=== PATIENT | female | born 1935 | race Caucasian/White ===

== ENCOUNTER 2016-10-09 02:19 | Emergency (ER) | payer MEDICARE, BC ==
[2016-10-09] MEDS ORDERED: OXYMETAZOLINE 0.05% NASL SPRAY 15 ML NASAL STA (02:49)
[2016-10-09] MEDS ORDERED: ACETAMINOPHEN TAB 325 MG TAB PO STA (03:53)
--- NOTE | 2016-10-09 03:54 | ED ---
ENT HPI - General Chief complaint: ENT Stated complaint: nose bleed Time Seen by Provider: 10/09/16 02:44 Source: patient, family Mode of arrival: wheelchair Limitations: no limitations - History of Present Illness Initial comments: This patient is an 80-year-old woman presenting to be evaluated for right-sided epistaxis. The patient states that this occurred between 1-2 hours ago. She had been sleeping and awoke with a feeling that her face was wet. At that time she noticed that her nose was bleeding and the patient states that she has been having recurrent episodes of this since the fall or early winter. She states that the bleeding usually is stopped by a cold compress but tonight's episode continued and when it did not stop after an hour she felt she should be seen here. The patient is denying chest pain, dyspnea, palpitations or syncope, lightheadedness, or other symptoms of anemia. MD complaint: epistaxis -: hour(s) Location: nose Severity: moderate Consistency: constant Improves with: none Worsens with: none Context-Epistaxis: history of similar - Related Data Home Medications Medication Instructions Recorded Confirmed Aspirin 81 mg PO DAILY 07/06/15 07/06/15 Previous Rx's Medication Instructions Recorded Acetaminophen Tab [Tylenol] 650 mg PO Q6HR PRN #0 tab 07/12/15 Aspirin 81 mg PO DAILY chew 07/12/15 Atorvastatin [Lipitor] 80 mg PO HS tab 07/12/15 Ensure 1 can PO TID-W/MEALS liquid 07/12/15 Ipratropium-Albuterol Nebulize 3 ml INHALATION RT-QID PRN 07/12/15 [Duoneb 0.5 mg-3 mg/3 ml Soln] ampul.neb Lisinopril [Zestril] 2.5 mg PO DAILY tab 07/12/15 Mag Hydrox/Al Hydrox/Simeth 30 ml PO Q4HR PRN #0 cup 07/12/15 [Maalox] Metoprolol Tartrate [Lopressor] 25 mg PO BID tab 07/12/15 Nitroglycerin Sl Tabs [Nitrostat] 0.4 mg SUBLINGUAL Q5M PRN #0 tab 07/12/15 Ticagrelor [Brilinta] 90 mg PO BID tab 07/12/15 Allergies Allergy/AdvReac Type Severity Reaction Status Date / Time amoxicillin trihydrate Allergy Unknown Verified 10/09/16 02:25 [From Augmentin] potassium clavulanate Allergy Unknown Verified 10/09/16 02:25 [From Augmentin] Review of Systems ROS Statement: Those systems with pertinent positive or pertinent negative responses have been documented in the HPI. ROS Other: All systems not noted in ROS Statement are negative. Constitutional: Denies: fever, chills, weakness ENT: Reports: epistaxis Cardiovascular: Denies: chest pain, palpitations, syncope Gastrointestinal: Denies: abdominal pain, vomiting Musculoskeletal: Denies: back pain Neurological: Denies: headache, weakness, numbness Psychiatric: Reports: anxiety Hematological/Lymphatic: Reports: other (Taking Plavix). Denies: easy bleeding Past Medical History Past Medical History: Chest Pain / Angina Additional Past Medical History / Comment(s): History of borderline diabetes, CVA, hypothyroidism and COPD. Patient noncompliant with medications. Last Myocardial Infarction Date:: 07/06/2015 History of Any Multi-Drug Resistant Organisms: None Reported Past Surgical History: Unable to Obtain Past Anesthesia/Blood Transfusion Reactions: No Reported Reaction Past Psychological History: Unable to Obtain Additional Psychological History / Comment(s): per family Jolly "patient has bouts of paranoia" Parviz "she gets fixated on things & there is no changing her mind" Smoking Status: Current some day smoker Past Alcohol Use History: None Reported Past Drug Use History: None Reported - Past Family History Mother Family Medical History: Congestive Heart Failure (CHF) General Exam Limitations: no limitations General appearance: alert, in no apparent distress Head exam: Present: atraumatic, normocephalic, normal inspection Eye exam: Present: normal appearance. Absent: scleral icterus, conjunctival injection ENT exam: Present: other (Initial examination reveals a small amount bleeding occurring from the right nare. Not able to visualize the site of bleeding due to large clot.) Neck exam: Present: normal inspection, full ROM. Absent: lymphadenopathy Respiratory exam: Present: normal lung sounds bilaterally. Absent: respiratory distress, wheezes, rales, rhonchi, stridor Cardiovascular Exam: Present: regular rate, normal rhythm, normal heart sounds. Absent: systolic murmur, diastolic murmur, rubs, gallop GI/Abdominal exam: Present: soft. Absent: tenderness Extremities exam: Present: normal inspection, normal capillary refill. Absent: pedal edema, calf tenderness Back exam: Present: normal inspection. Absent: CVA tenderness (R), CVA tenderness (L) Neurological exam: Present: alert Skin exam: Present: warm, dry, intact, normal color. Absent: rash Course Vital Signs 10/09/16 10/09/16 02:23 04:13 Temperature 97.6 F 98 F Pulse Rate 77 78 Respiratory 20 18 Rate Blood Pressure 112/60 110/66 O2 Sat by Pulse 96 99 Oximetry Medical Decision Making - Medical Decision Making This patient is an 80-year-old woman with right-sided epistaxis. I was able to remove a moderate size clot. I applied some oxymetazoline alone and then held pressure for proximally 20 minutes. This resulted in the bleeding stopping. I then was able to perform a good inspection and do not see any further source of bleeding. Bacitracin ointment applied to the nasal septum bilaterally. The patient observed then for another 30-40 minutes with no recurrent bleeding. The patient is asymptomatic and can be safely discharged home. Return parameters discussed Disposition Clinical Impression: Epistaxis Disposition: HOME SELF-CARE Condition: Good Instructions: Nosebleed (ED) Referrals: Jolly Loaiza DO [Primary Care Provider] - 1-2 days
[2016-10-09 04:14] VITALS: BP 110/66; PULSE 78; RESP 18; TEMP 98
== END 2016-10-09 04:14 | disposition home or self-care (01) ==
LOC: EC 02:19
DX: R04.0 Epistaxis (principal); Z86.73 Personal history of transient ischemic attack (TIA), and cerebral infarction without residual deficits; I25.2 Old myocardial infarction; Z79.02 Long term (current) use of antithrombotics/antiplatelets; Z79.899 Other long term (current) drug therapy; Z79.82 Long term (current) use of aspirin; F17.200 Nicotine dependence, unspecified, uncomplicated; Z88.1 Allergy status to other antibiotic agents; Z88.0 Allergy status to penicillin
CPT/HCPCS: 99282; 99283

== ENCOUNTER 2016-10-10 10:55 | Emergency (ER) | payer MEDICARE, BC ==
[2016-10-10] MEDS ORDERED: OXYMETAZOLINE 0.05% NASL SPRAY 15 ML NASAL STA (12:14)
[2016-10-10 13:16] LABS: Basophils # (A) 0.1 k/uL (0-0.2); Basophils % (A) 1 %; CH 31.4; CHCM 32.8; Eosinophils # (A) 0.2 k/uL (0-0.7); Eosinophils % (A) 2 %; HGB 13.6 gm/dL (11.4-16.0); Luc # (Auto) 0.31; Luc % (Auto) 2; Lymphocytes # (A) 2.7 k/uL (1.0-4.8); Lymphocytes % (A) 21 %; MCH 31.1 pg (25.0-35.0); MCHC 32.3 g/dL (31.0-37.0); MCV 96.2 fL (80.0-100.0); Monocytes # (A) 0.5 k/uL (0-1.0); Monocytes % (A) 4 %; Neutrophils % (A) 70 %; RBC 4.37 m/uL (3.80-5.40); RDW 13.8 % (11.5-15.5); WBC 12.9 k/uL (3.8-10.6); WBC (Perox) 13.06
[2016-10-10 13:27] LABS: Anion Gap 12 mmol/L; Blood Urea Nitrogen 18 mg/dL (7-17); Calcium 9.8 mg/dL (8.4-10.2); Carbon Dioxide 24 mmol/L (22-30); Chloride 108 mmol/L (98-107); Glucose 97 mg/dL (74-99); Non-African American GFR(MDRD) 58 (>60 ml/min/1.73 sqM); Potassium 4.4 mmol/L (3.5-5.1); Sodium 144 mmol/L (137-145)
--- NOTE | 2016-10-10 13:52 | ED ---
General Adult HPI - General Chief complaint: ENT Stated complaint: NOSEBLEED Time Seen by Provider: 10/10/16 11:27 Source: family Mode of arrival: wheelchair Limitations: no limitations - History of Present Illness Initial comments: 80-year-old female presented for evaluation of epistaxis that started this morning and has continued throughout the day. She states she was evaluated at this facility 2 days ago for the same complaint and symptoms were able to be controlled with nasal spray and nose clamp. She has been putting Vaseline in her nostril at the request of her son who is also physician but despite these measures symptoms resumed. She is on home Plavix and aspirin but denies any other blood thinners. There is no associated trauma. She admits that there was a mild case of dizziness in the morning following the bleeding but this is resolved and she is back to baseline. She denies chest pain, shortness breath, fevers, chills, nausea, vomiting, change in vision. - Related Data Home Medications Medication Instructions Recorded Confirmed Aspirin 81 mg PO DAILY@182907/06/15 10/10/16 Atorvastatin [Lipitor] 80 mg PO DAILY@182910/10/16 10/10/16 Clopidogrel [Plavix] 75 mg PO DAILY@182910/10/16 10/10/16 Ergocalciferol (Vitamin D2) 50,000 unit PO Q7D 10/10/16 10/10/16 [Vitamin D2] Lisinopril [Zestril] 5 mg PO DAILY@182910/10/16 10/10/16 Metoprolol Succinate (ER) [Toprol 25 mg PO DAILY@182910/10/16 10/10/16 Xl] Previous Rx's Medication Instructions Recorded Nitroglycerin Sl Tabs [Nitrostat] 0.4 mg SUBLINGUAL Q5M PRN #0 tab 07/12/15 Allergies Allergy/AdvReac Type Severity Reaction Status Date / Time amoxicillin trihydrate Allergy Unknown Verified 10/10/16 12:11 [From Augmentin] potassium clavulanate Allergy Unknown Verified 10/10/16 12:11 [From Augmentin] Review of Systems ROS Statement: Those systems with pertinent positive or pertinent negative responses have been documented in the HPI. ROS Other: All systems not noted in ROS Statement are negative. Constitutional: Denies: fever, chills Eyes: Denies: eye pain, eye discharge ENT: Reports: epistaxis, congestion. Denies: ear pain, throat pain Respiratory: Denies: cough, dyspnea Cardiovascular: Denies: chest pain, palpitations, dyspnea on exertion, syncope Endocrine: Denies: polydipsia, polyuria Gastrointestinal: Denies: abdominal pain, nausea, vomiting, diarrhea Genitourinary: Denies: urgency, dysuria Musculoskeletal: Denies: back pain, myalgia Skin: Denies: rash, lesions Neurological: Reports: other (Dizziness). Denies: headache, weakness Psychiatric: Denies: anxiety, depression Past Medical History Past Medical History: Chest Pain / Angina Additional Past Medical History / Comment(s): History of borderline diabetes, CVA, hypothyroidism and COPD. Patient noncompliant with medications. Last Myocardial Infarction Date:: 07/06/2015 History of Any Multi-Drug Resistant Organisms: None Reported Past Surgical History: Bowel Resection, Heart Catheterization With Stent Past Anesthesia/Blood Transfusion Reactions: No Reported Reaction Past Psychological History: Unable to Obtain Additional Psychological History / Comment(s): per family Jolly "patient has bouts of paranoia" Parviz "she gets fixated on things & there is no changing her mind" Smoking Status: Current some day smoker Past Alcohol Use History: None Reported Past Drug Use History: None Reported - Past Family History Mother Family Medical History: Congestive Heart Failure (CHF) General Exam Limitations: no limitations General appearance: alert, in no apparent distress Head exam: Present: atraumatic, normocephalic Eye exam: Present: normal appearance, PERRL, EOMI Pupils: Present: normal accommodation. Absent: unequal ENT exam: Present: other (Active epistaxis when nose clamp removed, scant blood in posterior oropharynx) Neck exam: Present: normal inspection. Absent: tenderness Respiratory exam: Present: normal lung sounds bilaterally. Absent: respiratory distress, wheezes, rales, rhonchi, stridor Cardiovascular Exam: Present: regular rate, normal rhythm. Absent: bradycardia , tachycardia GI/Abdominal exam: Present: soft. Absent: distended, tenderness Rectal exam: Present: deferred Extremities exam: Present: normal inspection, full ROM Back exam: Present: normal inspection, full ROM. Absent: tenderness, CVA tenderness (R) Neurological exam: Present: alert, oriented X3, CN II-XII intact, normal gait. Absent: altered Psychiatric exam: Present: normal affect, normal mood Skin exam: Present: warm, dry, intact Course Vital Signs 10/10/16 10/10/16 11:02 14:08 Temperature 97.2 F L 97.9 F Pulse Rate 85 83 Respiratory 20 14 Rate Blood Pressure 159/69 121/60 O2 Sat by Pulse 95 94 L Oximetry EKG Findings - EKG Comments: EKG Findings:: EKG shows normal sinus rhythm with ventricular rate of 80, JOSE ENRIQUE 172 QRS 90, QT/QTc 420/484 Medical Decision Making - Medical Decision Making 80-year-old female presented for evaluation of epistaxis that started this morning. She is currently on Plavix and aspirin and was seen at this facility 2 days ago for similar symptoms which resolved with nasal spray and clamping. Today she presents stating that she will not take nasal packing and that the bleeding has to be controlled by other means. On physical examination there is slow bleeding from the right nare and scant blood in the posterior oropharynx. Patient instructed to blow her nose, Afrin provided, and tongue depressor clamp was applied for no less than 20 minutes. Upon removal the patient had resolution of her bleeding. She was observed for the next 30-45 minutes and had no return of symptoms. She was advised to follow-up with her primary care physician but to return to this facility if her symptoms should worsen or persist. Patient acknowledged an understanding of this information and agreed with this plan of care. She stated that she are he had a referral for an ENT specialist and none would be needed at this time. - Lab Data Result diagrams: 10/10/16 13:03 10/10/16 13:03 Lab Results 10/10/16 10/10/16 Range/Units 13:03 13:03 WBC 12.9 H (3.8-10.6) k/uL RBC 4.37 (3.80-5.40) m/uL Hgb 13.6 (11.4-16.0) gm/dL Hct 42.0 (34.0-46.0) % MCV 96.2 (80.0-100.0) fL MCH 31.1 (25.0-35.0) pg MCHC 32.3 (31.0-37.0) g/dL RDW 13.8 (11.5-15.5) % Plt Count 363 (150-450) k/uL Neutrophils % 70 % Lymphocytes % 21 % Monocytes % 4 % Eosinophils % 2 % Basophils % 1 % Neutrophils # 9.0 H (1.3-7.7) k/uL Lymphocytes # 2.7 (1.0-4.8) k/uL Monocytes # 0.5 (0-1.0) k/uL Eosinophils # 0.2 (0-0.7) k/uL Basophils # 0.1 (0-0.2) k/uL Sodium 144 (137-145) mmol/L Potassium 4.4 (3.5-5.1) mmol/L Chloride 108 H (98-107) mmol/L Carbon Dioxide 24 (22-30) mmol/L Anion Gap 12 mmol/L BUN 18 H (7-17) mg/dL Creatinine 0.93 (0.52-1.04) mg/dL Est GFR (MDRD) Af Amer >60 (>60 ml/min/1.73 sqM) Est GFR (MDRD) Non-Af 58 (>60 ml/min/1.73 sqM) Glucose 97 (74-99) mg/dL Calcium 9.8 (8.4-10.2) mg/dL Disposition Clinical Impression: Epistaxis, recurrent, Epistaxis Disposition: HOME SELF-CARE Condition: Stable Instructions: Nosebleed (ED) Referrals: Jolly Loaiza DO [Primary Care Provider] - 1-2 days Time of Disposition: 13:52
[2016-10-10 14:11] VITALS: BP 121/60; PULSE 83; RESP 14; TEMP 97.9
== END 2016-10-10 14:10 | disposition home or self-care (01) ==
LOC: EC 10:55
DX: R04.0 Epistaxis (principal); F17.200 Nicotine dependence, unspecified, uncomplicated; Z79.82 Long term (current) use of aspirin; Z79.02 Long term (current) use of antithrombotics/antiplatelets; Z91.14 Patient's other noncompliance with medication regimen; Z95.5 Presence of coronary angioplasty implant and graft; Z88.0 Allergy status to penicillin; Z79.899 Other long term (current) drug therapy; Z86.73 Personal history of transient ischemic attack (TIA), and cerebral infarction without residual deficits
CPT/HCPCS: 36415; 80048; 85025; 93005; 99283

== ENCOUNTER 2017-01-24 13:24 | Inpatient (IN) | payer MEDICARE, BC ==
[2017-01-24] MEDS ORDERED: SODIUM CHLORIDE 0.9% 500 ML IV STA (14:27)
--- NOTE | 2017-01-24 14:31 | ED ---
General Adult HPI - General Chief complaint: Weakness Stated complaint: Dehydration Time Seen by Provider: 01/24/17 13:40 Source: patient, RN notes reviewed Mode of arrival: ambulatory Limitations: no limitations - History of Present Illness Initial comments: This is an 81-year-old female who presents emergency Department complaining that she has been weaker over the last 2 weeks. Patient states she's been lightheaded and also vomits almost every single day. Patient states currently she is not nauseated. Patient states she does not feel lightheaded currently while lying in bed. Patient states she recently had a CAT scan of her chest abdomen pelvis but she cannot tell me what for. He was done at another hospital we will obtain those records. Patient denies any fever but states she' s always cold. Patient denies taking any Motrin or Tylenol today. Patient denies headache patient denies numbness weakness. Patient denies any back pain. Patient denies any dysuria hematuria urinary frequency. - Related Data Home Medications Medication Instructions Recorded Confirmed Aspirin 81 mg PO DAILY 07/06/15 01/24/17 Atorvastatin [Lipitor] 80 mg PO DAILY 10/10/16 01/24/17 Clopidogrel [Plavix] 75 mg PO DAILY 10/10/16 01/24/17 Ergocalciferol (Vitamin D2) 50,000 unit PO Q7D 10/10/16 01/24/17 [Vitamin D2] Lisinopril [Zestril] 5 mg PO DAILY 10/10/16 01/24/17 Metoprolol Succinate (ER) [Toprol 25 mg PO DAILY 10/10/16 01/24/17 Xl] Levothyroxine Sodium [Synthroid] 50 mcg PO DAILY 01/24/17 01/24/17 Previous Rx's Medication Instructions Recorded Nitroglycerin Sl Tabs [Nitrostat] 0.4 mg SUBLINGUAL Q5M PRN #0 tab 07/12/15 Allergies Allergy/AdvReac Type Severity Reaction Status Date / Time amoxicillin trihydrate Allergy Unknown Verified 01/24/17 14:53 [From Augmentin] potassium clavulanate Allergy Unknown Verified 01/24/17 14:52 [From Augmentin] Review of Systems ROS Statement: Those systems with pertinent positive or pertinent negative responses have been documented in the HPI. ROS Other: All systems not noted in ROS Statement are negative. Past Medical History Past Medical History: Chest Pain / Angina Additional Past Medical History / Comment(s): History of borderline diabetes, CVA, hypothyroidism and COPD. Patient noncompliant with medications. Last Myocardial Infarction Date:: 07/06/2015 History of Any Multi-Drug Resistant Organisms: None Reported Past Surgical History: Bowel Resection, Heart Catheterization With Stent Past Anesthesia/Blood Transfusion Reactions: No Reported Reaction Past Psychological History: Unable to Obtain Smoking Status: Current some day smoker Past Alcohol Use History: None Reported Past Drug Use History: None Reported - Past Family History Mother Family Medical History: Congestive Heart Failure (CHF) General Exam - General Exam Comments Initial Comments: GENERAL: Patient is well-developed and well-nourished. Patient is nontoxic and well- hydrated and is in mild distress. ENT: Neck is soft and supple. No significant lymphadenopathy is noted. Oropharynx is clear. Moist mucous membranes. Neck has full range of motion without eliciting any pain. EYES: The sclera were anicteric and conjunctiva were pink and moist. Extraocular movements were intact and pupils were equal round and reactive to light. Eyelids were unremarkable. PULMONARY: Unlabored respirations. Good breath sounds bilaterally. No audible rales rhonchi or wheezing was noted. CARDIOVASCULAR: Patient is bradycardic at about 30 beats a minute ABDOMEN: Soft and nontender with normal bowel sounds. No palpable organomegaly was noted. There is no palpable pulsatile mass. SKIN: Skin is clear with no lesions or rashes and otherwise unremarkable. NEUROLOGIC: Patient is alert and oriented x3. Cranial nerves II through XII are grossly intact. Motor and sensory are also intact. Normal speech, volume and content. Symmetrical smile.. MUSCULOSKELETAL: Normal extremities with adequate strength and full range of motion. LYMPHATICS: No significant lymphadenopathy is noted PSYCHIATRIC: Normal psychiatric evaluation. Normal interpersonal interactions appears functionally intact in deals appropriately with others. No signs of depression. No signs of anxiety. Limitations: no limitations Course Vital Signs 01/24/17 01/24/17 01/24/17 13:30 13:37 14:00 Temperature 98.3 F Pulse Rate 32 L 31 L Pulse Rate [ 31 L Crude Oil Driver ] Respiratory 22 18 22 Rate Blood Pressure 170/68 140/40 O2 Sat by Pulse 96 98 Oximetry 01/24/17 01/24/17 01/24/17 15:00 15:06 15:15 Temperature Pulse Rate 34 L 29 L 29 L Pulse Rate [ Crude Oil Driver ] Respiratory 22 16 16 Rate Blood Pressure 170/50 148/60 161/73 O2 Sat by Pulse 99 96 96 Oximetry 01/24/17 16:11 Temperature Pulse Rate 29 L Pulse Rate [ Crude Oil Driver ] Respiratory 16 Rate Blood Pressure 148/67 O2 Sat by Pulse 96 Oximetry Medical Decision Making - Medical Decision Making EKG shows third-degree AV block at 32 bpm QRS is under 4 QT interval 702 QTC is 512. Patient's EKG shows no ST segment elevation or depression. Patient is having a third-degree heart block I spoke with Dr. Ojeda that we can also the patient he called me again wanted the patient minute the ICU. I spoke with Dr. Orozco he agreed to take the patient in the ICU. I spoke with Dr. Riojas and he agreed to accept the patient. I wrote admitting orders and put the patient in the ICU. I canceled the patient's metoprolol - Lab Data Result diagrams: 01/24/17 14:13 01/24/17 14:13 Lab Results 01/24/17 01/24/17 01/24/17 Range/Units 14:13 14:13 14:13 WBC (3.8-10.6) k/uL RBC (3.80-5.40) m/uL Hgb (11.4-16.0) gm/dL Hct (34.0-46.0) % MCV (80.0-100.0) fL MCH (25.0-35.0) pg MCHC (31.0-37.0) g/dL RDW (11.5-15.5) % Plt Count (150-450) k/uL Neutrophils % % Lymphocytes % % Monocytes % % Eosinophils % % Basophils % % Neutrophils # (1.3-7.7) k/uL Lymphocytes # (1.0-4.8) k/uL Monocytes # (0-1.0) k/uL Eosinophils # (0-0.7) k/uL Basophils # (0-0.2) k/uL PT 13.0 H (9.0-12.0) sec INR 1.3 (<1.1) APTT 21.5 L (22.0-30.0) sec Sodium 140 (137-145) mmol/L Potassium 4.7 (3.5-5.1) mmol/L Chloride 110 H (98-107) mmol/L Carbon Dioxide 19 L (22-30) mmol/L Anion Gap 11 mmol/L BUN 51 H (7-17) mg/dL Creatinine 1.20 H (0.52-1.04) mg/dL Est GFR (MDRD) Af Amer 52 (>60 ml/min/1.73 sqM) Est GFR (MDRD) Non-Af 43 (>60 ml/min/1.73 sqM) Glucose 107 H (74-99) mg/dL Calcium 8.8 (8.4-10.2) mg/dL Magnesium 2.5 H (1.6-2.3) mg/dL Total Bilirubin 0.5 (0.2-1.3) mg/dL AST 142 H (14-36) U/L ALT 276 H (9-52) U/L Alkaline Phosphatase 141 H (38-126) U/L Total Creatine Kinase 41 (30-135) U/L CK-MB (CK-2) 1.1 (0.0-2.4) ng/mL CK-MB (CK-2) Rel Index 2.7 Troponin I 0.025 (0.000-0.034) ng/mL Total Protein 5.6 L (6.3-8.2) g/dL Albumin 3.2 L (3.5-5.0) g/dL /02/03 Range/Units 14:13 WBC 11.2 H (3.8-10.6) k/uL RBC 4.15 (3.80-5.40) m/uL Hgb 13.3 (11.4-16.0) gm/dL Hct 39.8 (34.0-46.0) % MCV 95.9 (80.0-100.0) fL MCH 32.0 (25.0-35.0) pg MCHC 33.4 (31.0-37.0) g/dL RDW 15.1 (11.5-15.5) % Plt Count 227 (150-450) k/uL Neutrophils % 68 % Lymphocytes % 25 % Monocytes % 5 % Eosinophils % 1 % Basophils % 1 % Neutrophils # 7.6 (1.3-7.7) k/uL Lymphocytes # 2.8 (1.0-4.8) k/uL Monocytes # 0.5 (0-1.0) k/uL Eosinophils # 0.1 (0-0.7) k/uL Basophils # 0.1 (0-0.2) k/uL PT (9.0-12.0) sec INR (<1.1) APTT (22.0-30.0) sec Sodium (137-145) mmol/L Potassium (3.5-5.1) mmol/L Chloride (98-107) mmol/L Carbon Dioxide (22-30) mmol/L Anion Gap mmol/L BUN (7-17) mg/dL Creatinine (0.52-1.04) mg/dL Est GFR (MDRD) Af Amer (>60 ml/min/1.73 sqM) Est GFR (MDRD) Non-Af (>60 ml/min/1.73 sqM) Glucose (74-99) mg/dL Calcium (8.4-10.2) mg/dL Magnesium (1.6-2.3) mg/dL Total Bilirubin (0.2-1.3) mg/dL AST (14-36) U/L ALT (9-52) U/L Alkaline Phosphatase (38-126) U/L Total Creatine Kinase (30-135) U/L CK-MB (CK-2) (0.0-2.4) ng/mL CK-MB (CK-2) Rel Index Troponin I (0.000-0.034) ng/mL Total Protein (6.3-8.2) g/dL Albumin (3.5-5.0) g/dL Critical Care Time Critical Care Time: Yes Total Critical Care Time: 35 Disposition Clinical Impression: Third degree heart block Disposition: ADMITTED IP TO THIS HOSP Referrals: Jolly Loaiza DO [Primary Care Provider] - 1-2 days Time of Disposition: 16:16
[2017-01-24 14:59] LABS: Calcium 8.8 mg/dL (8.4-10.2); Magnesium 2.5 mg/dL (1.6-2.3); Potassium 4.7 mmol/L (3.5-5.1); Total Bilirubin 0.5 mg/dL (0.2-1.3); Total Protein 5.6 g/dL (6.3-8.2)
--- NOTE | 2017-01-24 15:06 | XR ---
EXAMINATION TYPE: XR chest 2V DATE OF EXAM: 01/24/2017 COMPARISON: 07/08/2015 HISTORY: 81-year-old female with chest pain TECHNIQUE: AP and lateral views FINDINGS: Heart is mildly enlarged. Diffuse interstitial prominence. Increased patchy peripheral right basilar opacity. No significant pleural effusion seen on the lateral view. 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 IMPRESSION: 1. Patchy peripheral right basilar infiltrate. Correlate for any symptoms of pneumonia. 2. Diffuse interstitial and vascular prominence with mild cardiomegaly. Correlate to exclude mild CHF .
[2017-01-24 15:14] LABS: Basophils # (A) 0.1 k/uL (0-0.2); Basophils % (A) 1 %; CH 30.7; CHCM 32.3; Eosinophils # (A) 0.1 k/uL (0-0.7); Eosinophils % (A) 1 %; HCT 39.8 % (34.0-46.0); HDW 2.46; HGB 13.3 gm/dL (11.4-16.0); Luc # (Auto) 0.18; Luc % (Auto) 2; Lymphocytes # (A) 2.8 k/uL (1.0-4.8); Lymphocytes % (A) 25 %; MCHC 33.4 g/dL (31.0-37.0); MCV 95.9 fL (80.0-100.0); Mean Platelet Volume 9.5; Monocytes # (A) 0.5 k/uL (0-1.0); Monocytes % (A) 5 %; Neutrophils # (A) 7.6 k/uL (1.3-7.7); Neutrophils % (A) 68 %; RBC 4.15 m/uL (3.80-5.40); RDW 15.1 % (11.5-15.5); WBC 11.2 k/uL (3.8-10.6); WBC (Perox) 11.68
[2017-01-24 15:16] LABS: INR 1.3 (<1.1)
[2017-01-24 15:20] LABS: Partial Thromboplastin Time 21.5 sec (22.0-30.0)
[2017-01-24] MEDS ORDERED: ceFAZolin 1,000 MG in SODIUM CHLORIDE 0.9% IRRIGATIO 250 ML IRRIGATION ONE (15:24)
[2017-01-24] MEDS ORDERED: ceFAZolin 2 GM in SODIUM CHLORIDE 0.9% 100 ML IVPB ONE (15:24)
[2017-01-24 15:35] LABS: Creatine Kinase MB 1.1 ng/mL (0.0-2.4); Troponin I 0.025 ng/mL (0.000-0.034)
[2017-01-24] MEDS ORDERED: NALOXONE 0.4 MG/ML 1 ML VIAL IV PRN (16:16)
[2017-01-24] MEDS ORDERED: SODIUM CHLORIDE 0.9% 1,000 ML IV SCH (16:30)
[2017-01-24 17:22] LABS: Glucose,Whole Blood 106 mg/dL (75-99)
[2017-01-24] MEDS ORDERED: LEVOFLOXACIN 500 MG TAB PO STA (18:05)
[2017-01-24] MEDS: amLODIPine 5 MG TAB PO SCH (18:33)
[2017-01-24] MEDS ORDERED: IPRATROPIUM-ALBUTEROL 3 ML NEB INHALATION PRN (19:33)
--- NOTE | 2017-01-24 21:05 | P.CNPUL ---
History of Present Illness Consult date: 01/24/17 Requesting physician: Heidi Kyle Reason for consult: COPD, pleural effusion, other (Third-degree AV block.) Chief complaint: Profound weakness and lightheadedness History of present illness: This is an 81-year-old female who was the mother of Dr. Loaiza, with history of multiple medical problems including previous CVA, previous ST elevation myocardial infarction and previous stent placement, history of COPD, 40-pack- year smoker, history of hypertension, hyperlipidemia, and history of borderline diabetes as well as hypothyroidism. Patient presented to the ER with 2 weeks history of feeling weak, tired, has been losing weight almost 20 pounds in the last few months, feeling lightheaded intermittently, and she had significant cold intolerance. Upon evaluation in the ER, patient was found to be in third- degree AV block. Patient was seen by cardiology, beta blockers/metoprolol placed on hold, and if she remains in third-degree AV block, permanent pacemaker implantation is planned to be done in a.m. Patient was admitted to the intensive care unit, and I was asked to see her on consultation. Recently, according to her son ,, patient had extensive workup including CT of abdomen chest and pelvis, and she was found to have a 2.0 cm subpleural nodule in the right middle lobe area, she was also noted to have right hilar lymph node measuring 1.5 cm, small right pleural effusion was noted, and she was also noted to have an adrenal nodule about 1.5 cm in size. Of course there is some concern about possible malignancy knowing in fact that the patient has been a heavy smoker over the years, and she has been losing weight significantly over the last couple of months. No repeat CT of the chest was done, however her chest x-ray showed patchy perihilar right basilar infiltrate, no significant pleural effusion was noted, and there was slight prominence of the interstitium. Patient also describes multiple GI symptoms including intermittent episodes of nausea vomiting and diarrhea, but no melena, no hematemesis, no dysuria, no frequency, no urgency. Patient had a recent lab tests showing that she was admitted to hypothyroid with TSH about 12. Considering her third-degree AV block, and considering her recent abnormal CT of the chest which was done at [facility], considering her weight loss , and considering the patient was admitted to the intensive care unit, I was asked to see her on consultation. Review of Systems 14 point review of systems were obtained, please refer to pertinent positives and negatives in HPI. Patient has occasional headaches, no blurred vision, she has intermittent episodes of lightheadedness especially in the last 2 weeks. Patient has intermittent episodes of cough and wheezing, cough is productive with whitish phlegm. Denies any chest pains, denies feeling any palpitations. She has multiple GI symptoms including nausea vomiting and occasional diarrhea, and definite weight loss. Patient describes no symptoms of dysuria frequency or urgency. No melena no hematemesis. She has some vague aches and pains, and generalized weakness as well as cold intolerance. Past Medical History Past Medical History: Coronary Artery Disease (CAD), Chest Pain / Angina ( Patient had previous ME and stent placement.), COPD, CVA/TIA (Patient had previous CVA with left-sided hemiparesis recovered almost fully, uses a walker with wheels to ambulate.), Diabetes Mellitus, Hyperlipidemia, Liver Disease ( Abnormal liver enzymes felt to be most likely related to her recent dose of Lipitor which is presently on hold.), Myocardial Infarction (ME), Thyroid Disorder Additional Past Medical History / Comment(s): History of borderline diabetes, CVA, hypothyroidism and COPD. Patient noncompliant with medications. Last Myocardial Infarction Date:: 07/06/2015 History of Any Multi-Drug Resistant Organisms: None Reported Past Surgical History: Bowel Resection, Heart Catheterization With Stent Past Anesthesia/Blood Transfusion Reactions: No Reported Reaction Date of Last Stent Placement:: 2014 Past Psychological History: Unable to Obtain Additional Psychological History / Comment(s): per family Jolly "patient has bouts of paranoia" Parviz "she gets fixated on things & there is no changing her mind" Smoking Status: Former smoker - Past Family History Mother Family Medical History: Congestive Heart Failure (CHF) Medications and Allergies Home Medications Medication Instructions Recorded Confirmed Type Aspirin 81 mg PO DAILY 07/06/15 01/24/17 History Atorvastatin [Lipitor] 80 mg PO DAILY 10/10/16 01/24/17 History Clopidogrel [Plavix] 75 mg PO DAILY 10/10/16 01/24/17 History Ergocalciferol (Vitamin D2) 50,000 unit PO Q7D 10/10/16 01/24/17 History [Vitamin D2] Lisinopril [Zestril] 5 mg PO DAILY 10/10/16 01/24/17 History Metoprolol Succinate (ER) [Toprol 25 mg PO DAILY 10/10/16 01/24/17 History Xl] Levothyroxine Sodium [Synthroid] 50 mcg PO DAILY 01/24/17 01/24/17 History Allergies Allergy/AdvReac Type Severity Reaction Status Date / Time amoxicillin trihydrate Allergy Unknown Verified 01/24/17 14:53 [From Augmentin] potassium clavulanate Allergy Unknown Verified 01/24/17 14:52 [From Augmentin] Physical Exam Vitals: Vital Signs Temp Pulse Pulse Resp BP BP Pulse Ox 01/24/17 19:00 27 L 15 194/83 98 01/24/17 18:50 29 L 39 H 193/61 94 L 01/24/17 18:40 30 L 9 L 193/61 87 L 01/24/17 18:30 30 L 11 L 98 01/24/17 18:20 30 L 14 182/79 97 01/24/17 18:10 30 L 8 L 182/79 95 01/24/17 18:00 30 L 11 L 182/79 98 01/24/17 17:50 30 L 24 131/84 97 01/24/17 17:40 31 L 33 H 131/84 97 01/24/17 17:30 30 L 18 131/84 97 01/24/17 17:20 31 L 98 01/24/17 17:18 47 L 01/24/17 17:05 97.1 F L 29 L 16 174/66 96 01/24/17 16:55 96.9 F L 30 L 14 182/79 97 01/24/17 16:11 29 L 16 148/67 96 01/24/17 15:15 29 L 16 161/73 96 01/24/17 15:06 29 L 16 148/60 96 01/24/17 15:00 34 L 22 170/50 99 01/24/17 14:00 31 L 22 140/40 98 01/24/17 13:37 98.3 F 32 L 18 170/68 96 01/24/17 13:30 31 L 22 Intake and Output 01/24/17 01/24/17 01/24/17 06:59 14:59 22:59 Intake Total 100 Balance 100 Intake: IV 100 Sodium Chloride 0.9% 1, 100 000 ml @ 50 mls/hr IV . Q20H [facility] Rx#:[id number] Other: Voiding Method Bedpan Weight 51.71 kg 52 kg Patient Weight 01/25/17 06:59 Weight 52 kg GENERAL: Patient is well-developed and well-nourished. Patient is nontoxic and well- hydrated not in any form of respiratory distress. ENT: Neck is soft and supple. No neck masses, no JVD, no cervical lymphadenopathy. EYES: The sclera were anicteric and conjunctiva were pink and moist. Extraocular movements were intact PULMONARY: Unlabored respirations. Minimal crackles at the right base, some wheezing on forced expiratory maneuver was noted. CARDIOVASCULAR: Patient is bradycardic at about 37 beats a minute ABDOMEN: Soft and nontender with normal bowel sounds. No palpable organomegaly was noted. There is no palpable pulsatile mass. SKIN: Skin is clear with no lesions or rashes and otherwise unremarkable. NEUROLOGIC: No gross focal neurologic deficit MUSCULOSKELETAL: Normal extremities with adequate strength LYMPHATICS: No significant lymphadenopathy is noted PSYCHIATRIC: Normal psychiatric evaluation. Normal interpersonal interactions appears functionally intact in deals appropriately with others. No signs of depression. No signs of anxiety. Results - Laboratory Findings CBC and BMP: 01/24/17 14:13 01/24/17 14:13 PT/INR, D-dimer PT 13.0 sec (9.0-12.0) H 01/24/17 14:13 INR 1.3 (<1.1) 01/24/17 14:13 Abnormal lab findings: Abnormal Labs 01/24/17 01/24/17 01/24/17 14:13 14:13 14:13 WBC 11.2 H PT 13.0 H APTT 21.5 L Chloride 110 H Carbon Dioxide 19 L BUN 51 H Creatinine 1.20 H Glucose 107 H POC Glucose (mg/dL) Magnesium 2.5 H AST 142 H ALT 276 H Alkaline Phosphatase 141 H Total Protein 5.6 L Albumin 3.2 L 01/24/17 17:20 WBC PT APTT Chloride Carbon Dioxide BUN Creatinine Glucose POC Glucose (mg/dL) 106 H Magnesium AST ALT Alkaline Phosphatase Total Protein Albumin - Diagnostic Findings Chest x-ray: image reviewed (Patchy peripheral right base infiltrate suspected, slight prominence of the pulmonary vasculature was also noted.) Assessment and Plan Plan: Impression: 1 acute complete heart block, third-degree AV block, most likely the patient will require permanent pacemaker implantation. This is being planned to be done by cardiology in a.m. In the meantime, beta blockers are placed on hold. 2 suspect right lower lobe infiltrate, community-acquired pneumonia hence the patient will be started on Levaquin. 3 suspect significant component of COPD with mild exacerbation, patient is at least a [id number] smoker. [address] of the chest suggestive of right middle lobe subpleural nodule, small pleural effusion, and adrenal abnormality, malignancy would be considered in the differential, however I plan to address this on outpatient basis by possibly arranging for a PET scan and decide whether to proceed with CT-guided needle biopsy of the peripheral subpleural nodule in the right middle lobe area. 5 history of CVA and left-sided weakness, resolved. 6 history of hypothyroidism, patient is on replacement therapy. 7 history of previous ME, ST elevation myocardial infarction requiring stent placement few years ago. 8 weight loss, exact etiology is not clear at this point, however pulmonary malignancy would have to be considered in the differential. 9 acute kidney injury, possibly prerenal azotemia, patient will be hydrated cautiously and follow up BUN and creatinine will be rechecked in a.m. Recommendation: I had a long discussion with the patient and her son Dr. Loaiza at bedside, and felt at this point will treat all the above issues accordingly. Patient will be given bronchodilators, antibiotics, patient will have a pacemaker implantation/permanent in a.m., and hopefully we could address the issue of her abnormal CT of the chest and pulmonary issues on outpatient basis. We'll continue to follow. Time with Patient: Greater than 30
[2017-01-24] MEDS ORDERED: ONDANSETRON 4 MG/2 ML VIAL IVP PRN (21:21)
[2017-01-24 22:24] LABS: Appearance,Urine Cloudy (Clear); Bacteria,Urine Occasional /hpf; Bilirubin,Urine Negative (Negative); Glucose,Urine (UA) Negative (Negative); Ketones,Urine Negative (Negative); Leukocyte Esterase,Urine Large (Negative); Mucus,Urine Rare /hpf; Nitrite,Urine Negative (Negative); Particle Count 8940; Protein,Urine 1+ (Negative); RBC,Urine 5 /hpf (0-5); Specific Gravity,Urine 1.023 (1.001-1.035); Squamous Epithelial Cell,Urine 6 /hpf (0-4); UA Billing (MACRO vs. MICRO) MICRO; WBC,Urine 38 /hpf (0-5)
[2017-01-25 05:36] LABS: Basophils % (A) 0 %; CH 31.1; CHCM 31.8; Eosinophils # (A) 0.1 k/uL (0-0.7); Eosinophils % (A) 1 %; HCT 37.2 % (34.0-46.0); HDW 2.38; HGB 11.8 gm/dL (11.4-16.0); Luc # (Auto) 0.17; Luc % (Auto) 2; Lymphocytes # (A) 2.2 k/uL (1.0-4.8); Lymphocytes % (A) 22 %; MCH 31.2 pg (25.0-35.0); MCHC 31.8 g/dL (31.0-37.0); MCV 98.3 fL (80.0-100.0); Macrocytosis Slight; Mean Platelet Volume 9.7; Monocytes # (A) 0.5 k/uL (0-1.0); Monocytes % (A) 5 %; Neutrophils # (A) 6.9 k/uL (1.3-7.7); Neutrophils % (A) 70 %; RBC 3.78 m/uL (3.80-5.40); RDW 15.1 % (11.5-15.5); WBC 9.9 k/uL (3.8-10.6); WBC (Perox) 9.95
[2017-01-25 05:45] LABS: Calcium 8.4 mg/dL (8.4-10.2); Magnesium 2.3 mg/dL (1.6-2.3); Phosphorous 4.9 mg/dL (2.5-4.5); Potassium 4.8 mmol/L (3.5-5.1)
[2017-01-25] MEDS ORDERED: SODIUM CHLORIDE 0.9% 200 ML IV ONE (05:46)
[2017-01-25] MEDS ORDERED: DOPamine DRIP 800 MG in DEXTROSE/WATER 1 500ML.BAG IV SCH (05:57)
[2017-01-25] MEDS ORDERED: DOPamine DRIP 500 ML IV ONE (05:59)
--- NOTE | 2017-01-25 07:30 | XR ---
EXAMINATION TYPE: XR chest 1V portable DATE OF EXAM: 01/25/2017 Comparison: 01/24/2017 Clinical History: 81-year-old female shortness of breath Findings: The heart is borderline enlarged, stable. Diffuse interstitial densities and continued patchy right g reater than left basilar opacities. Possible trace effusion on the right. Impression: Slight increasing interstitial opacities and increasing right greater than left bibasilar opacities. Suspected trace right effusion. Correlate for worsening CHF with pulmonary vascular congestion/inters titial edema. Bibasilar infiltrates not excluded.
[2017-01-25] MEDS ORDERED: ceFAZolin 2 GM in SODIUM CHLORIDE 0.9% 100 ML IVPB ONE (08:00)
[2017-01-25] MEDS ORDERED: ceFAZolin 1,000 MG in SODIUM CHLORIDE 0.9% IRRIGATIO 250 ML IRRIGATION ONE (08:00)
[2017-01-25] MEDS: amLODIPine 5 MG TAB PO SCH (08:38)
--- NOTE | 2017-01-25 08:56 | ECHOF ---
Referral Reason:syncope MEASUREMENTS -------- HEIGHT: 157.5 cm WEIGHT: 51.7 kg BP: 131/84 IVSd: 1.1 cm (0.6 - 1.1) LVIDd: 4.2 cm (3.9 - 5.3) LVPWd: 1.1 cm (0.6 - 1.1) IVSs: 1.6 cm LVIDs: 2.8 cm LVPWs: 1.4 cm LAESV Index (A-L): 47.52 ml/m Ao Diam: 2.7 cm (2.0 - 3.7) AV Cusp: 1.0 cm (1.5 - 2.6) LA Diam: 3.2 cm (2.7 - 3.8) MV E Alonso: 2.21 m/s MV DecT: 549 ms MV A Alonso: 1.85 m/s MV E/A Ratio: 1.21 RAP: 5.00 mmHg RVSP: 52.84 mmHg FINDINGS -------- Resting bradycardia (HR<60bpm). This was a technically adequate study. There is borderline concentric left ventricular hypertrophy. Overall left ventricular systolic function is normal with, an EF between 55 - 60 %. The right ventricle is normal in size and function. LA is severely dilated >40 ml/m2 RA appears enlarged. Aortic valve is trileaflet and is moderately thickened. Trace amount of aortic regurgitation. There is no evidence of aortic stenosis. The mitral valve leaflets are moderately thickened. Severe mitral annular calcification present. Muvg-bz-vbretjoj mitral regurgitation is present. Ynalfjey-rc-bhksuz mitral stenosis. Moderate tricuspid regurgitation present. There is moderate pulmonary hypertension. The right ventricular systolic pressure, as measured by Doppler, is 52.84mmHg. The pulmonic valve was not well visualized. The aortic root size is normal. Normal inferior vena cava with normal inspiratory collapse consistent with estimated right atrial pressure of 5 mmHg. The pericardium is normal. There is no pericardial effusion. CONCLUSIONS -------- 1. Resting bradycardia (HR<60bpm). 2. The mitral valve leaflets are moderately thickened. 3. Severe mitral annular calcification present. 4. Bjdj-dy-hvflrkoz mitral regurgitation is present. 5. Qmgyvacy-wh-zczhxp mitral stenosis. 6. Moderate tricuspid regurgitation present. 7. There is moderate pulmonary hypertension. 8. The right ventricular systolic pressure, as measured by Doppler, is 52.84mmHg. 9. The pulmonic valve was not well visualized. 10. The aortic root size is normal. 11. There is no pericardial effusion. 12. This was a technically adequate study. 13. There is borderline concentric left ventricular hypertrophy. 14. Overall left ventricular systolic function is normal with, an EF between 55 - 60 %. 15. LA is severely dilated >40 ml/m2 16. RA appears enlarged. 17. Aortic valve is trileaflet and is moderately thickened. 18. Trace amount of aortic regurgitation. 19. There is no evidence of aortic stenosis. HAY BALER: Miles Elias RDCS
[2017-01-25] MEDS ORDERED: FUROSEMIDE 10 MG/ML 2 ML VIAL IV ONE (09:05)
[2017-01-25] MEDS ORDERED: SODIUM CHLORIDE 0.9% 1,000 ML IV SCH (09:15)
--- NOTE | 2017-01-25 10:34 | P.PN ---
Subjective Principal diagnosis: Complete heart block This is an 81-year-old female who was the mother of Dr. Loaiza, with history of multiple medical problems including previous CVA, previous ST elevation myocardial infarction and previous stent placement, history of COPD, 40-pack- year smoker, history of hypertension, hyperlipidemia, and history of borderline diabetes as well as hypothyroidism. Patient presented to the ER with 2 weeks history of feeling weak, tired, has been losing weight almost 20 pounds in the last few months, feeling lightheaded intermittently, and she had significant cold intolerance. Upon evaluation in the ER, patient was found to be in third- degree AV block. Patient was seen by cardiology, beta blockers/metoprolol placed on hold, and if she remains in third-degree AV block, permanent pacemaker implantation is planned to be done in a.m. Patient was admitted to the intensive care unit, and I was asked to see her on consultation. Recently, according to her son ,, patient had extensive workup including CT of abdomen chest and pelvis, and she was found to have a 2.0 cm subpleural nodule in the right middle lobe area, she was also noted to have right hilar lymph node measuring 1.5 cm, small right pleural effusion was noted, and she was also noted to have an adrenal nodule about 1.5 cm in size. Of course there is some concern about possible malignancy knowing in fact that the patient has been a heavy smoker over the years, and she has been losing weight significantly over the last couple of months. No repeat CT of the chest was done, however her chest x-ray showed patchy perihilar right basilar infiltrate, no significant pleural effusion was noted, and there was slight prominence of the interstitium. Patient also describes multiple GI symptoms including intermittent episodes of nausea vomiting and diarrhea, but no melena, no hematemesis, no dysuria, no frequency, no urgency. Patient had a recent lab tests showing that she was admitted to hypothyroid with TSH about 12. Considering her third-degree AV block, and considering her recent abnormal CT of the chest which was done at [facility], considering her weight loss , and considering the patient was admitted to the intensive care unit, I was asked to see her on consultation. Patient was reevaluated today on 01/25/2017, patient is now on dopamine at 3 mcg/ kg/m for low blood pressure, Norvasc was placed on hold, blood pressure is now about 140 systolic, and 80 diastolic. Patient is experiencing lightheadedness, nausea and vomiting, no chest pain, no fever, no chills, and she is scheduled to have permanent pacemaker placement this morning. Continues to be in third- degree AV block. Chest x-ray is showing mild congestive heart failure changes hence I recommended one dose of Lasix to be given. CBC is relatively normal, electrolytes are abnormal with bicarb level of 15, BUN is 50 creatinine is 1.09. Chest x-ray is showing increased interstitial opacities and trace of right pleural effusion, I believe this is mostly a picture of mild congestive heart failure and pulmonary edema. Underlying pneumonia is not entirely ruled out especially in the right lower lobe. Objective - Vital Signs Vital signs: Vital Signs Temp 98.2 F 01/25/17 08:00 Pulse 31 L 01/25/17 09:00 Resp 19 01/25/17 09:00 BP 142/68 01/25/17 09:00 Pulse Ox 92 L 01/25/17 09:00 Intake & Output 01/24/17 01/25/17 01/25/17 18:59 06:59 18:59 Intake Total 50 801.139 163.887 Output Total 275 Balance 50 526.139 163.887 Weight 52 kg 55.3 kg Intake: IV 50 800 150 Sodium Chloride 0.9% 1, 50 600 150 000 ml @ 50 mls/hr IV . Q20H [facility] Rx#:[id number] Sodium Chloride 0.9% 500 200 ml @ 999 mls/hr IV .Q31M [facility] Rx#:[id number] Intake, IV Titration 1.139 13.887 Amount DOPamine DRIP 800 mg In 1.139 13.887 Dextrose/Water 1 500ml. bag @ 1 MCG/KG/MIN 2.07 mls/hr IV .Q24H [facility] Rx#: [id number] Output: Urine 275 Other: Voiding Method Bedside Commode Bedside Commode - Exam GENERAL: Patient is well-developed and well-nourished. Patient is nontoxic and well- hydrated not in any form of respiratory distress. ENT: Neck is soft and supple. No neck masses, no JVD, no cervical lymphadenopathy. EYES: The sclera were anicteric and conjunctiva were pink and moist. Extraocular movements were intact PULMONARY: Unlabored respirations. Crackles and rhonchi at the bases bilaterally right more so than left. CARDIOVASCULAR: Patient is bradycardic at about 30 beats a minute ABDOMEN: Soft and nontender with normal bowel sounds. No palpable organomegaly was noted. There is no palpable pulsatile mass. SKIN: Skin is clear with no lesions or rashes and otherwise unremarkable. NEUROLOGIC: No gross focal neurologic deficit MUSCULOSKELETAL: Normal extremities with adequate strength LYMPHATICS: No significant lymphadenopathy is noted PSYCHIATRIC: Normal psychiatric evaluation. Normal interpersonal interactions appears functionally intact in deals appropriately with others. No signs of depression. No signs of anxiety. - Labs CBC & Chem 7: 01/25/17 04:59 01/25/17 04:59 Labs: Abnormal Lab Results - Last 24 Hours (Table) 01/24/17 01/24/17 01/24/17 Range/Units 14:13 14:13 14:13 WBC 11.2 H (3.8-10.6) k/uL RBC (3.80-5.40) m/uL PT 13.0 H (9.0-12.0) sec APTT 21.5 L (22.0-30.0) sec Chloride 110 H (98-107) mmol/L Carbon Dioxide 19 L (22-30) mmol/L BUN 51 H (7-17) mg/dL Creatinine 1.20 H (0.52-1.04) mg/dL Glucose 107 H (74-99) mg/dL POC Glucose (mg/dL) (75-99) mg/dL Phosphorus (2.5-4.5) mg/dL Magnesium 2.5 H (1.6-2.3) mg/dL AST 142 H (14-36) U/L ALT 276 H (9-52) U/L Alkaline Phosphatase 141 H (38-126) U/L Total Protein 5.6 L (6.3-8.2) g/dL Albumin 3.2 L (3.5-5.0) g/dL Urine Appearance (Clear) Urine Protein (Negative) Ur Leukocyte Esterase (Negative) Urine WBC (0-5) /hpf Ur Squamous Epith Cells (0-4) /hpf Urine Bacteria (None) /hpf Urine Mucus (None) /hpf 01/24/17 01/24/17 01/25/17 Range/Units 17:20 21:20 04:59 WBC (3.8-10.6) k/uL RBC 3.78 L (3.80-5.40) m/uL PT (9.0-12.0) sec APTT (22.0-30.0) sec Chloride (98-107) mmol/L Carbon Dioxide (22-30) mmol/L BUN (7-17) mg/dL Creatinine (0.52-1.04) mg/dL Glucose (74-99) mg/dL POC Glucose (mg/dL) 106 H (75-99) mg/dL Phosphorus (2.5-4.5) mg/dL Magnesium (1.6-2.3) mg/dL AST (14-36) U/L ALT (9-52) U/L Alkaline Phosphatase (38-126) U/L Total Protein (6.3-8.2) g/dL Albumin (3.5-5.0) g/dL Urine Appearance Cloudy H (Clear) Urine Protein 1+ H (Negative) Ur Leukocyte Esterase Large H (Negative) Urine WBC 38 H (0-5) /hpf Ur Squamous Epith Cells 6 H (0-4) /hpf Urine Bacteria Occasional H (None) /hpf Urine Mucus Rare H (None) /hpf 01/25/17 Range/Units 04:59 WBC (3.8-10.6) k/uL RBC (3.80-5.40) m/uL PT (9.0-12.0) sec APTT (22.0-30.0) sec Chloride 116 H (98-107) mmol/L Carbon Dioxide 15 L (22-30) mmol/L BUN 50 H (7-17) mg/dL Creatinine 1.09 H (0.52-1.04) mg/dL Glucose (74-99) mg/dL POC Glucose (mg/dL) (75-99) mg/dL Phosphorus 4.9 H (2.5-4.5) mg/dL Magnesium (1.6-2.3) mg/dL AST (14-36) U/L ALT (9-52) U/L Alkaline Phosphatase (38-126) U/L Total Protein (6.3-8.2) g/dL Albumin (3.5-5.0) g/dL Urine Appearance (Clear) Urine Protein (Negative) Ur Leukocyte Esterase (Negative) Urine WBC (0-5) /hpf Ur Squamous Epith Cells (0-4) /hpf Urine Bacteria (None) /hpf Urine Mucus (None) /hpf Assessment and Plan Plan: Impression: 1 acute complete heart block, third-degree AV block, schedule to have permanent pacemaker implantation today in the next couple of hours. 2 suspect right lower lobe infiltrate, community-acquired pneumonia hence the patient will be started on Levaquin. 3 suspect significant component of COPD with mild exacerbation, patient is at least a [id number] smoker. [address] of the chest suggestive of right middle lobe subpleural nodule, small pleural effusion, and adrenal abnormality, malignancy would be considered in the differential, however I plan to address this on outpatient basis by possibly arranging for a PET scan and decide whether to proceed with CT-guided needle biopsy of the peripheral subpleural nodule in the right middle lobe area. 5 history of CVA and left-sided weakness, resolved. 6 history of hypothyroidism, patient is on replacement therapy. 7 history of previous [place], ST elevation myocardial infarction requiring stent placement few years ago. 8 weight loss, exact etiology is not clear at this point, however pulmonary malignancy would have to be considered in the differential. 9 acute kidney injury, possibly prerenal azotemia, patient was hydrated, and there was improvement in the renal profile, however the patient developed some component of mild interstitial edema has a gentle diuresis will be recommended again. Recommendation: Continue present treatment plan, cautious diuresis since the patient is developing worsening pulmonary edema based on the chest x-ray, patient will likely improve once the pacemaker is implanted. We'll continue to follow. Time with Patient: Less than 30
[2017-01-25] MEDS ORDERED: SODIUM CHLORIDE 0.9% 1,000 ML IV ONE (10:55)
[2017-01-25] MEDS ORDERED: LIDOCAINE 2% INJ 20 MG/ML SQ ONE (11:21)
[2017-01-25] MEDS ORDERED: IODIXANOL 320 MG/ML 100 ML IV ONE (11:45)
--- NOTE | 2017-01-25 11:54 | CONS ---
Mrs. Loaiza is an 81 year old female who was seen in the emergency room for cardiac evaluation. The patient's medical records reviewed. This patient had an episode of syncope about two weeks ago. Since then, she is feeling generally weak and tired and intermittent dizziness. The patient was evaluated with EKG and echocardiogram. Echocardiogram was overall normal left ventricular systolic function. The patient also had a CT scan of the chest done today. No significant abnormality was noted. The patient came to the emergency room with the possibility that she was dehydrated but her heart rate was noticed to be 30. Blood pressure was 148/50. The patient was in complete heart block with ventricular ( ) rhythm. This patient at present is comfortable. This patient has a known history of coronary artery disease with a prior history of anterior wall myocardial infarction. The patient had left main stenosis. The patient subsequently also had an episode of stroke. She has a history of COPD, hypertension and she is borderline diabetic. At present, the patient denies any shortness of breath, orthopnea or PND. Denies any chest pain. Past medical history includes a prior anterior wall myocardial infarction, history of stroke, COPD. The patient's home medications include: 1. Metoprolol 25 mg b.i.d. 2. Lisinopril 5 mg daily. 3. Synthroid 50 mcg daily. 4. Plavix 75 mg daily. 5. Lipitor 80 mg daily. 6. Baby aspirin once a day. PHYSICAL EXAMINATION: At present reveals an 81 year old female who does not appear to be in any acute distress. The patient's heart rate is 30. Blood pressure is 138/67 mmHg. Head and ENT examination is negative. Neck is supple. There is no increase in jugular venous pressure. both carotid pulses are felt. There is no bruit. Chest is symmetrical. Heart the PMI is not felt. First and second heart sounds are normal. Lungs are clinically clear to auscultation and percussion. Abdomen is soft. Liver and spleen is not enlarged. Bowel sounds are heard. Extremities peripheral pulsations are not well felt. The patient's initial troponin was 0.025. The patient's EKG shows complete heart block with ventricular ( ) rhythm and wide QRS complex. FINAL IMPRESSION: 1. This patient has evidence of complete heart block with wide QRS complex ventricular ( ) rhythm. This is secondary to third degree AV block. In view of the symptomatic AV block, the patient requires permanent pacemaker. I do not think the dose of Metoprolol is contributing to the patient's bradycardia. We will hold the metoprolol at present.\ 2. Status post coronary artery disease and the stent to the left main coronary artery. 3. History of stroke. RECOMMENDATIONS: I discussed with the patient as well as the son, regarding the pacemaker, I discussed with Dr. Pichardo and the pacemaker will be scheduled tomorrow. We will hydrate the patient with 75 mL per hour. Echo and Doppler studies will be obtained. MTDD
[2017-01-25] MEDS ORDERED: ONDANSETRON 4 MG/2 ML VIAL ONE (12:20)
[2017-01-25] MEDS ORDERED: ONDANSETRON 4 MG/2 ML VIAL IVP ONE (12:26)
[2017-01-25] MEDS ORDERED: ACETAMINOPHEN IV (For NPO) 1,000 MG in EMPTY BAG 1 BAG IVPB ONE (12:47)
--- NOTE | 2017-01-25 12:57 | P.PCN ---
Preoperative Diagnosis: Impression Symptomatic third degree heart block with heart rates ranging from 20-35 beats a minute/severe bradycardia, no reversible causes Procedure Transvenous temporary pacemaker implantation via the right femoral vein and its removal at the end of the procedure Transvenous temporary pacing procedure Indication for the procedure: Severe underlying bradycardia Patient was brought to the EP lab in a fasting state. Written informed consent was obtained prior to the procedure. The right groin was prepped and draped as a protocol. A 6-[place] sheath was placed in the right femoral vein. Via this, a temporary pacing catheter was placed in the right ventricle. Thresholds were interrogated. Temporary pacing was performed through the rest of the procedure. At the end of the entire procedure, the TVP was removed. The sheath was removed and hemostasis was assured. Patient tolerated the procedure well without any acute complications. Procedure performed Transvenous temporary pacing Procedure Successful dual-chamber pacemaker implantation left pectoral Plan Resume Toprol-XL, lisinopril aspirin and Plavix and atorvastatin Stop amlodipine No Lasix Postoperative Diagnosis: Procedure(s) Performed: Implants: Disposition: ICU Indications for Procedure: Operative Findings: Description of Procedure:
--- NOTE | 2017-01-25 13:36 | PCN ---
This is an 81 year old female who presented to the hospital with symptomatic third degree heart block with severe bradycardia between 20 to 35 beats a minute which obviously did not respond to discontinuation of low dose Toprol which she takes for ischemic cardiomyopathy and history of [place] status post stenting. She also did not respond to IV Dopamine yesterday and therefore, this morning, she was brought into the EP lab and first a temporary pacemaker was placed via the right femoral vein. Please see the dictation separately. Following that, the left pectoral area was prepped and draped as per protocol. 1% Lidocaine was used for local anesthesia. IV antibiotics were administered. A 4 cm incision was made in the deltopectoral groove about 1.5 cm medial to it. The incision was carried down to the level of the pectoralis muscle. A subfascial pocket was made. Hemostasis was assured. The left axillary vein was accessed. Axillary access was obtained and two leads were positioned in the right ( ). The atrial lead was a [employer] model #1944, 46 cm in length and serial number [id number]. This was a haresh lead positioned in the right atrial appendage. P-waves were 2.2 millivolts, pacing impedance was 450 ohms. Pacing threshold 0.5 volts at 0.5 milliseconds. The RV lead was positioned in the RV apex. Pacing impedance 730 ohms, pacing thresholds 0.5 volts at 0.5 milliseconds, 10 volt test was negative. Both leads were secured to the underlying pectoralis fascia using two non- absorbable sutures. Pocket was irrigated with antibiotic solution. Lead was connected to the generator ([employer] model #MC7273 serial number [id number]). The leads and the generator were then placed in the subfascial pocket and the wound was closed in three layers and dressed per protocol. RESULT: Successful dual chamber pacemaker implantation for symptomatic third degree heart block with hypoperfusion, low blood pressure and elevated liver enzymes. PLAN: 1. Follow liver enzymes. 2. Restart medications for CAD including aspirin and Plavix. Hold off on starting statins until LFTs are rechecked tomorrow. Restart Toprol XL and Lisinopril. Copy to Dara/Lelia at [facility]. [facility]
[2017-01-25] MEDS: ASPIRIN 81 MG CHEW PO SCH (13:37)
[2017-01-25] MEDS: PANTOPRAZOLE 40 MG TABLET PO SCH (13:37)
[2017-01-25] MEDS: CLOPIDOGREL 75 MG TAB PO SCH (13:37)
[2017-01-25] MEDS: METOPROLOL SUCCINATE (ER) 25 MG TAB.ER.24H PO SCH (13:37)
[2017-01-25] MEDS ORDERED: Magnesium Replacement Protocol 1 EACH MISC MISCELLANE PRN (15:02)
[2017-01-25] MEDS ORDERED: Potassium Replacement Protocol 1 EACH MISC MISCELLANE PRN (15:02)
--- NOTE | 2017-01-25 15:06 | P.HPIM ---
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 Patient is been having these symptoms on and off for a few weeks. She had extensive workup in the office recently including computed tomography scan of the chest abdomen and pelvis, and an echocardiogram. Patient was evaluated in the emergency room and was found to have evidence of third-degree AV block with heart rates in the 20s. She was admitted to the intensive care unit. Beta blockers were discontinued. Patient was evaluated by cardiology and underwent a successful placement of a pacemaker today early in the afternoon. Patient is doing fairly well right now. She is awake and alert. Family at bedside. She reported that her pain is well controlled. She also reports feeling hungry. Patient herself reported having problems with nausea and vomiting intermittently for the past few weeks. She also had weight loss that was unintentional of approximately 15 pounds. Recent computed tomography scan showed a 2 cm subpleural nodule in the right middle lobe as well as evidence of intestinal lymphadenopathy per verbal report. This was concerning for an underlying malignancy. Review of Systems Review of system: 14 points review of systems were obtained and were negative except to what were mentioned in the HPI. Past Medical History Past Medical History: Coronary Artery Disease (CAD), Chest Pain / Angina ( Patient had previous RI and stent placement.), COPD, CVA/TIA (Patient had previous CVA with left-sided hemiparesis recovered almost fully, uses a walker with wheels to ambulate.), Diabetes Mellitus, Hyperlipidemia, Liver Disease ( Abnormal liver enzymes felt to be most likely related to her recent dose of Lipitor which is presently on hold.), Myocardial Infarction (RI), Thyroid Disorder Additional Past Medical History / Comment(s): History of borderline diabetes, CVA, hypothyroidism and COPD. Patient noncompliant with medications. Last Myocardial Infarction Date:: 07/06/2015 History of Any Multi-Drug Resistant Organisms: None Reported Past Surgical History: Bowel Resection, Heart Catheterization With Stent Past Anesthesia/Blood Transfusion Reactions: No Reported Reaction Date of Last Stent Placement:: 2014 Past Psychological History: Unable to Obtain Additional Psychological History / Comment(s): per family Jolly "patient has bouts of paranoia" Parviz "she gets fixated on things & there is no changing her mind" Smoking Status: Former smoker - Past Family History Mother Family Medical History: Congestive Heart Failure (CHF) Medications and Allergies Home Medications Medication Instructions Recorded Confirmed Type Aspirin 81 mg PO DAILY 07/06/15 01/24/17 History Atorvastatin [Lipitor] 80 mg PO DAILY 10/10/16 01/24/17 History Clopidogrel [Plavix] 75 mg PO DAILY 10/10/16 01/24/17 History Ergocalciferol (Vitamin D2) 50,000 unit PO Q7D 10/10/16 01/24/17 History [Vitamin D2] Lisinopril [Zestril] 5 mg PO DAILY 10/10/16 01/24/17 History Metoprolol Succinate (ER) [Toprol 25 mg PO DAILY 10/10/16 01/24/17 History Xl] Levothyroxine Sodium [Synthroid] 50 mcg PO DAILY 01/24/17 01/24/17 History Allergies Allergy/AdvReac Type Severity Reaction Status Date / Time amoxicillin trihydrate Allergy Unknown Verified 01/24/17 14:53 [From Augmentin] potassium clavulanate Allergy Unknown Verified 01/24/17 14:52 [From Augmentin] Physical Exam Vitals: Vital Signs Temp Pulse Pulse Resp BP BP BP 01/25/17 14:00 79 14 141/78 01/25/17 13:45 83 14 156/98 01/25/17 13:30 81 16 156/98 01/25/17 13:28 81 14 156/98 01/25/17 10:30 28 L 14 117/43 01/25/17 10:15 27 L 12 116/52 01/25/17 10:00 27 L 18 140/49 01/25/17 09:45 28 L 19 142/49 01/25/17 09:30 31 L 31 H 146/48 01/25/17 09:15 31 L 18 158/43 01/25/17 09:00 31 L 19 142/68 07/08/17 08:45 32 L 20 145/58 01/25/17 08:30 31 L 21 159/69 01/25/17 08:15 31 L 17 169/43 01/25/17 08:00 98.2 F 39 L 20 148/59 01/25/17 07:45 57 L 19 118/50 01/25/17 07:30 26 L 25 L 16 78/50 78/42 01/25/17 07:20 26 L 70/34 01/25/17 07:15 26 L 20 80/48 01/25/17 07:10 25 L 72/42 01/25/17 07:00 26 L 20 148/45 01/25/17 06:30 35 L 15 129/52 01/25/17 06:00 26 L 18 80/32 01/25/17 05:30 24 L 20 81/42 01/25/17 05:00 26 L 20 102/49 01/25/17 04:30 25 L 20 129/63 01/25/17 04:00 97.8 F 26 L 20 160/114 01/25/17 03:30 27 L 22 176/57 01/25/17 03:00 27 L 18 173/78 01/25/17 02:30 27 L 20 123/49 01/25/17 02:00 27 L 16 147/42 01/25/17 01:30 27 L 14 139/50 01/25/17 01:00 27 L 18 132/60 01/25/17 00:30 27 L 20 149/57 01/25/17 00:00 97.8 F 28 L 20 117/59 01/24/17 23:35 27 L 18 149/54 01/24/17 23:30 27 L 12 149/54 01/24/17 23:00 27 L 14 132/51 01/24/17 22:30 28 L 11 L 155/50 01/24/17 22:00 28 L 15 131/53 01/24/17 21:30 28 L 18 134/46 01/24/17 21:00 30 L 16 118/41 01/24/17 20:30 30 L 18 171/64 01/24/17 20:00 98.0 F 30 L 18 01/24/17 19:30 29 L 16 175/63 01/24/17 19:00 27 L 15 194/83 01/24/17 18:50 29 L 39 H 193/61 01/24/17 18:40 30 L 9 L 193/61 01/24/17 18:30 30 L 11 L 01/24/17 18:20 30 L 14 182/79 01/24/17 18:10 30 L 8 L 182/79 01/24/17 18:00 30 L 11 L 182/79 01/24/17 17:50 30 L 24 131/84 01/24/17 17:40 31 L 33 H 131/84 01/24/17 17:30 30 L 18 131/84 01/24/17 17:20 31 L 01/24/17 17:18 47 L 01/24/17 17:05 97.1 F L 29 L 16 174/66 01/24/17 16:55 96.9 F L 30 L 14 182/79 01/24/17 16:11 29 L 16 148/67 01/24/17 15:15 29 L 16 161/73 01/24/17 15:06 29 L 16 148/60 01/24/17 15:00 34 L 22 170/50 Pulse Ox 01/25/17 14:00 92 L 01/25/17 13:45 96 01/25/17 13:30 95 01/25/17 13:28 94 L 01/25/17 10:30 93 L 01/25/17 10:15 93 L 01/25/17 10:00 95 01/25/17 09:45 94 L 01/25/17 09:30 88 L 01/25/17 09:15 93 L 01/25/17 09:00 92 L 01/25/17 08:45 92 L 01/25/17 08:30 90 L 01/25/17 08:15 98 01/25/17 08:00 94 L 01/25/17 07:45 95 01/25/17 07:30 92 L 01/25/17 07:20 01/25/17 07:15 96 01/25/17 07:10 01/25/17 07:00 98 01/25/17 06:30 94 L 01/25/17 06:00 96 01/25/17 05:30 96 01/25/17 05:00 95 01/25/17 04:30 97 01/25/17 04:00 96 01/25/17 03:30 98 01/25/17 03:00 93 L 01/25/17 02:30 95 01/25/17 02:00 96 01/25/17 01:30 96 01/25/17 01:00 97 01/25/17 00:30 95 01/25/17 00:00 95 01/24/17 23:35 97 01/24/17 23:30 96 01/24/17 23:00 97 01/24/17 22:30 98 01/24/17 22:00 97 01/24/17 21:30 97 01/24/17 21:00 98 01/24/17 20:30 95 01/24/17 20:00 98 01/24/17 19:30 99 01/24/17 19:00 98 01/24/17 18:50 94 L 01/24/17 18:40 87 L 01/24/17 18:30 98 01/24/17 18:20 97 01/24/17 18:10 95 01/24/17 18:00 98 01/24/17 17:50 97 01/24/17 17:40 97 01/24/17 17:30 97 01/24/17 17:20 98 01/24/17 17:18 01/24/17 17:05 96 01/24/17 16:55 97 01/24/17 16:11 96 01/24/17 15:15 96 01/24/17 15:06 96 01/24/17 15:00 99 Intake and Output 01/24/17 01/25/17 01/25/17 22:59 06:59 14:59 Intake Total 250 601.139 623.887 Output Total 50 225 Balance 200 376.139 623.887 Intake: IV 250 600 610 ACETAMINOPHEN IV (For NPO 100 ) 1,000 mg In Empty Bag 1 bag @ 400 mls/hr IVPB ONCE ONE Rx#:[id number] Sodium Chloride 0.9% 1, 250 400 210 000 ml @ 50 mls/hr IV . Q20H [facility] Rx#:[id number] Sodium Chloride 0.9% 500 200 ml @ 999 mls/hr IV .Q31M [facility] Rx#:[id number] Intake, IV Titration 1.139 13.887 Amount DOPamine DRIP 800 mg In 1.139 13.887 Dextrose/Water 1 500ml. bag @ 1 MCG/KG/MIN 2.07 mls/hr IV .Q24H [facility] Rx#: [id number] Output: Urine 50 225 Other: Voiding Method Bedpan Bedside Commode Bedpan Weight 52 kg 55.3 kg 55.3 kg Patient Weight 01/26/17 06:59 Weight 55.3 kg General: The patient is awake and alert, in no distress Eye: there is normal conjunctiva bilaterally. Neck: The neck is supple, there is no JVD. Cardiovascular: Normal S1-S2, no S3-S4, no murmurs. Respiratory: Lungs with mild end expiratory wheezing to anterior chest auscultation Gastrointestinal: Abdomen is soft, nontender Musculoskeletal: There is no pedal edema. Neurological:. Speech is normal. Skin: Skin is warm and dry Results CBC & Chem 7: 01/25/17 04:59 01/25/17 04:59 Labs: Abnormal Lab Results - Last 24 Hours (Table) 01/24/17 01/24/17 01/24/17 Range/Units 14:13 14:13 14:13 WBC 11.2 H (3.8-10.6) k/uL RBC (3.80-5.40) m/uL PT 13.0 H (9.0-12.0) sec APTT 21.5 L (22.0-30.0) sec Chloride 110 H (98-107) mmol/L Carbon Dioxide 19 L (22-30) mmol/L BUN 51 H (7-17) mg/dL Creatinine 1.20 H (0.52-1.04) mg/dL Glucose 107 H (74-99) mg/dL POC Glucose (mg/dL) (75-99) mg/dL Phosphorus (2.5-4.5) mg/dL Magnesium 2.5 H (1.6-2.3) mg/dL AST 142 H (14-36) U/L ALT 276 H (9-52) U/L Alkaline Phosphatase 141 H (38-126) U/L Total Protein 5.6 L (6.3-8.2) g/dL Albumin 3.2 L (3.5-5.0) g/dL Urine Appearance (Clear) Urine Protein (Negative) Ur Leukocyte Esterase (Negative) Urine WBC (0-5) /hpf Ur Squamous Epith Cells (0-4) /hpf Urine Bacteria (None) /hpf Urine Mucus (None) /hpf 01/24/17 01/24/17 01/25/17 Range/Units 17:20 21:20 04:59 WBC (3.8-10.6) k/uL RBC 3.78 L (3.80-5.40) m/uL PT (9.0-12.0) sec APTT (22.0-30.0) sec Chloride (98-107) mmol/L Carbon Dioxide (22-30) mmol/L BUN (7-17) mg/dL Creatinine (0.52-1.04) mg/dL Glucose (74-99) mg/dL POC Glucose (mg/dL) 106 H (75-99) mg/dL Phosphorus (2.5-4.5) mg/dL Magnesium (1.6-2.3) mg/dL AST (14-36) U/L ALT (9-52) U/L Alkaline Phosphatase (38-126) U/L Total Protein (6.3-8.2) g/dL Albumin (3.5-5.0) g/dL Urine Appearance Cloudy H (Clear) Urine Protein 1+ H (Negative) Ur Leukocyte Esterase Large H (Negative) Urine WBC 38 H (0-5) /hpf Ur Squamous Epith Cells 6 H (0-4) /hpf Urine Bacteria Occasional H (None) /hpf Urine Mucus Rare H (None) /hpf 01/25/17 Range/Units 04:59 WBC (3.8-10.6) k/uL RBC (3.80-5.40) m/uL PT (9.0-12.0) sec APTT (22.0-30.0) sec Chloride 116 H (98-107) mmol/L Carbon Dioxide 15 L (22-30) mmol/L BUN 50 H (7-17) mg/dL Creatinine 1.09 H (0.52-1.04) mg/dL Glucose (74-99) mg/dL POC Glucose (mg/dL) (75-99) mg/dL Phosphorus 4.9 H (2.5-4.5) mg/dL Magnesium (1.6-2.3) mg/dL AST (14-36) U/L ALT (9-52) U/L Alkaline Phosphatase (38-126) U/L Total Protein (6.3-8.2) g/dL Albumin (3.5-5.0) g/dL Urine Appearance (Clear) Urine Protein (Negative) Ur Leukocyte Esterase (Negative) Urine WBC (0-5) /hpf Ur Squamous Epith Cells (0-4) /hpf Urine Bacteria (None) /hpf Urine Mucus (None) /hpf Microbiology - Last 24 Hours (Table) 01/24/17 20:20 Gram Stain - Preliminary Sputum Sputum Culture - Preliminary 01/24/17 21:20 Urine Culture - Preliminary Urine,Clean Catch Thrombosis Risk Factor Assmnt - Choose All That Apply Any of the Below Risk Factors Present?: Yes Each Factor Represents 1 point: Abnormal pulmonary function (COPD) Other Risk Factors: No Each Risk Factor Represents 3 Points: Age 75 years or older Other congenital or acquired thrombophilia - If yes, enter type in comment: No Thrombosis Risk Factor Assessment Total Risk Factor Score: 4 Thrombosis Risk Factor Assessment Level: Moderate Risk Assessment and Plan Plan: 1. Third-degree heart block status post assess for dual-chamber pacemaker implantation to the left chest on 2. Suspected right lower lobe pneumonia: Community-acquired, currently receiving 4 doses of IV cefazolin post-pacemaker implantation. May consider switching antibiotic to Levaquin to finish 8 days course 3. Underlying COPD with mild exacerbation: Continue bronchodilators every 6 hours scheduled for now. May consider low-dose steroid if not improving tomorrow. 4. Transaminitis with elevated liver function tests, may be attributed to shock liver given episode of hypotension. Blood pressure better controlled now. We will repeat lab work in the morning. Continue to hold statin for now. 5. Recent abnormal CT of the chest concerning for a possible right middle lobe nodule: Seen and evaluated by pulmonology. Plan to follow up as an outpatient with possible PET scan for further evaluation 6. Known triple-vessel coronary artery disease noted on left heart catheterization in June 2015. Continue optimal medical management. Dual antiplatelet therapy with aspirin and Plavix. 7. 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 Hypothyroidism, maintained on Synthroid 9. Mild acute kidney injury most likely prerenal. today, I reviewed her medication list and lab work results. continue current regimen. Continue postoperative care. repeat lab work in the morning. current clinical condition discussed with her son, Dr. Loaiza, at the bedside. continue ICU care.
[2017-01-25] MEDS: IPRATROPIUM-ALBUTEROL 3 ML NEB INHALATION SCH ×2 (15:14→20:21)
[2017-01-25] MEDS: ceFAZolin 2 GM in SODIUM CHLORIDE 0.9% 100 ML IVPB SCH ×2 (15:56→21:24)
[2017-01-25] MEDS: LISINOPRIL 5 MG TAB PO SCH (17:46)
[2017-01-25] MEDS: ACETAMINOPHEN TAB 325 MG TAB PO PRN (20:36)
[2017-01-25] MEDS: HEPARIN SODIUM,PORCINE 5,000 UNIT/ML 1 ML VIAL SQ SCH (20:37)
[2017-01-25] MEDS ORDERED: ATORVASTATIN 80 MG TAB PO SCH (21:00)
[2017-01-26] MEDS: ceFAZolin 2 GM in SODIUM CHLORIDE 0.9% 100 ML IVPB SCH ×2 (05:20→09:40)
[2017-01-26 05:35] LABS: Basophils % (A) 0 %; CHCM 32.3; Eosinophils # (A) 0.2 k/uL (0-0.7); Eosinophils % (A) 1 %; HCT 35.6 % (34.0-46.0); HDW 2.39; HGB 11.8 gm/dL (11.4-16.0); Luc % (Auto) 2; Lymphocytes # (A) 1.8 k/uL (1.0-4.8); Lymphocytes % (A) 15 %; MCH 32.1 pg (25.0-35.0); MCHC 33.2 g/dL (31.0-37.0); MCV 96.7 fL (80.0-100.0); Mean Platelet Volume 8.6; Monocytes # (A) 0.7 k/uL (0-1.0); Monocytes % (A) 6 %; Neutrophils # (A) 8.8 k/uL (1.3-7.7); Neutrophils % (A) 76 %; RBC 3.68 m/uL (3.80-5.40); RDW 15.2 % (11.5-15.5); WBC 11.6 k/uL (3.8-10.6); WBC (Perox) 11.13
[2017-01-26 05:49] LABS: ALT 131 U/L (9-52); AST 52 U/L (14-36); Alkaline Phosphatase 119 U/L (38-126); Anion Gap 8 mmol/L; Blood Urea Nitrogen 43 mg/dL (7-17); Calcium 8.4 mg/dL (8.4-10.2); Carbon Dioxide 17 mmol/L (22-30); Chloride 115 mmol/L (98-107); Glucose 86 mg/dL (74-99); Magnesium 2.3 mg/dL (1.6-2.3); Non-African American GFR(MDRD) 53 (>60 ml/min/1.73 sqM); Phosphorous 4.2 mg/dL (2.5-4.5); Potassium 4.6 mmol/L (3.5-5.1); Sodium 140 mmol/L (137-145); Total Bilirubin 0.2 mg/dL (0.2-1.3); Total Protein 4.9 g/dL (6.3-8.2)
[2017-01-26] MEDS: LEVOTHYROXINE 50 MCG TAB PO SCH (06:29)
[2017-01-26] MEDS: ACETAMINOPHEN TAB 325 MG TAB PO PRN ×2 (06:29→14:32)
--- NOTE | 2017-01-26 07:10 | XR ---
EXAMINATION TYPE: XR chest 1V portable DATE OF EXAM: 01/26/2017 Comparison: 01/25/2017 Clinical History: 81-year-old female Lead placement check Findings: New left anterior chest wall pacemaker generator with right atrial and right ventricular leads. Heart is upper limits of normal in size. Diffuse interstitial and vascular prominence shows slight im provement. Residual small effusions and patchy bibasilar opacities, particularly on the left stable t o minimally improved. Impression: 1. New left-sided 2-lead pacemaker generator. 2. CHF with pulmonary vascular congestion/mild interstitial edema, stable to minimally improved. 3. Trace to small effusions with adjacent atelectasis and/or consolidation persist.
[2017-01-26] MEDS: METOPROLOL SUCCINATE (ER) 25 MG TAB.ER.24H PO SCH (07:49)
[2017-01-26] MEDS: HEPARIN SODIUM,PORCINE 5,000 UNIT/ML 1 ML VIAL SQ SCH ×2 (07:49→22:43)
[2017-01-26] MEDS: CLOPIDOGREL 75 MG TAB PO SCH (07:50)
[2017-01-26] MEDS: PANTOPRAZOLE 40 MG TABLET PO SCH (07:50)
[2017-01-26] MEDS: ASPIRIN 81 MG CHEW PO SCH (07:50)
[2017-01-26] MEDS: IPRATROPIUM-ALBUTEROL 3 ML NEB INHALATION SCH ×4 (08:20→20:07)
[2017-01-26] MEDS ORDERED: ATORVASTATIN 80 MG TAB PO SCH (09:00)
--- NOTE | 2017-01-26 09:13 | P.PN ---
Subjective Principal diagnosis: Complete heart block This is an 81-year-old female who was the mother of Dr. Loaiza, with history of multiple medical problems including previous CVA, previous ST elevation myocardial infarction and previous stent placement, history of COPD, 40-pack- year smoker, history of hypertension, hyperlipidemia, and history of borderline diabetes as well as hypothyroidism. Patient presented to the ER with 2 weeks history of feeling weak, tired, has been losing weight almost 20 pounds in the last few months, feeling lightheaded intermittently, and she had significant cold intolerance. Upon evaluation in the ER, patient was found to be in third- degree AV block. Patient was seen by cardiology, beta blockers/metoprolol placed on hold, and if she remains in third-degree AV block, permanent pacemaker implantation is planned to be done in a.m. Patient was admitted to the intensive care unit, and I was asked to see her on consultation. Recently, according to her son ,, patient had extensive workup including CT of abdomen chest and pelvis, and she was found to have a 2.0 cm subpleural nodule in the right middle lobe area, she was also noted to have right hilar lymph node measuring 1.5 cm, small right pleural effusion was noted, and she was also noted to have an adrenal nodule about 1.5 cm in size. Of course there is some concern about possible malignancy knowing in fact that the patient has been a heavy smoker over the years, and she has been losing weight significantly over the last couple of months. No repeat CT of the chest was done, however her chest x-ray showed patchy perihilar right basilar infiltrate, no significant pleural effusion was noted, and there was slight prominence of the interstitium. Patient also describes multiple GI symptoms including intermittent episodes of nausea vomiting and diarrhea, but no melena, no hematemesis, no dysuria, no frequency, no urgency. Patient had a recent lab tests showing that she was admitted to hypothyroid with TSH about 12. Considering her third-degree AV block, and considering her recent abnormal CT of the chest which was done at [facility], considering her weight loss , and considering the patient was admitted to the intensive care unit, I was asked to see her on consultation. Patient was reevaluated today on 01/25/2017, patient is now on dopamine at 3 mcg/ kg/m for low blood pressure, Norvasc was placed on hold, blood pressure is now about 140 systolic, and 80 diastolic. Patient is experiencing lightheadedness, nausea and vomiting, no chest pain, no fever, no chills, and she is scheduled to have permanent pacemaker placement this morning. Continues to be in third- degree AV block. Chest x-ray is showing mild congestive heart failure changes hence I recommended one dose of Lasix to be given. CBC is relatively normal, electrolytes are abnormal with bicarb level of 15, BUN is 50 creatinine is 1.09. Chest x-ray is showing increased interstitial opacities and trace of right pleural effusion, I believe this is mostly a picture of mild congestive heart failure and pulmonary edema. Underlying pneumonia is not entirely ruled out especially in the right lower lobe. Reevaluated today on 01/26/2017, patient is significantly improved. She is status post pacemaker implantation, and she is doing great. All her symptoms of shortness of breath, nausea vomiting lightheadedness have completely resolved. Chest x-ray is showing definite improvement in her congestive heart failure. There is however trace of small effusions noted and atelectasis. CBC is relatively normal basic metabolic profile is also relatively normal BUN is down to 43 creatinine is down to 1.0. Liver enzymes are significantly improved. Overall, the patient has made a significant improvement since admission. Today actually is her best day. Hence I felt the patient could be considered for transfer to [facility] instead of being in the ICU. Objective - Vital Signs Vital signs: Vital Signs Temp 98.3 F 01/26/17 04:00 Pulse 68 01/26/17 08:35 Resp 15 01/26/17 07:00 BP 83/45 01/26/17 07:00 Pulse Ox 98 01/26/17 07:00 Intake & Output 01/25/17 01/26/17 01/26/17 18:59 06:59 18:59 Intake Total 5893.159 7626 20 Output Total 725 550 300 Balance 288.887 860 -280 Weight 55.3 kg Intake: IV 750 300 20 ACETAMINOPHEN IV (For NPO 100 ) 1,000 mg In Empty Bag 1 bag @ 400 mls/hr IVPB ONCE ONE Rx#:[id number] Sodium Chloride 0.9% 1, 250 100 20 000 ml @ 50 mls/hr IV . Q20H [facility] Rx#:[id number] ceFAZolin 2 gm In Sodium 100 200 Chloride 0.9% 100 ml @ 100 mls/hr IVPB Q6H [facility] Rx#:[id number] Intake, IV Titration 13.887 Amount DOPamine DRIP 800 mg In 13.887 Dextrose/Water 1 500ml. bag @ 1 MCG/KG/MIN 2.07 mls/hr IV .Q24H [facility] Rx#: [id number] Oral 250 1110 Output: Urine 725 550 300 Other: Voiding Method Bedpan Bedside Commode Bedpan # Voids 0 # Bowel Movements 0 - Exam GENERAL: Patient is well-developed and well-nourished. Patient is nontoxic and well- hydrated not in any form of respiratory distress. ENT: Neck is soft and supple. No neck masses, no JVD, no cervical lymphadenopathy. EYES: The sclera were anicteric and conjunctiva were pink and moist. Extraocular movements were intact PULMONARY: Unlabored respirations. Crackles and rhonchi at the bases bilaterally CARDIOVASCULAR: Paced rhythm, otherwise unremarkable. ABDOMEN: Soft and nontender with normal bowel sounds. No palpable organomegaly was noted. There is no palpable pulsatile mass. SKIN: Skin is clear with no lesions or rashes and otherwise unremarkable. NEUROLOGIC: No gross focal neurologic deficit MUSCULOSKELETAL: Normal extremities with adequate strength LYMPHATICS: No significant lymphadenopathy is noted PSYCHIATRIC: Normal psychiatric evaluation. Normal interpersonal interactions appears functionally intact in deals appropriately with others. No signs of depression. No signs of anxiety. - Labs CBC & Chem 7: 01/26/17 04:58 01/26/17 04:58 Labs: Abnormal Lab Results - Last 24 Hours (Table) 01/26/17 01/26/17 Range/Units 04:58 04:58 WBC 11.6 H (3.8-10.6) k/uL RBC 3.68 L (3.80-5.40) m/uL Neutrophils # 8.8 H (1.3-7.7) k/uL Chloride 115 H (98-107) mmol/L Carbon Dioxide 17 L (22-30) mmol/L BUN 43 H (7-17) mg/dL AST 52 H (14-36) U/L ALT 131 H (9-52) U/L Total Protein 4.9 L (6.3-8.2) g/dL Albumin 2.5 L (3.5-5.0) g/dL Microbiology - Last 24 Hours (Table) 01/24/17 19:04 Blood Culture - Preliminary Blood No Growth after 24 hours 01/24/17 20:20 Gram Stain - Preliminary Sputum Sputum Culture - Preliminary 01/24/17 21:20 Urine Culture - Preliminary Urine,Clean Catch Assessment and Plan Plan: Impression: 1 acute complete heart block, third-degree AV block, status post permanent pacemaker implantation on 01/25/2017 2 suspect right lower lobe infiltrate, however considering the chest x-ray improvement, I believe this was related to fluid rather than pneumonic process. And that is improving since the pacemaker was implanted. 3 suspect significant component of COPD with mild exacerbation, patient is at least a [id number] smoker. [address] of the chest suggestive of right middle lobe subpleural nodule, small pleural effusion, and adrenal abnormality, malignancy would be considered in the differential, however I plan to address this on outpatient basis by possibly arranging for a PET scan and decide whether to proceed with CT-guided needle biopsy of the peripheral subpleural nodule in the right middle lobe area. 5 history of CVA and left-sided weakness, resolved. 6 history of hypothyroidism, patient is on replacement therapy. 7 history of previous [place], ST elevation myocardial infarction requiring stent placement few years ago. 8 weight loss, exact etiology is not clear at this point, however pulmonary malignancy would have to be considered in the differential. 9 acute kidney injury, possibly prerenal azotemia, improving steadily hence this is a picture of cardiorenal syndrome most likely. Recommendation: Continue present treatment plan, significant improvement noted since the pacemaker implantation, most of her symptoms have completely resolved , hence I will recommend transfer out of the ICU to [facility], and possibly discharged home within the next 24 hours. Time with Patient: Less than 30
[2017-01-26] MEDS: FUROSEMIDE 10 MG/ML 2 ML VIAL IV STA ×2 (09:38→10:42)
[2017-01-26] MEDS: ATORVASTATIN 80 MG TAB PO SCH (09:38)
[2017-01-26] MEDS: LISINOPRIL 5 MG TAB PO SCH (12:17)
--- NOTE | 2017-01-26 15:07 | PN ---
Mrs. Loaiza is an 81-year-old female with known history of coronary artery disease who presented with syncopal episode and was noted to have evidence of complete heart block. She is scheduled to undergo permanent pacemaker implantation today. She was feeling short of breath and nauseated earlier with vomiting and requiring IV fluids and subsequently Dopamine to maintain her blood pressure. She is feeling better at the time of my evaluation. She denies any further nausea or vomiting. She is on a very low dose of dopamine and continues to be in complete heart block with ventricular rate in the 20s. She continues to be at this time on IV dopamine, Protonix, cephazolin, PHYSICAL EXAMINATION: Blood pressure 142/60 with heart rate in the 20s and 30s. LUNGS: A few crackles at the bases. HEART: Bradycardiac ,S1, S2 with systolic murmur. No rub. ABDOMEN: Soft, nontender. EXTREMITIES: No significant edema. LAB DATA: Chest x-ray revealed mild fluid overload. BUN and creatinine 15 and 1.09. Potassium 4.8, hemoglobin of 11.8. IMPRESSION: 1. Complete heart block with slow ventricular response. It appears that this event was documented a few days ago. 2. History of coronary artery disease, status post percutaneous revascularization. 3. History of hypertension. 4. History of hyperlipidemia. RECOMMENDATIONS: From the cardiac standpoint, will proceed with permanent pacemaker implantation. That will be done by Dr. Pichardo today. Subsequent to that her regimen can be initiated and if needed intravenous diuresis can be given. I believe that a lot of her blood pressure instability as well as her chest x-ray changes are related to the severe bradycardia. KALIED
--- NOTE | 2017-01-26 18:03 | P.PN ---
Subjective Patient is doing well today. Heart rhythm is paced. No events overnight. Objective - Vital Signs Vital signs: Vital Signs Temp 97.9 F 01/26/17 16:00 Pulse 64 01/26/17 11:35 Resp 18 01/26/17 16:00 BP 93/49 01/26/17 16:00 Pulse Ox 95 01/26/17 16:00 Intake & Output 01/25/17 01/26/17 01/26/17 18:59 06:59 18:59 Intake Total 7799.688 3851 240 Output Total 725 550 300 Balance 288.887 860 -60 Weight 55.3 kg Intake: IV 750 300 120 ACETAMINOPHEN IV (For NPO 100 ) 1,000 mg In Empty Bag 1 bag @ 400 mls/hr IVPB ONCE ONE Rx#:[id number] Sodium Chloride 0.9% 1, 250 100 20 000 ml @ 50 mls/hr IV . Q20H [facility] Rx#:[id number] ceFAZolin 2 gm In Sodium 100 200 100 Chloride 0.9% 100 ml @ 100 mls/hr IVPB Q6H [facility] Rx#:[id number] Intake, IV Titration 13.887 Amount DOPamine DRIP 800 mg In 13.887 Dextrose/Water 1 500ml. bag @ 1 MCG/KG/MIN 2.07 mls/hr IV .Q24H [facility] Rx#: [id number] Oral 250 1110 120 Output: Urine 725 550 300 Other: Voiding Method Bedpan Bedside Commode Bedside Commode Bedpan # Voids 0 # Bowel Movements 0 1 - Exam General: The patient is awake and alert, in no distress Eye: there is normal conjunctiva bilaterally. Neck: The neck is supple, there is no JVD. Cardiovascular: Normal S1-S2, no S3-S4, no murmurs. Respiratory: Lungs clear to auscultation bilaterally Gastrointestinal: Abdomen is soft, nontender Musculoskeletal: There is no pedal edema. Neurological:. Speech is normal. Skin: Skin is warm and dry - Labs CBC & Chem 7: 01/26/17 04:58 01/26/17 04:58 Labs: Abnormal Lab Results - Last 24 Hours (Table) 01/26/17 01/26/17 Range/Units 04:58 04:58 WBC 11.6 H (3.8-10.6) k/uL RBC 3.68 L (3.80-5.40) m/uL Neutrophils # 8.8 H (1.3-7.7) k/uL Chloride 115 H (98-107) mmol/L Carbon Dioxide 17 L (22-30) mmol/L BUN 43 H (7-17) mg/dL AST 52 H (14-36) U/L ALT 131 H (9-52) U/L Total Protein 4.9 L (6.3-8.2) g/dL Albumin 2.5 L (3.5-5.0) g/dL Microbiology - Last 24 Hours (Table) 01/24/17 21:20 Urine Culture - Final Urine,Clean Catch 01/24/17 19:04 Blood Culture - Preliminary Blood No Growth after 24 hours Assessment and Plan Plan: 1. Third-degree heart block status post assess for dual-chamber pacemaker implantation to the left chest on 2. Suspected right lower lobe pneumonia: Community-acquired, currently receiving 4 doses of IV cefazolin post-pacemaker implantation. May consider switching antibiotic to Levaquin to finish 8 days course 3. Underlying COPD with mild exacerbation: Continue bronchodilators every 6 hours scheduled for now. May consider low-dose steroid if not improving tomorrow. 4. Transaminitis with elevated liver function tests, now improving. may be attributed to shock liver given episode of hypotension. We will repeat lab work in the morning. Continue to hold statin for now. 5. Recent abnormal CT of the chest concerning for a possible right middle lobe nodule: Seen and evaluated by pulmonology. Plan to follow up as an outpatient with possible PET scan for further evaluation 6. Known triple-vessel coronary artery disease noted on left heart catheterization in June 2015. Continue optimal medical management. Dual antiplatelet therapy with aspirin and Plavix. 7. 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 Hypothyroidism, maintained on Synthroid 9. Mild acute kidney injury most likely prerenal. today, I reviewed her medication list and lab work results. continue current regimen. Repeat lab work in the morning. current clinical condition discussed with her son, Josse, at the bedside. continue ICU care.
[2017-01-27] MEDS: PANTOPRAZOLE 40 MG TABLET PO SCH (06:57)
[2017-01-27] MEDS: LEVOTHYROXINE 50 MCG TAB PO SCH (06:57)
[2017-01-27 07:05] LABS: Basophils % (A) 0 %; CHCM 31.9; Eosinophils # (A) 0.4 k/uL (0-0.7); Eosinophils % (A) 3 %; HCT 36.1 % (34.0-46.0); HDW 2.54; HGB 11.8 gm/dL (11.4-16.0); Luc # (Auto) 0.19; Luc % (Auto) 2; Lymphocytes # (A) 1.5 k/uL (1.0-4.8); Lymphocytes % (A) 13 %; MCH 31.9 pg (25.0-35.0); MCHC 32.6 g/dL (31.0-37.0); MCV 98.1 fL (80.0-100.0); Macrocytosis Slight; Mean Platelet Volume 8.7; Monocytes # (A) 0.7 k/uL (0-1.0); Monocytes % (A) 6 %; Neutrophils # (A) 8.9 k/uL (1.3-7.7); Neutrophils % (A) 76 %; RBC 3.68 m/uL (3.80-5.40); RDW 15.6 % (11.5-15.5); WBC 11.7 k/uL (3.8-10.6); WBC (Perox) 11.96
[2017-01-27 07:18] LABS: ALT 53 U/L (9-52); AST 35 U/L (14-36); Alkaline Phosphatase 123 U/L (38-126); Anion Gap 8 mmol/L; Blood Urea Nitrogen 25 mg/dL (7-17); Calcium 8.3 mg/dL (8.4-10.2); Carbon Dioxide 18 mmol/L (22-30); Chloride 116 mmol/L (98-107); Glucose 95 mg/dL (74-99); Non-African American GFR(MDRD) >60 (>60 ml/min/1.73 sqM); Phosphorous 2.7 mg/dL (2.5-4.5); Potassium 4.3 mmol/L (3.5-5.1); Sodium 142 mmol/L (137-145); Total Bilirubin 0.6 mg/dL (0.2-1.3); Total Protein 5.2 g/dL (6.3-8.2)
[2017-01-27] MEDS: IPRATROPIUM-ALBUTEROL 3 ML NEB INHALATION SCH ×4 (07:34→19:50)
[2017-01-27] MEDS: CLOPIDOGREL 75 MG TAB PO SCH (08:04)
[2017-01-27] MEDS: ATORVASTATIN 80 MG TAB PO SCH ×2 (08:04→14:38)
[2017-01-27] MEDS: ASPIRIN 81 MG CHEW PO SCH (08:04)
[2017-01-27] MEDS: HEPARIN SODIUM,PORCINE 5,000 UNIT/ML 1 ML VIAL SQ SCH ×2 (08:04→21:02)
[2017-01-27] MEDS: METOPROLOL SUCCINATE (ER) 25 MG TAB.ER.24H PO SCH (08:05)
[2017-01-27] MEDS: ACETAMINOPHEN TAB 325 MG TAB PO PRN ×3 (08:15→23:30)
[2017-01-27] MEDS ORDERED: traMADol 50 MG TAB PO PRN (10:20)
--- NOTE | 2017-01-27 10:21 | P.PN ---
Subjective This is a very pleasant 81-year-old female, mother of my associated , that is very well-known to me with complex past medical history noted below significant for coronary artery disease with known triple-vessel disease managed medically, history of right frontal and parietal infarct with chronic left-sided hemiparesis, underlying systolic heart failure, essential hypertension, underlying COPD with history of [id number] cigarette smoke, hypothyroidism, and prediabetes who presented to the hospital with generalized weakness and fatigue. Patient presented to the emergency room and was found to be in third-degree AV block with a heart rate in the 20s. She was initially admitted to the ICU. Beta stella was discontinued. Patient evaluated by cardiology and underwent pacemaker placement on 01/25/2017. Since then she's been in a paced rhythm heart rate stable. However, she is still complaining of feeling weak and tired. Also complaining of cough that is productive at times. She is wheezy today. She was too tired to take her breathing treatments this morning. She is on 4 L nasal cannula satting at 96%. Patient reports not being on oxygen at home. She denies any chest pain. Denies any significant shortness of breath. Denies any nausea or vomiting. Reports having bowel movements. Denies any difficulty with urinating. Reports a good appetite. Patient lives at [facility]. She thinks she may need more help and may require rehab placement. Also complains of pain at pacemaker site Objective - Vital Signs Vital signs: Vital Signs Temp 98.2 F 01/27/17 08:00 Pulse 85 01/27/17 08:00 Resp 18 01/27/17 08:00 BP 97/58 01/27/17 08:00 Pulse Ox 96 01/27/17 08:00 Intake & Output 01/26/17 01/27/17 01/27/17 18:59 06:59 18:59 Intake Total 240 180 Output Total 300 300 Balance -60 -300 180 Weight 56.2 kg Intake: IV 120 Sodium Chloride 0.9% 1, 20 000 ml @ 50 mls/hr IV . Q20H [facility] Rx#:[id number] ceFAZolin 2 gm In Sodium 100 Chloride 0.9% 100 ml @ 100 mls/hr IVPB Q6H [facility] Rx#:[id number] Oral 120 180 Output: Urine 300 300 Other: Voiding Method Bedside Commode Toilet # Voids 2 # Bowel Movements 1 1 - Exam Head normocephalic Neck supple Lungs wheezing bilaterally Heart regular rate and rhythm S1-S2, no rub or gallop area pacemaker site clean dry and intact Abdomen is soft nontender nondistended positive bowel sounds no hepatosplenomegaly Extremities no edema Neuro alert and orientated to 3 - Labs CBC & Chem 7: 01/27/17 06:27 01/27/17 06:27 Labs: Abnormal Lab Results - Last 24 Hours (Table) 01/27/17 01/27/17 Range/Units 06:27 06:27 WBC 11.7 H (3.8-10.6) k/uL RBC 3.68 L (3.80-5.40) m/uL RDW 15.6 H (11.5-15.5) % Neutrophils # 8.9 H (1.3-7.7) k/uL Chloride 116 H (98-107) mmol/L Carbon Dioxide 18 L (22-30) mmol/L BUN 25 H (7-17) mg/dL Calcium 8.3 L (8.4-10.2) mg/dL ALT 53 H (9-52) U/L Total Protein 5.2 L (6.3-8.2) g/dL Albumin 2.6 L (3.5-5.0) g/dL Microbiology - Last 24 Hours (Table) 01/24/17 20:20 Gram Stain - Final Sputum Sputum Culture - Final 01/24/17 19:04 Blood Culture - Preliminary Blood No Growth after 48 hours 01/24/17 21:20 Urine Culture - Final Urine,Clean Catch Assessment and Plan Plan: 1. Third-degree heart block status post assess for dual-chamber pacemaker implantation to the left chest on 2. Suspected right lower lobe pneumonia: Community-acquired, currently receiving 4 doses of IV cefazolin post-pacemaker implantation. Patient completed ceftezole and treatment. We'll start Levaquin 500 mg by mouth daily. Await sputum culture 3. Underlying COPD with mild exacerbation: Continue bronchodilators every 6 hours scheduled for now. 4. Transaminitis with elevated liver function tests, may be attributed to shock liver given episode of hypotension. Blood pressure better controlled now. We will repeat lab work in the morning. Continue to hold statin for now. Liver enzyme showing improvement 5. Recent abnormal CT of the chest concerning for a possible right middle lobe nodule: Seen and evaluated by pulmonology. Plan to follow up as an outpatient with possible PET scan for further evaluation 6. Known triple-vessel coronary artery disease noted on left heart catheterization in June 2015. Continue optimal medical management. Dual antiplatelet therapy with aspirin and Plavix. 7. 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 Hypothyroidism, maintained on Synthroid 9. Mild acute kidney injury most likely prerenal. Improved with IV fluids 10. Fluid overload. Patient did require dose of IV Lasix yesterday. Chest x- ray had shown congestive heart failure stable minimally improved. 11. PT consult patient may require ECF placement at time of discharge 12. Pain management: Patient's complaining of pain at pacemaker site. No improvement with Tylenol. Add Ultram 50 mg 3 times a day as needed for pain I performed an examination of the patient and discussed their management with the physician Production Sound Mixer. I have reviewed the Physician Production Sound Mixer's notes and agree with the documented findings and plan of care
[2017-01-27] MEDS ORDERED: LEVOFLOXACIN 500 MG TAB PO SCH (11:00)
--- NOTE | 2017-01-27 13:12 | P.PN ---
Subjective Principal diagnosis: Complete heart block This is an 81-year-old female who follows regularly with Dr. Pichardo in the office. She does have a known history of coronary artery disease with prior PCI. Patient was found to be in complete heart block and underwent implantation of a dual chamber permanent pacemaker by Dr. Pichardo. She was seen and examined this morning, overall doing well. Continued to have oxygen on , satting a proximal a 92-94%. We will discontinue her oxygen and check her room air O2 sat. Overall patient should be able to be discharged home today. We will make her a follow-up appointment to see Dr. Pichardo in the office on Friday as well as a device clinic on that same day. Objective - Vital Signs Vital signs: Vital Signs Temp 98.2 F 01/27/17 08:00 Pulse 64 01/27/17 12:00 Resp 18 01/27/17 12:00 BP 103/54 01/27/17 12:00 Pulse Ox 96 01/27/17 12:00 Intake & Output 01/26/17 01/27/17 01/27/17 18:59 06:59 18:59 Intake Total 240 180 Output Total 300 300 Balance -60 -300 180 Weight 56.2 kg Intake: IV 120 Sodium Chloride 0.9% 1, 20 000 ml @ 50 mls/hr IV . Q20H [facility] Rx#:[id number] ceFAZolin 2 gm In Sodium 100 Chloride 0.9% 100 ml @ 100 mls/hr IVPB Q6H [facility] Rx#:[id number] Oral 120 180 Output: Urine 300 300 Other: Voiding Method Bedside Commode Toilet # Voids 2 # Bowel Movements 1 1 - Exam PHYSICAL EXAMINATION: HEENT: Head is atraumatic, normocephalic. Pupils equal, round. Neck is supple. There is no elevated jugular venous pressure. HEART EXAMINATION: S1 and S2 systolic murmur is heard. CHEST EXAMINATION: Lungs reveal crackles to bilateral bases. ABDOMEN: Soft, nontender. Bowel sounds are heard. No organomegaly noted. EXTREMITIES: 2+ peripheral pulses with no evidence of peripheral edema and no calf tenderness noted. NEUROLOGIC patient is awake, alert and oriented -3. . - Labs CBC & Chem 7: 01/27/17 06:27 01/27/17 06:27 Labs: Abnormal Lab Results - Last 24 Hours (Table) 01/27/17 01/27/17 Range/Units 06:27 06:27 WBC 11.7 H (3.8-10.6) k/uL RBC 3.68 L (3.80-5.40) m/uL RDW 15.6 H (11.5-15.5) % Neutrophils # 8.9 H (1.3-7.7) k/uL Chloride 116 H (98-107) mmol/L Carbon Dioxide 18 L (22-30) mmol/L BUN 25 H (7-17) mg/dL Calcium 8.3 L (8.4-10.2) mg/dL ALT 53 H (9-52) U/L Total Protein 5.2 L (6.3-8.2) g/dL Albumin 2.6 L (3.5-5.0) g/dL Microbiology - Last 24 Hours (Table) 01/24/17 20:20 Gram Stain - Final Sputum Sputum Culture - Final 01/24/17 19:04 Blood Culture - Preliminary Blood No Growth after 48 hours 01/24/17 21:20 Urine Culture - Final Urine,Clean Catch Assessment and Plan (1) Pacemaker Status: Acute (2) Third degree heart block Status: Acute (3) Cerebrovascular accident (CVA) Status: Acute (4) Diabetes Status: Acute (5) Hyperlipemia Status: Acute (6) Hypothyroid Status: Acute (7) Presence of stent in LAD coronary artery Status: Acute Plan: From cardiology's perspective, we will check a room air O2 sat. Patient may be able to be discharged home today, a follow-up appointment will be made with Dr. Pichardo and the device clinic on Friday. DNP note has been reviewed, I agree with a documented findings and plan of care. Patient was seen and examined.
[2017-01-27 14:14] LABS: Cholesterol 100 mg/dL (<200); HDL Cholesterol 33 mg/dL (40-60); Triglycerides 90 mg/dL (<150)
--- NOTE | 2017-01-27 15:59 | PN ---
Mrs. Loaiza is an 81 year old female with a history of coronary artery disease who presented with complete heart block, underwent permanent pacemaker implantation yesterday. She is feeling better today. She has some headache and some soreness over the site of hte pacemaker but she has no significant dyspnea. She denies any dizziness or palpitation. She denies any nausea. Her nausea and vomiting that she had yesterday resolved. She continues to be on aspirin once a day, Lisinopril 5 mg daily, Plavix 75 mg daily, Toprol 25 mg daily. PHYSICAL EXAMINATION: Blood pressure is running in the high 90s. with a heart rate in the 60s and 70s. Lungs with a few crackles at the bases. Site of the base are clean. Heart regular rate and rhythm, S1, S2, no S3 with systolic murmur. Abdomen soft, nontender. Extremities no edema. Lab data: BUN and creatinine 43 and 1.0. Her potassium 4.6. Hemoglobin 11.8. White blood cell count 11.6. IMPRESSION: 1. Status post permanent pacemaker implantation done by Dr. Pichardo for persistent complete heart block. 2. History of coronary artery disease. 3. Hypotension. The patient has a prior history of hypertension. 4. History of hyperlipidemia. RECOMMENDATIONS: I will stop the Zestril at this time time. She will receive one dose of IV Lasix. She should be able to be transferred to telemetry floor. Her level of activity can be increased. Depending on her progress, further recommendation will be made. KALIED
--- NOTE | 2017-01-27 16:07 | P.CONS ---
History of Present Illness - Chief Complaint Medical debility - History of Present Illness Had the op to see patient for inpatient rehab consultation with regard to medical debility. She is known to me. She was admitted to [facility] January 24 with redness of breath, COPD exacerbation, right pleural effusion and third- degree AV block. CT demonstrated a right middle lobe nodule. Chest x-rays followed for CHF and small effusions. Seen by Dr. Copeland for same. Seen by Dr. Pichardo who did successfully implanted pacemaker. PT reports supervision for functional ability and gait 80 feet with roller walker. OT reports mental assistance for upper and lower dressing, bathing, toileting and functional mobility. Previous functional history as elicited from patient: 81-year-old right-handed white female who lives in a first-floor apartment alone. Describes independent with own cooking, laundry,'s standing shower, gait with [address]. History of smoking but doesn't smoke currently. Denies alcohol. Review of Systems Review of systems: ENT: Denies sneezes or discharge. Eyes: Denies discharge or photophobia. Cardiac: Denies chest pain or palpitation. Pulmonary: Mild shortness of breath. Breast: Denies discharge or lumps. Gastrointestinal: Denies nausea, emesis, constipation, diarrhea. Genitourinary: Denies discharge or frequency. Musculoskeletal: Denies muscle or bone aches. Neurologic: Mild weakness. Endocrine: Denies shakes or sweats. Oncology: Denies cancers. Dermatologic: Denies rash, itching, pruritus. ALLERGY/immunology: Denies sneezes, rashes. Past Medical History Past Medical History: Coronary Artery Disease (CAD), Chest Pain / Angina ( Patient had previous NH and stent placement.), COPD, CVA/TIA (Patient had previous CVA with left-sided hemiparesis recovered almost fully, uses a walker with wheels to ambulate.), Diabetes Mellitus, Hyperlipidemia, Liver Disease ( Abnormal liver enzymes felt to be most likely related to her recent dose of Lipitor which is presently on hold.), Myocardial Infarction (NH), Thyroid Disorder Additional Past Medical History / Comment(s): History of borderline diabetes, CVA, hypothyroidism and COPD. Patient noncompliant with medications. Last Myocardial Infarction Date:: 07/06/2015 History of Any Multi-Drug Resistant Organisms: None Reported Past Surgical History: Bowel Resection, Heart Catheterization With Stent Past Anesthesia/Blood Transfusion Reactions: No Reported Reaction Date of Last Stent Placement:: 2014 Past Psychological History: Unable to Obtain Additional Psychological History / Comment(s): per family Jolly "patient has bouts of paranoia" Parviz "she gets fixated on things & there is no changing her mind" Smoking Status: Former smoker - Past Family History Mother Family Medical History: Congestive Heart Failure (CHF) Medications and Allergies Home Medications Medication Instructions Recorded Confirmed Type Aspirin 81 mg PO DAILY 07/06/15 01/24/17 History Atorvastatin [Lipitor] 80 mg PO DAILY 10/10/16 01/24/17 History Clopidogrel [Plavix] 75 mg PO DAILY 10/10/16 01/24/17 History Ergocalciferol (Vitamin D2) 50,000 unit PO Q7D 10/10/16 01/24/17 History [Vitamin D2] Lisinopril [Zestril] 5 mg PO DAILY 10/10/16 01/24/17 History Metoprolol Succinate (ER) [Toprol 25 mg PO DAILY 10/10/16 01/24/17 History Xl] Levothyroxine Sodium [Synthroid] 50 mcg PO DAILY 01/24/17 01/24/17 History Allergies Allergy/AdvReac Type Severity Reaction Status Date / Time amoxicillin trihydrate Allergy Unknown Verified 01/24/17 14:53 [From Augmentin] potassium clavulanate Allergy Unknown Verified 01/24/17 14:52 [From Augmentin] Physical Exam Vitals: Vital Signs Temp Pulse Pulse Pulse Pulse Pulse Resp 01/27/17 13:26 01/27/17 12:00 64 19 01/27/17 11:37 78 01/27/17 11:26 80 01/27/17 11:16 83 80 81 01/27/17 08:00 98.2 F 85 18 01/27/17 04:00 98.2 F 93 20 01/27/17 00:00 97.9 F 85 20 01/26/17 20:00 97.4 F L 93 22 BP Pulse Ox Pulse Ox Pulse Ox Pulse Ox 01/27/17 13:26 95 01/27/17 12:00 103/54 96 01/27/17 11:37 01/27/17 11:26 01/27/17 11:16 88 L 96 94 L 01/27/17 08:00 97/58 96 01/27/17 04:00 119/71 95 01/27/17 00:00 92/53 92 L 01/26/17 20:00 101/63 92 L Intake and Output 01/27/17 01/27/17 01/27/17 06:59 14:59 22:59 Intake Total 417 Output Total 300 Balance -300 417 Intake: Oral 417 Output: Urine 300 Other: Voiding Method Toilet # Voids 2 # Bowel Movements 1 Weight 56.2 kg Skin: Atrophic, intact. General: Overweight and comfortable appearance. Head: Normocephalic, atraumatic. Eyes: Symmetric. Pupils equal round. Ears: Symmetric. Hearing within normal limits. Mouth: Clear. Neck: Supple. Carotid without bruit. Cardiac: Regular rate and rhythm. Lungs: Clear anteriorly and posteriorly. Abdomen: Soft active nontender overweight. Extremities: Normal tone. Neurological: Mental status: Alert, cooperative, pleasant. Cranial nerves: Symmetric facial tone and trapezius. Motor: Normal strength and isolation arms and both legs. Does not move left arm is had procedure yesterday. Sensation: Intact throughout. DTRs: Symmetric and equal throughout. Mobility: Not sit or stand as patient was anxious about left arm. Results CBC & Chem 7: 01/27/17 06:27 01/27/17 06:27 Labs: Abnormal Lab Results - Last 24 Hours (Table) 01/27/17 01/27/17 01/27/17 Range/Units 06:27 06:27 06:27 WBC 11.7 H (3.8-10.6) k/uL RBC 3.68 L (3.80-5.40) m/uL RDW 15.6 H (11.5-15.5) % Neutrophils # 8.9 H (1.3-7.7) k/uL Chloride 116 H (98-107) mmol/L Carbon Dioxide 18 L (22-30) mmol/L BUN 25 H (7-17) mg/dL Calcium 8.3 L (8.4-10.2) mg/dL ALT 53 H (9-52) U/L Total Protein 5.2 L (6.3-8.2) g/dL Albumin 2.6 L (3.5-5.0) g/dL HDL Cholesterol 33 L (40-60) mg/dL Microbiology - Last 24 Hours (Table) 01/24/17 20:20 Gram Stain - Final Sputum Sputum Culture - Final 01/24/17 19:04 Blood Culture - Preliminary Blood No Growth after 48 hours Chest x-ray: report reviewed (Old for CHF and small effusions.) Assessment and Plan (1) Third degree heart block Status: Acute Plan: Duncan: 1. Medical debility. 2. Third degree AV block now requiring pacemaker. 3. CHF with small effusions. 4. COPD. 5. History of stroke. 6. Coronary disease with history of NH. 7. Diabetes. 8. Hyperlipidemia. comments and plan: At this time PT and OT are ongoing. Safety concerns noted by OT. PT reports supervision. We'll follow therapy to determine if PT documents minimal physical assistance need for functional mobility as well.
--- NOTE | 2017-01-27 17:48 | P.PCN ---
Preoperative Diagnosis: Patient underwent EP procedure under conscious sedation/moderate sedation, monitoring of the level of consciousness and physiologic parameters including but not limited to vital signs and oxygenation. Patient tolerated the procedure well without any acute complications. Start time: 11:21 AM Stop time: 12:38 PM Postoperative Diagnosis: Procedure(s) Performed: Implants: Indications for Procedure: Operative Findings: Description of Procedure:
[2017-01-28] MEDS: LEVOTHYROXINE 50 MCG TAB PO SCH (06:28)
[2017-01-28] MEDS: PANTOPRAZOLE 40 MG TABLET PO SCH (06:28)
[2017-01-28 06:43] LABS: Basophils % (A) 0 %; CH 30.4; CHCM 30.4; Eosinophils # (A) 0.5 k/uL (0-0.7); Eosinophils % (A) 5 %; HCT 37.9 % (34.0-46.0); Hypochromasia Moderate; Luc # (Auto) 0.22; Luc % (Auto) 2; Lymphocytes # (A) 1.9 k/uL (1.0-4.8); Lymphocytes % (A) 19 %; MCHC 31.8 g/dL (31.0-37.0); MCV 100.7 fL (80.0-100.0); Macrocytosis Slight; Mean Platelet Volume 8.3; Monocytes # (A) 0.6 k/uL (0-1.0); Monocytes % (A) 6 %; Neutrophils # (A) 6.5 k/uL (1.3-7.7); Neutrophils % (A) 67 %; RBC 3.76 m/uL (3.80-5.40); RDW 15.5 % (11.5-15.5); WBC 9.7 k/uL (3.8-10.6); WBC (Perox) 10.25
[2017-01-28 07:00] LABS: ALT 45 U/L (9-52); AST 28 U/L (14-36); Alkaline Phosphatase 110 U/L (38-126); Anion Gap 6 mmol/L; Blood Urea Nitrogen 19 mg/dL (7-17); Calcium 8.6 mg/dL (8.4-10.2); Carbon Dioxide 23 mmol/L (22-30); Chloride 111 mmol/L (98-107); Glucose 80 mg/dL (74-99); Non-African American GFR(MDRD) >60 (>60 ml/min/1.73 sqM); Potassium 4.6 mmol/L (3.5-5.1); Sodium 140 mmol/L (137-145); Total Bilirubin 0.4 mg/dL (0.2-1.3); Total Protein 4.9 g/dL (6.3-8.2)
[2017-01-28] MEDS: METOPROLOL SUCCINATE (ER) 25 MG TAB.ER.24H PO SCH (07:42)
[2017-01-28] MEDS: HEPARIN SODIUM,PORCINE 5,000 UNIT/ML 1 ML VIAL SQ SCH ×2 (07:42→21:57)
[2017-01-28] MEDS: ASPIRIN 81 MG CHEW PO SCH (07:43)
[2017-01-28] MEDS: CLOPIDOGREL 75 MG TAB PO SCH (07:43)
[2017-01-28] MEDS: IPRATROPIUM-ALBUTEROL 3 ML NEB INHALATION SCH ×4 (08:21→20:15)
--- NOTE | 2017-01-28 09:38 | PN ---
This is an 81 year old NO CODE patient. She has shown significant improvement. She is status pacemaker implantation. She has some mild shortness of breath. Denies any nausea, vomiting, lightheadedness or chest pain. Chest x- ray showing improving. Small effusions and atelectasis at the bases. Overall though has made significant improvement in the last 24 to 48 hours. The patient was considered stable for transfer to [facility] instead of being in the ICU. She is doing well on [facility]. Currently vital signs are stable. Temperature 98.2. Heart rate 80. Respiratory rate 18. Blood pressure 97/58. Mean 71. A 4 L saturation 96%. Appears in no acute distress. HEENT: Grossly unremarkable. Mucous membranes are moist. No oral lesions. Neck is supple. Full range of motion. No adenopathy or thyromegaly. Cardiovascular examination reveals regular rate and rhythm. S1, S2 normal. Lungs reveal mostly clear breath sounds with a few scattered rhonchi. Abdomen soft. Bowel sounds are heard. There is no masses or tenderness. Extremities are intact. No cyanosis, clubbing or edema. Skin without rash. Neurologic examination is nonfocal. ASSESSMENT: 1. Acute complete heart block, status post permanent pacemaker implantation on January 25. 2. Fluid overload, resolved. 3. Chronic obstructive pulmonary disease, stable. 4. Abnormal CT scan of the chest suggestive of right middle lobe subpleural nodule small pleural effusion and adrenal abnormality. The patient will need outpatient workup including a PET scan. 5. History of cerebrovascular accident with left sided weakness. 6. History of hypothyroidism. 7. Previous myocardial infarction. 8. Acute kidney injury. 9. Anorexia, cachexia. PLAN: We will continue to follow. No additional recommendations are made. The patient is doing relatively well. Recent transfer out of the ICU. Doing well on the floor. No additional recommendations are made. MTDD
[2017-01-28 10:07] VITALS: BMI 24.5
[2017-01-28] MEDS ORDERED: LEVOFLOXACIN 250 MG TAB PO SCH (12:00)
--- NOTE | 2017-01-28 14:40 | P.DS ---
Providers Date of admission: 01/24/17 16:16 Expected date of discharge: 01/28/17 Attending physician: Ever Riojas Consults: 01/24/17 16:16 Consult Physician Urgent Consulting Provider: [facility] Consult Reason/Comments: Third-degree heart block Do you want consulting provider notified?: Yes Consult Physician Urgent Consulting Provider: German Orozco Consult Reason/Comments: Critical care management Do you want consulting provider notified?: Yes 01/27/17 13:57 Consult Physician Routine Consulting Provider: aDmaso Anthony Consult Reason/Comments: possible inpatient rehab Do you want consulting provider notified?: Yes Primary care physician: [facility] Course: Diagnoses on discharge: 1. Third-degree heart block status post dual-chamber pacemaker implantation to the left chest on 01/25/2017 2. Suspected right lower lobe pneumonia: Community-acquired, currently receiving 4 doses of IV cefazolin post-pacemaker implantation. Patient completed ceftezole and treatment. We'll start Levaquin 250 mg by mouth daily. sputum culture reveals normal respiratory laina. 3. Underlying COPD with mild exacerbation: Continue bronchodilators every 6 hours scheduled for now. Patient has evidence of chronic respiratory failure and will require home oxygen at the time of discharge. 4. Transaminitis with elevated liver function tests, may be attributed to shock liver given episode of hypotension. Resolved, normal liver function tests at the time of discharge. 5. Recent abnormal CT of the chest concerning for a possible right middle lobe nodule: Seen and evaluated by pulmonology. Plan to follow up as an outpatient with possible PET scan for further evaluation 6. Known triple-vessel coronary artery disease noted on left heart catheterization in June 2015. Continue optimal medical management. Dual antiplatelet therapy with aspirin and Plavix. 7. 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 Hypothyroidism, maintained on Synthroid 9. Mild acute kidney injury most likely prerenal. Improved with IV fluids 10. Fluid overload. Patient did require dose of IV Lasix. Chest x-ray had shown congestive heart failure stable improved. 11. PT consult patient may require ECF placement at time of discharge 12. Pain management: Patient's complaining of pain at pacemaker site. No improvement with Tylenol. Add Ultram 50 mg 3 times a day as needed for pain. Hospital course: Patient is a very pleasant 81-year-old female, mother of my , that is very well-known to me with complex past medical history noted below significant for coronary artery disease with known triple-vessel disease managed medically, history of right frontal and parietal infarct with chronic left-sided hemiparesis, underlying systolic heart failure, essential hypertension, underlying COPD with history of [id number] cigarette smoke, hypothyroidism, and prediabetes who presented to the hospital with generalized weakness and fatigue. Patient presented to the emergency room and was found to be in third-degree AV block with a heart rate in the 20s. She was initially admitted to the ICU. Beta stella was discontinued. Patient evaluated by cardiology and underwent pacemaker placement on 01/25/2017. Since then she's been in a paced rhythm heart rate stable. She was complaining of shrtness of breath and cough that is productive at times. Patient reports not being on oxygen at home. She denies any chest pain. Chest X ray revealed evidence of bibasilar infiltrates. She was started on Levaquin and Duoneb updrafts. Patient required oxygen therapy. She improved gradually, she was transferred to [facility] on 2016. Plan - Discharge Summary New Discharge Prescriptions: New Acetaminophen Tab [Tylenol] 650 mg PO Q6HR PRN tab PRN Reason: Mild Pain Ipratropium-Albuterol Nebulize [Duoneb 0.5 mg-3 mg/3 ml Soln] 3 ml INHALATION RT-QID neb Levofloxacin [Levaquin] 250 mg PO Q24H tab Pantoprazole [Protonix] 40 mg PO AC-BRKFST tab traMADol HCl [Ultram] 50 mg PO TID PRN tab PRN Reason: MODERATE Pain Continue Aspirin 81 mg PO DAILY Nitroglycerin Sl Tabs [Nitrostat] 0.4 mg SUBLINGUAL Q5M PRN #0 tab PRN Reason: Chest Pain Metoprolol Succinate (ER) [Toprol XL] 25 mg PO DAILY Lisinopril [Zestril] 5 mg PO DAILY Ergocalciferol (Vitamin D2) [Vitamin D2] 50,000 unit PO Q7D Clopidogrel [Plavix] 75 mg PO DAILY Atorvastatin [Lipitor] 80 mg PO DAILY Levothyroxine Sodium [Synthroid] 50 mcg PO DAILY Discharge Medication List Aspirin 81 mg PO DAILY 12/17/15 [History] Nitroglycerin Sl Tabs [Nitrostat] 0.4 mg SUBLINGUAL Q5M PRN #0 tab 07/12/15 [Rx] Atorvastatin [Lipitor] 80 mg PO DAILY 10/10/16 [History] Clopidogrel [Plavix] 75 mg PO DAILY 10/10/16 [History] Ergocalciferol (Vitamin D2) [Vitamin D2] 50,000 unit PO Q7D 10/10/16 [History] Lisinopril [Zestril] 5 mg PO DAILY 10/10/16 [History] Metoprolol Succinate (ER) [Toprol XL] 25 mg PO DAILY 10/10/16 [History] Levothyroxine Sodium [Synthroid] 50 mcg PO DAILY 01/24/17 [History] Acetaminophen Tab [Tylenol] 650 mg PO Q6HR PRN tab 01/28/17 [Rx] Ipratropium-Albuterol Nebulize [Duoneb 0.5 mg-3 mg/3 ml Soln] 3 ml INHALATION RT -QID neb 01/28/17 [Rx] Levofloxacin [Levaquin] 250 mg PO Q24H tab 01/28/17 [Rx] Pantoprazole [Protonix] 40 mg PO AC-BRKFST tab 01/28/17 [Rx] traMADol HCl [Ultram] 50 mg PO TID PRN tab 01/28/17 [Rx] Follow up Appointment(s)/Referral(s): Bill Pichardo MD [STAFF PHYSICIAN] - 01/31/17 Jolly Loaiza DO [Primary Care Provider] - 1-2 days
--- NOTE | 2017-01-28 17:38 | PN ---
This patient is an 81-year-old female who is NO CODE. She is doing better. She is status post pacemaker insertion for complete heart block. She also has a history of fluid overload, which is improved, COPD, which is stable, and an abnormal CT scan of the chest suggestive of a right middle lobe subpleural nodule, which will need to be followed up. The patient is currently being worked up and will be scheduled for an outpatient PET scan. She also has a history of previous CVA, hypothyroidism, myocardial infarction, acute kidney injury and anorexia/cachexia. She is doing well, though, feeling better. No issues or complaints. No shortness of breath. No chest pain or chest discomfort. Chest x-ray is certainly improved. Current vital signs are stable. Temperature is 96.8, heart rate 83, respiratory rate 20. Blood pressure is 133/75, mean 94. Two-liter saturation is 98%. Appears in no acute distress. HEENT examination is grossly unremarkable. Mucous membranes are moist. No oral lesions. NECK: Supple. Full range of motion. No adenopathy or thyromegaly. Cardiovascular examination reveals regular rhythm and rate. S1, S2 normal. No S3 , S4 or murmur. Lungs reveal relatively clear breath sounds. No wheezes or rhonchi. No crackles. ABDOMEN: Soft. Bowel sounds are heard. Extremities are intact. No cyanosis, clubbing or edema. Labs are reviewed. White count 9.7. Hemoglobin and hematocrit were stable and normal. Platelet count normal. Sodium, potassium normal. Chloride is 111, CO2 23. Anion gap is normal. BUN and creatinine were 19 and 0.6, improved from 50 and 1.09. The rest of the labs look okay. Microbiology, including blood, sputum and urine, are all negative thus far. Medications are reviewed. No recent x-ray to report. ASSESSMENT: 1. Acute complete heart block, status post permanent pacemaker insertion on January 25. 2. Fluid overload, resolved. 3. Chronic obstructive pulmonary disease, stable. 4. Abnormal CT scan showing a right middle lobe subpleural nodule and small pleural effusion and adrenal abnormality, to be followed. 5. History of cerebrovascular accident with left-sided weakness. 6. History of hypothyroidism. 7. Previous myocardial infarction. 8. Acute kidney injury, improved. PLAN: We will continue to follow. Medications are reviewed. Everything seems to be appropriate. No additional recommendations are made. MTDD
[2017-01-28] MEDS: ACETAMINOPHEN TAB 325 MG TAB PO PRN (22:04)
--- NOTE | 2017-01-28 22:17 | PN ---
Mrs. Loaiza remains in a paced rhythm. She is comfortable. Site is clean and dry. Vital signs are stable. S1, S2 heard normally. Lungs are clear. Abdomen and lower extremity exam unchanged. Patient is able to walk with the help of a walker and is ambulating in the hallways without symptoms. She is going to be discharged with rehab help and will see Dr. Gavino Ojeda in the office next week. Will continue same medications for now. Pacemaker is functioning well. MTDD
[2017-01-29 06:16] LABS: Basophils # (A) 0.1 k/uL (0-0.2); Basophils % (A) 0 %; CH 30.9; CHCM 32.3; Eosinophils # (A) 0.6 k/uL (0-0.7); Eosinophils % (A) 5 %; HCT 39.9 % (34.0-46.0); HDW 2.73; Luc # (Auto) 0.31; Luc % (Auto) 3; Lymphocytes # (A) 2.2 k/uL (1.0-4.8); Lymphocytes % (A) 20 %; MCH 31.5 pg (25.0-35.0); MCHC 32.7 g/dL (31.0-37.0); MCV 96.4 fL (80.0-100.0); Mean Platelet Volume 8.2; Monocytes # (A) 0.5 k/uL (0-1.0); Monocytes % (A) 5 %; Neutrophils # (A) 7.5 k/uL (1.3-7.7); Neutrophils % (A) 67 %; RBC 4.14 m/uL (3.80-5.40); RDW 15.7 % (11.5-15.5); WBC 11.2 k/uL (3.8-10.6); WBC (Perox) 11.71
[2017-01-29 06:49] LABS: ALT 41 U/L (9-52); AST 24 U/L (14-36); Alkaline Phosphatase 107 U/L (38-126); Anion Gap 7 mmol/L; Blood Urea Nitrogen 19 mg/dL (7-17); Carbon Dioxide 24 mmol/L (22-30); Chloride 111 mmol/L (98-107); Glucose 77 mg/dL (74-99); Non-African American GFR(MDRD) >60 (>60 ml/min/1.73 sqM); Potassium 4.8 mmol/L (3.5-5.1); Sodium 142 mmol/L (137-145); Total Bilirubin 0.3 mg/dL (0.2-1.3); Total Protein 5.3 g/dL (6.3-8.2)
[2017-01-29] MEDS: LEVOTHYROXINE 50 MCG TAB PO SCH (06:53)
[2017-01-29] MEDS: PANTOPRAZOLE 40 MG TABLET PO SCH (06:53)
[2017-01-29] MEDS: IPRATROPIUM-ALBUTEROL 3 ML NEB INHALATION SCH (08:01)
[2017-01-29] MEDS: CLOPIDOGREL 75 MG TAB PO SCH (08:29)
[2017-01-29] MEDS: METOPROLOL SUCCINATE (ER) 25 MG TAB.ER.24H PO SCH (08:29)
[2017-01-29] MEDS: ASPIRIN 81 MG CHEW PO SCH (08:29)
[2017-01-29] MEDS ORDERED: DOCUSATE 100 MG CAP PO PRN (08:29)
[2017-01-29] MEDS: HEPARIN SODIUM,PORCINE 5,000 UNIT/ML 1 ML VIAL SQ SCH (08:30)
[2017-01-29 09:23] VITALS: BP 132/84; PULSE 81; RESP 18; TEMP 97.3
== END 2017-01-29 10:48 | DRG 242 ==
LOC: EC 13:24 → 6ICU 16:16 → 6SEL 01-26 11:56
PROVIDERS: ADMIT Internal Medicine; ATTEND Internal Medicine
PROC: 02HK3JZ Insertion of Pacemaker Lead into Right Ventricle, Percutaneous Approach (ICD-10-PCS; principal; 2017-01-25 10:23)
PROC: 0JH606Z Insertion of Pacemaker, Dual Chamber into Chest Subcutaneous Tissue and Fascia, Open Approach (ICD-10-PCS; principal; 2017-01-25 10:23)
PROC: 02H63JZ Insertion of Pacemaker Lead into Right Atrium, Percutaneous Approach (ICD-10-PCS; principal; 2017-01-25 10:23)
PROC: 4A0234Z Measurement of Cardiac Electrical Activity, Percutaneous Approach (ICD-10-PCS; 2017-01-27)
PROC: 4A023FZ Measurement of Cardiac Rhythm, Percutaneous Approach (ICD-10-PCS; 2017-01-27)
DX: I44.2 Atrioventricular block, complete (principal); J18.9 Pneumonia, unspecified organism; N17.9 Acute kidney failure, unspecified; I11.0 Hypertensive heart disease with heart failure; R64 Cachexia; J96.10 Chronic respiratory failure, unspecified whether with hypoxia or hypercapnia; J44.0 Chronic obstructive pulmonary disease with (acute) lower respiratory infection; I50.22 Chronic systolic (congestive) heart failure; I69.354 Hemiplegia and hemiparesis following cerebral infarction affecting left non-dominant side; J44.1 Chronic obstructive pulmonary disease with (acute) exacerbation; E11.9 Type 2 diabetes mellitus without complications; E86.0 Dehydration; E03.9 Hypothyroidism, unspecified; E78.5 Hyperlipidemia, unspecified; F17.210 Nicotine dependence, cigarettes, uncomplicated; I25.5 Ischemic cardiomyopathy; I25.10 Atherosclerotic heart disease of native coronary artery without angina pectoris; I25.2 Old myocardial infarction; Z79.02 Long term (current) use of antithrombotics/antiplatelets; Z79.82 Long term (current) use of aspirin; Z79.899 Other long term (current) drug therapy; Z82.49 Family history of ischemic heart disease and other diseases of the circulatory system; Z82.5 Family history of asthma and other chronic lower respiratory diseases; Z91.14 Patient's other noncompliance with medication regimen; Z91.19 Patient's noncompliance with other medical treatment and regimen; Z95.5 Presence of coronary angioplasty implant and graft; Z88.1 Allergy status to other antibiotic agents
CPT/HCPCS: 33208; 36415; 71010; 71020; 80048; 80053; 80061; 81001; 82550; 82553; 83605; 83735; 84100; 84484; 85025; 85610; 85730; 87040; 87070; 87086; 87205; 93005; 93306; 94640; 96360; 96361; 99291

== ENCOUNTER 2018-10-04 11:21 | Emergency (ER) | payer MEDICARE, BC ==
--- NOTE | 2018-10-04 11:34 | ED ---
URI HPI - General Chief Complaint: Dental/Oral Stated Complaint: Blood in mouth Time Seen by Provider: 10/04/18 11:31 Source: patient, RN notes reviewed, old records reviewed Mode of arrival: ambulatory Limitations: no limitations - History of Present Illness Initial Comments: This is an 82-year-old the ER for evaluation. Patient is-year-old female with history of heart disease on Xarelto. Patient has no recent travel history or sick contacts. No fevers. No significant shortness of breath. No current chest pain. Patient has had this cough is occasionally have blood and blood tinged for 5 days now. It has been episodic, sometimes there is no vision. Patient is no acute distress no lightheadedness or dizziness - Related Data Home Medications Medication Instructions Recorded Confirmed Aspirin 81 mg PO DAILY 07/06/15 01/24/17 Atorvastatin [Lipitor] 80 mg PO DAILY 10/10/16 01/24/17 Clopidogrel [Plavix] 75 mg PO DAILY 10/10/16 01/24/17 Ergocalciferol (Vitamin D2) 50,000 unit PO Q7D 10/10/16 01/24/17 [Vitamin D2] Lisinopril [Zestril] 5 mg PO DAILY 10/10/16 01/24/17 Metoprolol Succinate (ER) [Toprol 25 mg PO DAILY 10/10/16 01/24/17 XL] Levothyroxine Sodium [Synthroid] 50 mcg PO DAILY 01/24/17 01/24/17 Previous Rx's Medication Instructions Recorded Nitroglycerin Sl Tabs [Nitrostat] 0.4 mg SUBLINGUAL Q5M PRN #0 tab 07/12/15 Acetaminophen Tab [Tylenol] 650 mg PO Q6HR PRN tab 01/28/17 Ipratropium-Albuterol Nebulize 3 ml INHALATION RT-QID neb 01/28/17 [Duoneb 0.5 mg-3 mg/3 ml Soln] Levofloxacin [Levaquin] 250 mg PO Q24H tab 01/28/17 Pantoprazole [Protonix] 40 mg PO AC-BRKFST tab 01/28/17 traMADol HCl [Ultram] 50 mg PO TID PRN tab 01/28/17 Allergies Allergy/AdvReac Type Severity Reaction Status Date / Time amoxicillin trihydrate Allergy Unknown Verified 01/24/17 14:53 [From Augmentin] potassium clavulanate Allergy Unknown Verified 01/24/17 14:52 [From Augmentin] Review of Systems ROS Statement: Those systems with pertinent positive or pertinent negative responses have been documented in the HPI. ROS Other: All systems not noted in ROS Statement are negative. Past Medical History Past Medical History: Coronary Artery Disease (CAD), Chest Pain / Angina, COPD, CVA/TIA, Diabetes Mellitus, Hyperlipidemia, Liver Disease, Myocardial Infarction (ME), Thyroid Disorder Additional Past Medical History / Comment(s): History of borderline diabetes, CVA, hypothyroidism and COPD. Patient noncompliant with medications. Last Myocardial Infarction Date:: 07/06/2015 History of Any Multi-Drug Resistant Organisms: None Reported Past Surgical History: Bowel Resection, Heart Catheterization With Stent Past Anesthesia/Blood Transfusion Reactions: No Reported Reaction Date of Last Stent Placement:: 2014 Past Psychological History: Unable to Obtain Smoking Status: Former smoker - Past Family History Mother Family Medical History: Congestive Heart Failure (CHF) General Exam Limitations: no limitations General appearance: alert, in no apparent distress Head exam: Present: atraumatic, normocephalic, normal inspection Eye exam: Present: normal appearance, PERRL, EOMI. Absent: scleral icterus, conjunctival injection, periorbital swelling ENT exam: Present: normal exam, mucous membranes moist Neck exam: Present: normal inspection. Absent: tenderness, meningismus, lymphadenopathy Respiratory exam: Present: normal lung sounds bilaterally. Absent: respiratory distress, wheezes, rales, rhonchi, stridor Cardiovascular Exam: Present: regular rate, normal rhythm, normal heart sounds. Absent: systolic murmur, diastolic murmur, rubs, gallop, clicks GI/Abdominal exam: Present: soft, normal bowel sounds. Absent: distended, tenderness, guarding, rebound, rigid Extremities exam: Present: normal inspection, full ROM, normal capillary refill. Absent: tenderness, pedal edema, joint swelling, calf tenderness Back exam: Present: normal inspection Neurological exam: Present: alert, oriented X3, CN II-XII intact Psychiatric exam: Present: normal affect, normal mood Skin exam: Present: warm, dry, intact, normal color. Absent: rash Course Vital Signs 10/04/18 10/04/18 10/04/18 11:25 12:57 13:01 Temperature 97.8 F 96.8 F L 98.0 F Pulse Rate 70 72 Respiratory 18 16 Rate Blood Pressure 112/67 106/52 O2 Sat by Pulse 97 97 Oximetry Medical Decision Making - Medical Decision Making 82 female the ER for evaluation of coughing up blood. Getting up blood. Patient's normal chest x-ray, in no acute distress on Xarelto encouraged to stop the bleeding seems to be discharged - Radiology Data Radiology results: report reviewed (Chest x-rays negative for acute disease), image reviewed Disposition Clinical Impression: Hemoptysis Disposition: HOME SELF-CARE Condition: Good Instructions (If sedation given, give patient instructions): Hemoptysis (ED) Is patient prescribed a controlled substance at d/c from ED?: No Referrals: Heidi Kyle MD [Primary Care Provider] - 1-2 days
--- NOTE | 2018-10-04 12:35 | XR ---
EXAMINATION TYPE: XR chest 2V DATE OF EXAM: 10/04/2018 COMPARISON: Prior chest x-ray 01/26/2017 HISTORY: Chest x-ray 01/26/2017 TECHNIQUE: Frontal and lateral views of the chest are obtained. FINDINGS: Heart size is stable. Interstitium is increased. Central vascularity mildly prominent. No pneumothorax or pleural effusion. Pacemaker is stable. Aorta is dense. Prominent lung volumes compati ble with underlying COPD. IMPRESSION: Correlate for congestive heart failure, interstitial edema.
[2018-10-04 12:59] VITALS: BP 106/52; PULSE 72; RESP 16
[2018-10-04 13:02] VITALS: TEMP 98
== END 2018-10-04 13:01 | disposition home or self-care (01) ==
LOC: EC 11:21
DX: R04.2 Hemoptysis (principal); I51.9 Heart disease, unspecified; I25.10 Atherosclerotic heart disease of native coronary artery without angina pectoris; E78.5 Hyperlipidemia, unspecified; I25.2 Old myocardial infarction; E03.9 Hypothyroidism, unspecified; Z86.73 Personal history of transient ischemic attack (TIA), and cerebral infarction without residual deficits; Z95.5 Presence of coronary angioplasty implant and graft; Z87.891 Personal history of nicotine dependence; Z79.82 Long term (current) use of aspirin; Z79.02 Long term (current) use of antithrombotics/antiplatelets; Z79.890 Hormone replacement therapy; Z79.899 Other long term (current) drug therapy; Z88.0 Allergy status to penicillin
CPT/HCPCS: 71046; 99283

== ENCOUNTER → 2018-10-08 | Outpatient (CLI) | payer MEDICARE, BC | END | disposition home or self-care (01) | LOC: LABWHC1 12:13 | PROVIDERS: ATTEND Internal Medicine | DX: R04.2 Hemoptysis (principal) | CPT/HCPCS: 36415; 82565; 84520 ==

== ENCOUNTER → 2018-10-13 | Outpatient (CLI) | payer MEDICARE, BC ==
--- NOTE | 2018-10-13 07:59 | CT ---
EXAMINATION TYPE: CT chest w con DATE OF EXAM: 10/13/2018 COMPARISON: HISTORY: Hemoptysis CT DLP: 302.8 mGycm Automated exposure control for dose reduction was used. CONTRAST: CT scan of the chest is performed with IV Contrast, patient injected with 80 mL of Isovue 300. FINDINGS: LUNGS: Scattered interstitial curly B lines are noted with cardiomegaly and small effusions suggest t he possibility of underlying congestive failure. Correlate clinically. Scattered areas of the right-s ided pleural thickening. No evidence for pulmonary mass or distinct nodule. No focal consolidation or volume loss. MEDIASTINUM: High right periaortic adenopathy measuring up to 2.2 cm. Right hilar adenopathy measurin g 1.6 cm. Subcarinal adenopathy measuring 1.2 cm. Thoracic aorta is ectatic and atheromatous. The hea rt is enlarged. UPPER ABDOMEN: No significant abnormality appreciated. OTHER: No additional significant abnormality is seen. IMPRESSION: 1. Correlate for a mild congestive failure. 2. Scattered areas of right-sided pleural thickening nonspecific. 3. High right periaortic adenopathy measuring up to 2.2 cm. Right hilar adenopathy measuring 1.6 cm. Subcarinal adenopathy measuring 1.2 cm.
== END | disposition home or self-care (01) ==
LOC: RADCTMAIN 06:51
PROVIDERS: ATTEND Internal Medicine
DX: J92.9 Pleural plaque without asbestos (principal); R59.0 Localized enlarged lymph nodes
CPT/HCPCS: 71260; Q9967

== ENCOUNTER 2019-03-21 06:31 | Emergency (ER) | payer MEDICARE, BC ==
[2019-03-21] MEDS ORDERED: SODIUM CHLORIDE 0.9% 1,000 ML IV ONE (06:35)
--- NOTE | 2019-03-21 06:39 | ED ---
Altered Mental Status HPI - General Stated Complaint: Neuro Symptoms - History of Present Illness Initial Comments: Pauline is a pleasant 83-year-old female who lives at an independent living facility, she comes to the emergency department today for evaluation of confusion. Staff reports that she walked down stairs early this morning stating that she needed help, she thought something was wrong, she stated the year was 1990, she believes she was in [place]. She couldn't name any of her family members. care was discussed with her son's doctors Rikki and yusef iniguez both of whom confirm the patient's mental status seems to been declining over the past week, they have planned a move for her from her independent living to a memory care facility. - Related Data Home Medications Medication Instructions Recorded Confirmed Aspirin 81 mg PO DAILY PRN 07/06/15 03/21/19 Clopidogrel [Plavix] 75 mg PO HS 10/10/16 03/21/19 Ergocalciferol (Vitamin D2) 50,000 unit PO RIVERA 10/10/16 03/21/19 [Vitamin D2] Metoprolol Succinate (ER) [Toprol 25 mg PO HS 10/10/16 03/21/19 XL] Levothyroxine Sodium [Synthroid] 50 mcg PO HS 01/24/17 03/21/19 Atorvastatin [Lipitor] 20 mg PO SU 03/21/19 03/21/19 Donepezil [Aricept] 5 mg PO HS 03/21/19 03/21/19 Esomeprazole Magnesium [NexIUM] 20 mg PO HS 03/21/19 03/21/19 Lisinopril [Zestril] 10 mg PO HS 03/21/19 03/21/19 Rivaroxaban [Xarelto] 7.5 mg PO HS 03/21/19 03/21/19 Allergies Allergy/AdvReac Type Severity Reaction Status Date / Time amoxicillin trihydrate Allergy Unknown Verified 03/21/19 07:58 [From Augmentin] potassium clavulanate Allergy Unknown Verified 03/21/19 07:58 [From Augmentin] Review of Systems ROS Statement: Those systems with pertinent positive or pertinent negative responses have been documented in the HPI. ROS Other: All systems not noted in ROS Statement are negative. Past Medical History Past Medical History: Coronary Artery Disease (CAD), Chest Pain / Angina, COPD, CVA/TIA, Diabetes Mellitus, Hyperlipidemia, Liver Disease, Myocardial Infarction ([place]), Thyroid Disorder Additional Past Medical History / Comment(s): History of borderline diabetes, CVA, hypothyroidism and COPD. Patient noncompliant with medications. Last Myocardial Infarction Date:: 07/06/2015 History of Any Multi-Drug Resistant Organisms: None Reported Past Surgical History: Bowel Resection, Heart Catheterization With Stent Past Anesthesia/Blood Transfusion Reactions: No Reported Reaction Date of Last Stent Placement:: 2014 Past Psychological History: Unable to Obtain Smoking Status: Former smoker - Past Family History Mother Family Medical History: Congestive Heart Failure (CHF) General Exam - General Exam Comments Initial Comments: Physical Exam GENERAL: Patient is well-developed and well-nourished. Patient is nontoxic and well-hydrated and is in no distress. HENT: Normocephalic, Atraumatic. EYES: PERRL, EOMI PULMONARY: Unlabored respirations CARDIOVASCULAR: RRR Pacemaker present left chest wall ABDOMEN: Soft and nontender with normal bowel sounds. SKIN: Skin is clear with no lesions or rashes and otherwise unremarkable. : Deferred NEUROLOGIC: Patient is alert and oriented x3. Moving all extremities spontaneously MUSCULOSKELETAL: Normal extremities with adequate strength and full range of motion. No lower extremity swelling or edema. No calf tenderness. PSYCHIATRIC: Normal psychiatric evaluation. Course Vital Signs 03/21/19 03/21/19 03/21/19 07:14 08:35 10:04 Temperature 97.8 F 97.9 F 98.4 F Pulse Rate 70 70 76 Respiratory 18 18 18 Rate Blood Pressure 173/79 167/79 134/90 O2 Sat by Pulse 99 97 98 Oximetry Medical Decision Making - Medical Decision Making The patient was seen and evaluated history is obtained from EMS, the patient and family members I signed this is a very pleasantly confused 83 her old female. Labs and imaging were discussed with the patient as well as her son Dr. Loaiza. Labs and imaging were ordered Labs unremarkable CT dry with concern for edema, CT with contrast resulted with signs of old CVA Results discussed with patient and family who are comfortable with plan for discharge home and supportive care - Lab Data Result diagrams: 03/21/19 07:19 03/21/19 07:19 Lab Results 03/21/19 03/21/19 03/21/19 Range/Units 06:51 07:19 07:19 WBC 8.2 (3.8-10.6) k/uL RBC 4.66 (3.80-5.40) m/uL Hgb 14.6 (11.4-16.0) gm/dL Hct 45.5 (34.0-46.0) % MCV 97.6 (80.0-100.0) fL MCH 31.3 (25.0-35.0) pg MCHC 32.0 (31.0-37.0) g/dL RDW 15.7 H (11.5-15.5) % Plt Count 231 (150-450) k/uL Neutrophils % 72 % Lymphocytes % 16 % Monocytes % 6 % Eosinophils % 3 % Basophils % 1 % Neutrophils # 5.9 (1.3-7.7) k/uL Lymphocytes # 1.3 (1.0-4.8) k/uL Monocytes # 0.5 (0-1.0) k/uL Eosinophils # 0.3 (0-0.7) k/uL Basophils # 0.1 (0-0.2) k/uL PT (9.0-12.0) sec INR (<1.2) APTT (22.0-30.0) sec Sodium 143 (137-145) mmol/L Potassium 4.2 (3.5-5.1) mmol/L Chloride 110 H (98-107) mmol/L Carbon Dioxide 27 (22-30) mmol/L Anion Gap 6 mmol/L BUN 20 H (7-17) mg/dL Creatinine 0.86 (0.52-1.04) mg/dL Est GFR (CKD-EPI)AfAm 72 (>60 ml/min/1.73 sqM) Est GFR (CKD-EPI)NonAf 62 (>60 ml/min/1.73 sqM) Glucose 76 (74-99) mg/dL POC Glucose (mg/dL) 87 (75-99) mg/dL POC Glu Tie Cutter ID Jacqueline Doyle Calcium 9.2 (8.4-10.2) mg/dL Total Bilirubin 0.7 (0.2-1.3) mg/dL AST 23 (14-36) U/L ALT 26 (9-52) U/L Alkaline Phosphatase 85 (38-126) U/L Troponin I (0.000-0.034) ng/mL Total Protein 6.8 (6.3-8.2) g/dL Albumin 3.5 (3.5-5.0) g/dL Urine Color Urine Appearance (Clear) Urine pH (5.0-8.0) Ur Specific [place] (1.001-1.035) Urine Protein (Negative) Urine Glucose (UA) (Negative) Urine Ketones (Negative) Urine Blood (Negative) Urine Nitrite (Negative) Urine Bilirubin (Negative) Urine Urobilinogen (<2.0) mg/dL Ur Leukocyte Esterase (Negative) Urine RBC (0-5) /hpf Urine WBC (0-5) /hpf Ur Squamous Epith Cells (0-4) /hpf Hyaline Casts (0-2) /lpf Urine Mucus (None) /hpf 03/21/19 03/21/19 03/21/19 Range/Units 07:19 07:19 07:19 WBC (3.8-10.6) k/uL RBC (3.80-5.40) m/uL Hgb (11.4-16.0) gm/dL Hct (34.0-46.0) % MCV (80.0-100.0) fL MCH (25.0-35.0) pg MCHC (31.0-37.0) g/dL RDW (11.5-15.5) % Plt Count (150-450) k/uL Neutrophils % % Lymphocytes % % Monocytes % % Eosinophils % % Basophils % % Neutrophils # (1.3-7.7) k/uL Lymphocytes # (1.0-4.8) k/uL Monocytes # (0-1.0) k/uL Eosinophils # (0-0.7) k/uL Basophils # (0-0.2) k/uL PT 12.1 H (9.0-12.0) sec INR 1.2 H (<1.2) APTT 23.8 (22.0-30.0) sec Sodium (137-145) mmol/L Potassium (3.5-5.1) mmol/L Chloride (98-107) mmol/L Carbon Dioxide (22-30) mmol/L Anion Gap mmol/L BUN (7-17) mg/dL Creatinine (0.52-1.04) mg/dL Est GFR (CKD-EPI)AfAm (>60 ml/min/1.73 sqM) Est GFR (CKD-EPI)NonAf (>60 ml/min/1.73 sqM) Glucose (74-99) mg/dL POC Glucose (mg/dL) (75-99) mg/dL POC Glu Tie Cutter ID Calcium (8.4-10.2) mg/dL Total Bilirubin (0.2-1.3) mg/dL AST (14-36) U/L ALT (9-52) U/L Alkaline Phosphatase (38-126) U/L Troponin I <0.012 (0.000-0.034) ng/mL Total Protein (6.3-8.2) g/dL Albumin (3.5-5.0) g/dL Urine Color Yellow Urine Appearance Clear (Clear) Urine pH 5.0 (5.0-8.0) Ur Specific [place] 1.018 (1.001-1.035) Urine Protein Negative (Negative) Urine Glucose (UA) Negative (Negative) Urine Ketones Negative (Negative) Urine Blood Negative (Negative) Urine Nitrite Negative (Negative) Urine Bilirubin Negative (Negative) Urine Urobilinogen <2.0 (<2.0) mg/dL Ur Leukocyte Esterase Small H (Negative) Urine RBC 1 (0-5) /hpf Urine WBC 1 (0-5) /hpf Ur Squamous Epith Cells 1 (0-4) /hpf Hyaline Casts 1 (0-2) /lpf Urine Mucus Rare H (None) /hpf Disposition Clinical Impression: Confusion Disposition: HOME SELF-CARE Condition: Stable Instructions (If sedation given, give patient instructions): Altered Mental Status (ED) Is patient prescribed a controlled substance at d/c from ED?: No Referrals: Jolly Loaiza DO [Primary Care Provider] - 1-2 days
[2019-03-21 06:54] LABS: Glucose,Whole Blood 87 mg/dL (75-99)
[2019-03-21 07:17] VITALS: RESP 18
[2019-03-21 07:34] LABS: Basophils # (A) 0.1 k/uL (0-0.2); Basophils % (A) 1 %; Eosinophils # (A) 0.3 k/uL (0-0.7); Eosinophils % (A) 3 %; HCT 45.5 % (34.0-46.0); HGB 14.6 gm/dL (11.4-16.0); Lymphocytes # (A) 1.3 k/uL (1.0-4.8); Lymphocytes % (A) 16 %; MCH 31.3 pg (25.0-35.0); MCV 97.6 fL (80.0-100.0); Mean Platelet Volume 7.9; Monocytes # (A) 0.5 k/uL (0-1.0); Monocytes % (A) 6 %; Neutrophils # (A) 5.9 k/uL (1.3-7.7); Neutrophils % (A) 72 %; Platelet Count 231 k/uL (150-450); RBC 4.66 m/uL (3.80-5.40); RDW 15.7 % (11.5-15.5); WBC 8.2 k/uL (3.8-10.6)
--- NOTE | 2019-03-21 07:35 | XR ---
EXAM: XR Chest, 1 View CLINICAL HISTORY: ITS.REASON XR Reason: altered mental status TECHNIQUE: Frontal view of the chest. COMPARISON: Chest x-ray 10/04/[address] 10/13/2018 FINDINGS: Lungs: Increased interstitial markings bilaterally, similar to prior and likely chronic changes. Focal irregular nodular opacity versus atelectasis in the left lung base not seen on prior. Pleural space: Unremarkable. No pneumothorax. Heart: Unremarkable. No cardiomegaly. Mediastinum: Unremarkable. Bones/joints: Unremarkable. Tubes, lines and devices: Stable left chest wall pacemaker. IMPRESSION: 1. Increased interstitial markings bilaterally, similar to prior and likely chronic changes. 2. Focal irregular nodular opacity versus atelectasis in the left lung base, not seen on prior. Consider follow-up chest x-ray/CT
[2019-03-21 07:42] LABS: Albumin 3.5 g/dL (3.5-5.0); Calcium 9.2 mg/dL (8.4-10.2); Potassium 4.2 mmol/L (3.5-5.1); Total Bilirubin 0.7 mg/dL (0.2-1.3); Total Protein 6.8 g/dL (6.3-8.2)
[2019-03-21 07:52] LABS: INR 1.2 (<1.2); Partial Thromboplastin Time 23.8 sec (22.0-30.0); Prothrombin Time 12.1 sec (9.0-12.0)
[2019-03-21 07:53] LABS: Appearance,Urine Clear (Clear); Bilirubin,Urine Negative (Negative); Blood,Urine Negative (Negative); Color,Urine Yellow; Glucose,Urine (UA) Negative (Negative); Hyaline Casts,Urine 1 /lpf (0-2); Ketones,Urine Negative (Negative); Leukocyte Esterase,Urine Small (Negative); Mucus,Urine Rare /hpf; Nitrite,Urine Negative (Negative); Protein,Urine Negative (Negative); RBC,Urine 1 /hpf (0-5); Specific Gravity,Urine 1.018 (1.001-1.035); Squamous Epithelial Cell,Urine 1 /hpf (0-4); Urobilinogen,Urine <2.0 mg/dL (<2.0)
--- NOTE | 2019-03-21 08:13 | CT ---
EXAMINATION TYPE: CT brain wo con DATE OF EXAM: 03/21/2019 COMPARISON: 07/12/2015 HISTORY: 07/12/[address] DLP: 1039.4 mGycm Automated exposure control for dose reduction was used. TECHNIQUE: CT scan of the head is performed without contrast. FINDINGS: There is progressive white matter change within the right cerebral hemisphere. Or focal a reas that do include both the davis and white matter relating to the previously described infarcts wit h development of encephalomalacia, however given the appearance of vasogenic edema CT with contrast i s recommended to exclude underlying mass. There is no acute intracranial hemorrhage or midline shift identified. No suspicious extra-axial flui d collection. There is diffuse ventricular and sulcal prominence consistent with diffuse age-related cerebral atrophy. Incidentally noted partially empty sella turcica. There is low-attenuation in the left periventricular white matter consistent with chronic small vessel ischemic change. The globes a re intact and the visualized sinuses are clear. IMPRESSION: 1. Interval progression of right hemispheric white matter change. Given the focality and asymmetry wi th the left hemisphere as well as the appearance of vasogenic edema CT with contrast is recommended t o exclude underlying intracranial mass. There is progression of encephalomalacia in the previously no baljit areas of focal infarct in the right frontal and parietal white matter near the skull vertex. 2. No acute intracranial hemorrhage or midline shift. There is diffuse age-related cerebral atrophy and chronic small vessel ischemic change noted.
[2019-03-21] MEDS ORDERED: RX INFO: IV CONTRAST WAS GIVEN 1 EACH MISC MISCELLANE PRN (08:27)
[2019-03-21] MEDS ORDERED: diphenhydrAMINE 50 MG/ML 1 ML VIAL IVP STA (08:33)
[2019-03-21] MEDS ORDERED: DEXAMETHASONE SOD PHOSPHATE 10 MG/ML 1 ML VIAL IV STA (08:33)
--- NOTE | 2019-03-21 09:18 | CT ---
EXAMINATION TYPE: CT brain w con DATE OF EXAM: 03/21/2019 COMPARISON: CT brain of the same date HISTORY: abnormal prior ct. Altered mental status. CT DLP: 1079.4 mGycm Automated Exposure Control for Dose Reduction was Utilized. TECHNIQUE: CT scan of the head is performed with IV contrast.,CT scan of the head is performed with w ith IV Contrast, patient injected with 80 mL of Isovue 300. FINDINGS: Exam was performed with contrast only to further evaluate the white matter change seen on t he prior CT. No abnormal intracranial enhancement is seen and therefore the right-sided abnormal whit e matter changes attributable to sequela infarct. 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 IMPRESSION: No abnormal intracranial enhancement therefore the extensive white matter change is attri butable to prior infarct. 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
[2019-03-21 10:05] VITALS: BP 134/90; PULSE 76; TEMP 98.4
== END 2019-03-21 10:05 | disposition home or self-care (01) ==
LOC: EC 06:31
DX: R41.0 Disorientation, unspecified (principal); I25.119 Atherosclerotic heart disease of native coronary artery with unspecified angina pectoris; I25.2 Old myocardial infarction; E78.5 Hyperlipidemia, unspecified; E03.9 Hypothyroidism, unspecified; Z79.01 Long term (current) use of anticoagulants; Z79.82 Long term (current) use of aspirin; Z79.890 Hormone replacement therapy; Z79.899 Other long term (current) drug therapy; Z79.02 Long term (current) use of antithrombotics/antiplatelets; Z53.9 Procedure and treatment not carried out, unspecified reason; Z95.0 Presence of cardiac pacemaker; Z87.891 Personal history of nicotine dependence; Z88.0 Allergy status to penicillin; Z86.73 Personal history of transient ischemic attack (TIA), and cerebral infarction without residual deficits; Z95.5 Presence of coronary angioplasty implant and graft
CPT/HCPCS: 99285; 36415; 80053; 84484; 85025; 85610; 85730; 81001; 71045; 70450; 70460; 96360; Q9967

== ENCOUNTER 2019-04-08 09:44 | Inpatient (IN) | payer MEDICARE, BC ==
--- NOTE | 2019-04-08 10:56 | CT ---
EXAMINATION TYPE: CT brain otoniel [place] con DATE OF EXAM: 04/08/2019 COMPARISON: 03/21/2019 HISTORY: 83-year-old female Fall; head and neck pain s/p fall TECHNIQUE: Contiguous axial scanning of the head and cervical spine without IV contrast. Coronal and sagittal reconstructions performed. CT DLP: 1240 mGycm Automated exposure control for dose reduction was used. FINDINGS: Head: There is no evidence of acute intracranial hemorrhage, acute ischemic changes, mass, mass-effect, or extra-axial fluid collection. There is no effacement of cerebral sulci or basal subarachnoid cister ns. There is no hydrocephalus. There is no midline shift. Villa-white matter distinction is preserv ed. Moderate generalized atrophy. Old right frontal and right parietal lobe infarcts with encephalomalaci a and patchy confluent white matter hypodensities both cerebral hemispheres. There is a partially emp ty sella. Leftward nasal septal deviation. Paranasal sinuses and mastoid air cells are well pneumatized. Orbits and globes are intact. Cervical spine: No craniocervical junction abnormality, predental space widening, or prevertebral soft tissue swellin g. Degenerative changes at the C1 dens articulation. Grade 1 retrolisthesis at C3-C4, grade 1 anterolisthesis at C5-C6 and C7-T1. Chronic appearing inferior endplate deformity of T1. No acute fracture of the cervical spine seen. Multilevel facet and uncovertebral joint arthropathy. Moderate to advanced multilevel disc/endplate d egenerative change likely contributing to variable mild spinal canal stenoses. Variable moderate and severe neural foraminal stenoses are present throughout Emphysematous change in the visualized upper lungs. Sagittal and coronal reformatted images confirm above findings. COMBINED IMPRESSION: 1. Right frontal right parietal lobe areas of encephalomalacia relating to prior infarcts. Background of moderate confluent changes of chronic small vessel ischemic disease and moderate generalized atro phy. 2. No acute intracranial abnormality seen. 3. Advanced spondylotic change cervical spine with degenerative grade 1 spondylolisthesis. No acute f racture identified.
[2019-04-08 10:59] LABS: Anisocytosis Slight; Basophils # (A) 0.1 k/uL (0-0.2); Basophils % (A) 1 %; Eosinophils # (A) 0.2 k/uL (0-0.7); Eosinophils % (A) 2 %; HCT 47.6 % (34.0-46.0); HGB 15.5 gm/dL (11.4-16.0); Lymphocytes # (A) 1.2 k/uL (1.0-4.8); Lymphocytes % (A) 13 %; MCH 31.5 pg (25.0-35.0); MCHC 32.6 g/dL (31.0-37.0); MCV 96.6 fL (80.0-100.0); Mean Platelet Volume 7.7; Monocytes # (A) 0.5 k/uL (0-1.0); Monocytes % (A) 6 %; Neutrophils % (A) 77 %; Platelet Count 248 k/uL (150-450); RBC 4.93 m/uL (3.80-5.40); RDW 16.3 % (11.5-15.5); WBC 9.1 k/uL (3.8-10.6)
--- NOTE | 2019-04-08 11:20 | ED ---
Fall HPI - General Chief Complaint: Fall Stated Complaint: FALL Time Seen by Provider: 04/08/19 09:44 Source: patient, family, EMS, RN notes reviewed Mode of arrival: EMS - History of Present Illness Initial Comments: This is a 83-year-old female who is on blood thinners who apparently tripped over a rug and fell initially on her knees and onto her face prior to admission she complains of head neck pain no loss of consciousness no loss of function to her upper or lower extremities of she is complaining of left knee pain. Also some left hip area pain no other modifying factors no reports of palpitations or syncope. MD Complaint: fall - Related Data Home Medications Medication Instructions Recorded Confirmed Aspirin 81 mg PO DAILY PRN 07/06/15 04/08/19 Clopidogrel [Plavix] 75 mg PO HS 10/10/16 04/08/19 Ergocalciferol (Vitamin D2) 50,000 unit PO RIVERA 10/10/16 04/08/19 [Vitamin D2] Metoprolol Succinate (ER) [Toprol 25 mg PO HS 10/10/16 04/08/19 XL] Levothyroxine Sodium [Synthroid] 50 mcg PO HS 01/24/17 04/08/19 Atorvastatin [Lipitor] 20 mg PO SUWE 03/21/19 04/08/19 Donepezil [Aricept] 5 mg PO HS 03/21/19 04/08/19 Esomeprazole Magnesium [NexIUM] 20 mg PO HS 03/21/19 04/08/19 Lisinopril [Zestril] 10 mg PO HS 03/21/19 04/08/19 Rivaroxaban [Xarelto] 7.5 mg PO HS 03/21/19 04/08/19 Allergies Allergy/AdvReac Type Severity Reaction Status Date / Time amoxicillin trihydrate Allergy Unknown Verified 04/08/19 10:18 [From Augmentin] potassium clavulanate Allergy Unknown Verified 04/08/19 10:18 [From Augmentin] Review of Systems ROS Statement: Those systems with pertinent positive or pertinent negative responses have been documented in the HPI. ROS Other: All systems not noted in ROS Statement are negative. Past Medical History Past Medical History: Coronary Artery Disease (CAD), Chest Pain / Angina, COPD, CVA/TIA, Diabetes Mellitus, Hyperlipidemia, Liver Disease, Myocardial Infarction ([place]), Thyroid Disorder Additional Past Medical History / Comment(s): History of borderline diabetes, CVA, hypothyroidism and COPD. Patient noncompliant with medications. Last Myocardial Infarction Date:: 07/06/2015 History of Any Multi-Drug Resistant Organisms: None Reported Past Surgical History: Bowel Resection, Heart Catheterization With Stent Past Anesthesia/Blood Transfusion Reactions: No Reported Reaction Date of Last Stent Placement:: 2014 Past Psychological History: Unable to Obtain Smoking Status: Former smoker Past Alcohol Use History: None Reported Past Drug Use History: None Reported - Past Family History Mother Family Medical History: Congestive Heart Failure (CHF) General Exam - General Exam Comments Initial Comments: This is a well-developed sec appearing female who is awake alert oriented 3 she does have a cervical collar in place. Limitations: no limitations General appearance: alert, anxious Head exam: Present: normocephalic, other (Normocephalic with evidence of a nasal contusion ecchymosis and abrasion) Eye exam: Present: normal appearance, PERRL, EOMI. Absent: scleral icterus, conjunctival injection, periorbital swelling ENT exam: Present: mucous membranes moist, other (No gross bleeding from the naris. Tenderness over the nose/nasal and with abrasion and contusion noted.) Neck exam: Present: normal inspection, other (Cervical collar in place). Absent: tenderness, meningismus, lymphadenopathy Respiratory exam: Present: normal lung sounds bilaterally. Absent: respiratory distress, wheezes, rales, rhonchi, stridor Cardiovascular Exam: Present: regular rate, normal rhythm, normal heart sounds. Absent: systolic murmur, diastolic murmur, rubs, gallop, clicks GI/Abdominal exam: Present: soft, normal bowel sounds. Absent: distended, tenderness, guarding, rebound, rigid Extremities exam: Present: full ROM, tenderness (Abrasions over the knees with tenderness palpation over left knee also some mild left hip tenderness), normal capillary refill. Absent: pedal edema, joint swelling, calf tenderness Back exam: Present: normal inspection Neurological exam: Present: alert, oriented X3, CN II-XII intact Psychiatric exam: Present: normal affect, normal mood Skin exam: Present: warm, dry, normal color. Absent: rash Course Vital Signs 04/08/19 04/08/19 09:45 11:43 Temperature 97.5 F L Pulse Rate 70 78 Respiratory 18 18 Rate Blood Pressure 186/84 156/82 O2 Sat by Pulse 94 L 92 L Oximetry Medical Decision Making - Medical Decision Making I did discuss findings the patient and her son was present as well as with Dr. Loaiza. Patient will be admitted with orthopedic consultation. - Lab Data Result diagrams: 04/08/19 10:50 04/08/19 10:50 Lab Results 04/08/19 04/08/19 Range/Units 10:50 10:50 WBC 9.1 (3.8-10.6) k/uL RBC 4.93 (3.80-5.40) m/uL Hgb 15.5 (11.4-16.0) gm/dL Hct 47.6 H (34.0-46.0) % MCV 96.6 (80.0-100.0) fL MCH 31.5 (25.0-35.0) pg MCHC 32.6 (31.0-37.0) g/dL RDW 16.3 H (11.5-15.5) % Plt Count 248 (150-450) k/uL Neutrophils % 77 % Lymphocytes % 13 % Monocytes % 6 % Eosinophils % 2 % Basophils % 1 % Neutrophils # 7.0 (1.3-7.7) k/uL Lymphocytes # 1.2 (1.0-4.8) k/uL Monocytes # 0.5 (0-1.0) k/uL Eosinophils # 0.2 (0-0.7) k/uL Basophils # 0.1 (0-0.2) k/uL Anisocytosis Slight Sodium 140 (137-145) mmol/L Potassium 5.4 H (3.5-5.1) mmol/L Chloride 110 H (98-107) mmol/L Carbon Dioxide 18 L (22-30) mmol/L Anion Gap 12 mmol/L BUN 20 H (7-17) mg/dL Creatinine 0.82 (0.52-1.04) mg/dL Est GFR (CKD-EPI)AfAm 76 (>60 ml/min/1.73 sqM) Est GFR (CKD-EPI)NonAf 66 (>60 ml/min/1.73 sqM) Glucose 95 (74-99) mg/dL Calcium 9.3 (8.4-10.2) mg/dL Magnesium 2.0 (1.6-2.3) mg/dL Total Bilirubin 1.1 (0.2-1.3) mg/dL AST 39 H (14-36) U/L ALT 13 (9-52) U/L Alkaline Phosphatase 90 (38-126) U/L Creatine Kinase 106 (30-135) U/L Total Protein 7.3 (6.3-8.2) g/dL Albumin 3.9 (3.5-5.0) g/dL - Radiology Data Radiology results: report reviewed (I did review the imaging and report CT the brain and C-spine are negative for acute findings there was evidence of a nasal fracture on the left I did discuss this with radiologist. Additionally there is evidence of a possible tibial plateau fracture left CT did confirm this.), image reviewed Disposition Clinical Impression: Fall, Tibial plateau fracture, left, Nasal fracture, Nasal contusion Disposition: ADMITTED IP TO THIS [facility] Condition: Fair Referrals: Jolly Loaiza DO [Primary Care Provider] - 1-2 days
--- NOTE | 2019-04-08 11:23 | XR ---
EXAMINATION TYPE: XR pelvis AP view DATE OF EXAM: 04/08/2019 CLINICAL HISTORY: pain TECHNIQUE: Single view the pelvis is submitted. FINDINGS: No evidence for fracture, dislocation or bony lesion. Degenerative joint space narrowing s een bilaterally right greater than left. SI joints appear symmetric. IMPRESSION: 1. No acute fracture or dislocation seen. ICD 10 NO FRACTURE, INITIAL EVALUATION
--- NOTE | 2019-04-08 11:24 | XR ---
EXAMINATION TYPE: XR knee complete bilateral DATE OF EXAM: 04/08/2019 CLINICAL HISTORY: pain TECHNIQUE: Three views of the right knee are obtained. COMPARISON: None. FINDINGS: There is no acute fracture/dislocation. The tri-compartment joint spaces appear within no rmal limits. The overlying soft tissue appears unremarkable. IMPRESSION: There is no acute fracture or dislocation.ICD 10 NO FRACTURE, INITIAL EVALUATION EXAMINATION TYPE: XR knee complete bilateral DATE OF EXAM: 04/08/2019 CLINICAL HISTORY: pain TECHNIQUE: Three views of the left knee are obtained. COMPARISON: None. FINDINGS: Cortical lucency involving the tibia anteriorly may reflect fracture. Correlate clinically point tenderness. The tri-compartment joint spaces appear within normal limits. The overlying soft t issue appears unremarkable. IMPRESSION: Cortical lucency involving the tibia anteriorly may reflect fracture. Correlate clinically point tend erness.
[2019-04-08 11:29] LABS: Albumin 3.9 g/dL (3.5-5.0); Calcium 9.3 mg/dL (8.4-10.2); Total Bilirubin 1.1 mg/dL (0.2-1.3); Total Protein 7.3 g/dL (6.3-8.2)
[2019-04-08 11:36] LABS: Potassium 5.4 mmol/L (3.5-5.1)
--- NOTE | 2019-04-08 12:43 | CT ---
EXAMINATION TYPE: CT knee LT wo con DATE OF EXAM: 04/08/2019 COMPARISON: Radiograph same day HISTORY: 83-year-old female for follow up of xray. Assess fracture TECHNIQUE: Contiguous axial scanning of the left knee without IV contrast. Coronal and sagittal recon structions performed. CT DLP: 183.6 mGycm Automated exposure control for dose reduction was used. FINDINGS: Glenohumeral arthrosis. Marked osteopenia. Tibial plateau fracture. Fracture lucency is not well seen due to the degree of osteopenia. There is fracture involving the anterior tibial plateau with fracture line extending to the anterolat eral tibial metadiaphysis at the site of lucency seen on radiographs. This is a vertical fracture. Fr acture lucency continues posteriorly to the mid tibial plateau adjacent to the tibial eminence No significant There is approximately 3 mm of articular surface depression for an area spanning 2.1 cm wide and 1.5 cm AP. There is comminution which incorporates the tibial tuberosity with fragment measuring 3.0 x 1. 9 x 0.7 cm. IMPRESSION: 1. MINIMALLY IMPACTED LATERAL TIBIAL PLATEAU FRACTURE WITH DEPRESSION OF 3 MM FOR AN AREA OF 2.1 CM W BRINDA BY 1.5 CM AP ALONG THE ANTEROLATERAL MARGIN. VERTICAL FRACTURE COMPONENT EXTENDS TO THE ANTEROLAT ERAL CORTEX OF THE PROXIMAL METADIAPHYSIS CORRESPONDING TO THE LUCENCY SEEN ON RADIOGRAPH. 2. NONDISPLACED FRACTURE EXTENSION POSTERIORLY TO THE MID LATERAL TIBIAL PLATEAU ADJACENT TO THE INTE RCONDYLAR EMINENCE. 3. THE TIBIAL TUBEROSITY (WITH THE PATELLAR TENDON INSERTION) SEEMS TO BE A SEPARATE COMMINUTED FRAGM ENT MEASURING 3.0 CM CRANIOCAUDAL BY 1.9 CM WIDE BY 7 MM AP. 4. ASSOCIATED LIPOHEMARTHROSIS.
[2019-04-08] MEDS ORDERED: HYDROmorphone 0.5 MG/0.5 ML SYRINGE IVP PRN (13:41)
[2019-04-08] MEDS ORDERED: HYDROmorphone 0.5 MG/0.5 ML SYRINGE IVP STA (13:42)
[2019-04-08] MEDS ORDERED: ASPIRIN 81 MG PO PRN (13:43)
[2019-04-08] MEDS ORDERED: NALOXONE 0.4 MG/ML 1 ML VIAL IV PRN (14:01)
[2019-04-08] MEDS ORDERED: SODIUM CHLORIDE 0.9% 1,000 ML IV SCH (14:15)
[2019-04-08] MEDS ORDERED: HYDROcodone/APAP 5-325MG 1 EACH TAB PO PRN (16:41)
[2019-04-08] MEDS: METOPROLOL SUCCINATE (ER) 25 MG TAB.ER.24H PO SCH (17:22)
[2019-04-08] MEDS: ACETAMINOPHEN TAB 325 MG TAB PO SCH ×2 (17:22→23:53)
[2019-04-08] MEDS: LISINOPRIL 10 MG TAB PO SCH (17:22)
[2019-04-08] MEDS: SODIUM CHLORIDE 0.9% 1,000 ML IV SCH (19:02)
[2019-04-08 20:29] LABS: Glucose,Whole Blood 137 mg/dL (75-99)
[2019-04-08] MEDS: PANTOPRAZOLE 40 MG TABLET PO SCH (21:34)
[2019-04-08] MEDS: CLOPIDOGREL 75 MG TAB PO SCH (21:34)
[2019-04-08] MEDS: LEVOTHYROXINE 50 MCG TAB PO SCH (21:34)
[2019-04-08] MEDS: HEPARIN SODIUM,PORCINE 5,000 UNIT/ML 1 ML VIAL SQ SCH (21:36)
[2019-04-08] MEDS: DONEPEZIL 5 MG TAB PO SCH (22:39)
[2019-04-09] MEDS: HEPARIN SODIUM,PORCINE 5,000 UNIT/ML 1 ML VIAL SQ SCH ×2 (03:50→07:37)
[2019-04-09] MEDS: SODIUM CHLORIDE 0.9% 1,000 ML IV SCH ×2 (05:46→19:21)
[2019-04-09] MEDS: ACETAMINOPHEN TAB 325 MG TAB PO SCH ×3 (05:49→19:21)
[2019-04-09] MEDS ORDERED: IBUPROFEN 400 MG TAB PO STA (07:24)
--- NOTE | 2019-04-09 09:55 | P.CNOR ---
History of Present Illness - [facility] Consult date: 04/09/19 Consult reason: fracture History of present illness: The patient's an 83-year-old female who ambulates normally with a walker and lives at home who presents after falling yesterday landing on her left side. She denied loss of consciousness. Review of Systems Musculoskeletal: Reports as per HPI Past Medical History Past Medical History: Coronary Artery Disease (CAD), Chest Pain / Angina, COPD, CVA/TIA, Diabetes Mellitus, Hyperlipidemia, Liver Disease, Myocardial Infarction ([place]), Thyroid Disorder Additional Past Medical History / Comment(s): History of borderline diabetes, CVA, hypothyroidism and COPD. Patient noncompliant with medications. Last Myocardial Infarction Date:: 07/06/2015 History of Any Multi-Drug Resistant Organisms: None Reported Past Surgical History: Bowel Resection, Heart Catheterization With Stent, Abel diaz Past Anesthesia/Blood Transfusion Reactions: No Reported Reaction Date of Last Stent Placement:: 2014 Type of Cardiac Device: Unknown Device Placement Date:: unknown Past Psychological History: Unable to Obtain Additional Psychological History / Comment(s): per family Jolly "patient has bouts of paranoia" Parviz "she gets fixated on things & there is no changing her mind" Smoking Status: Current some day smoker Past Alcohol Use History: None Reported Past Drug Use History: None Reported - Past Family History Mother Family Medical History: Congestive Heart Failure (CHF) Medications and Allergies Home Medications Medication Instructions Recorded Confirmed Type Aspirin 81 mg PO DAILY PRN 07/06/15 04/08/19 History Clopidogrel [Plavix] 75 mg PO HS 10/10/16 04/08/19 History Ergocalciferol (Vitamin D2) 50,000 unit PO RIVERA 10/10/16 04/08/19 History [Vitamin D2] Metoprolol Succinate (ER) [Toprol 25 mg PO HS 10/10/16 04/08/19 History XL] Levothyroxine Sodium [Synthroid] 50 mcg PO HS 01/24/17 04/08/19 History Atorvastatin [Lipitor] 20 mg PO SUWE 03/21/19 04/08/19 History Donepezil [Aricept] 5 mg PO HS 03/21/19 04/08/19 History Esomeprazole Magnesium [NexIUM] 20 mg PO HS 03/21/19 04/08/19 History Lisinopril [Zestril] 10 mg PO HS 03/21/19 04/08/19 History Rivaroxaban [Xarelto] 7.5 mg PO HS 03/21/19 04/08/19 History Allergies Allergy/AdvReac Type Severity Reaction Status Date / Time amoxicillin trihydrate Allergy Unknown Verified 04/08/19 10:18 [From Augmentin] potassium clavulanate Allergy Unknown Verified 04/08/19 10:18 [From Augmentin] Physical Examination - Knee left Appearance: effusion (Moderate) Tenderness with palpation: none Pain: other (Tender over the anterior and lateral proximal tibia) ROM: extension: -10 degrees ROM: flexion: 50 degrees Strength: extension: 4/5 Strength: flexion: 5/5 (Painless range of motion left hip, left knee stable to varus and valgus stress, nontender left ankle and foot) Results - Labs Labs: Abnormal Lab Results - Last 24 Hours (Table) 04/08/19 04/08/19 04/08/19 Range/Units 10:50 10:50 20:16 Hct 47.6 H (34.0-46.0) % RDW 16.3 H (11.5-15.5) % Potassium 5.4 H (3.5-5.1) mmol/L Chloride 110 H (98-107) mmol/L Carbon Dioxide 18 L (22-30) mmol/L BUN 20 H (7-17) mg/dL POC Glucose (mg/dL) 137 H (75-99) mg/dL AST 39 H (14-36) U/L H & H 04/08/19 Range/Units 10:50 Hgb 15.5 (11.4-16.0) gm/dL Hct 47.6 H (34.0-46.0) % Result Diagrams: 04/08/19 10:50 04/08/19 10:50 - Diagnostic results Knee x-ray: image reviewed (Left lateral tibial plateau fracture/ tibial tubercle extension with minimal joint line depression) Knee CT: image reviewed (Mild comminution of the tibial tubercle extension, minimal depression lateral plateau fracture) Assessment and Plan Assessment: Left lateral tibial plateau fracture with tibial tubercle extension History of CVA/coronary artery disease on anticoagulation Plan: At this point I discussed the options with the patient and she does not want to give surgery consideration. We will plan conservative measures with a long leg cast which will be applied in the operating room. I'll also plan on aspirating her hemarthrosis. Time with Patient: Greater than 30
[2019-04-09 11:21] LABS: Glucose,Whole Blood 80 mg/dL (75-99)
[2019-04-09] MEDS ORDERED: LACTATED RINGERS 1,000 ML IV ONE (11:54)
[2019-04-09] MEDS ORDERED: ONDANSETRON 4 MG/2 ML VIAL IVP ONE (12:10)
[2019-04-09] MEDS ORDERED: LIDOCAINE 2% (PF) 20 MG/ML 5 ML VIAL SQ ONE (12:14)
[2019-04-09] MEDS ORDERED: fentaNYL (PF) 50 MCG/ML 2 ML AMP ONE (12:14)
[2019-04-09] MEDS ORDERED: PROPOFOL 10 MG/ML 20 ML VIAL IV ONE (12:14)
[2019-04-09] MEDS ORDERED: MIDAZOLAM 2 MG/2 ML VIAL ONE (12:14)
--- NOTE | 2019-04-09 12:51 | P.OP ---
Date of Procedure: 04/09/19 Preoperative Diagnosis: Left lateral tibial plateau fracture/hemarthrosis Postoperative Diagnosis: Same Procedure(s) Performed: Closed reduction/long leg cast application left tibial plateau fracture, aspiration hemarthrosis left knee. Anesthesia: MAC, local Surgeon: Ricahrd Bonilla Estimated Blood Loss (ml): 0 Pathology: none sent Condition: stable Disposition: PACU Indications for Procedure: The patient's 83-year-old community ambulator who presents after falling injuring her left leg. Upon evaluation she was noted to have a minimally displaced lateral tibial plateau fracture with some extension into the tibial tubercle. He discussion of the risks and benefits of operative intervention versus conservative measures was made with the patient. She opted to proceed with closed reduction and cast application along with knee aspiration. Specific risks of this procedure were discussed to include possible need for subsequent procedures. Informed consent was obtained. Operative Findings: As below Description of Procedure: The patient was brought to the operating room, and after induction of IV sedation I prepped the lateral aspect of the left knee. 2 mL of 2% plain lidocaine was injected. 60 mL of bloody fluid was aspirated. A well padded/molded long-leg cast was then placed with the knee in approximately 15 of flexion. Fluoroscopy was used to check the adequacy of the reduction on the AP and lateral views. It was felt to be adequate. There is minimal joint line depression. There is 2-3 mm displacement of the tibial tubercle. She was then awoken from sedation and transferred to the recovery room in fair condition. There was no blood loss. No complications were incurred.
[2019-04-09] MEDS: CEPHALEXIN 500 MG CAP PO SCH ×2 (13:29→21:33)
--- NOTE | 2019-04-09 15:14 | XR ---
Fluoroscopy INDICATION: Pain FINDINGS: Fluoroscopy time: 4 seconds. Images obtained: 4. IMPRESSIONS: 1. Documentation of fluoroscopy.
[2019-04-09 16:24] LABS: Glucose,Whole Blood 125 mg/dL (75-99)
[2019-04-09 20:50] LABS: Glucose,Whole Blood 107 mg/dL (75-99)
[2019-04-09] MEDS: LISINOPRIL 10 MG TAB PO SCH (21:33)
[2019-04-09] MEDS: LEVOTHYROXINE 50 MCG TAB PO SCH (21:33)
[2019-04-09] MEDS: DONEPEZIL 5 MG TAB PO SCH (21:33)
[2019-04-09] MEDS: METOPROLOL SUCCINATE (ER) 25 MG TAB.ER.24H PO SCH (21:33)
[2019-04-09] MEDS: CLOPIDOGREL 75 MG TAB PO SCH (21:33)
[2019-04-09] MEDS: MORPHINE SULFATE 4 MG/ML SYRINGE IVP PRN (21:34)
--- NOTE | 2019-04-09 22:33 | P.HPIM ---
History of Present Illness H&P Date: 04/09/19 Chief Complaint: fall Pauline Loaiza is an 83 yo F with PMH CAD with pacemaker, COPD, hx UT, CVA, T2DM, HTN, HLD who presented to [facility] ED after a fall at home. She states she was cleaning when she tripped over a rug and fell foward hitting her face. She did not lose consciousness. Pt states she pulled herself up and called for help. She denies any associated chest pain, shortness of breath, dizziness or headache. In the ED vitals stable, labs unremarkable. CT shows L tibial plateau fracture and mild fracturing of nasal bones. Currently pt complains of L knee pain with movement and R arm tingling near her IV site. She has not been able to bear weight since her fall. Review of Systems All systems: negative Constitutional: Denies chills, Denies fever Eyes: denies blurred vision, denies pain Ears, nose, mouth and throat: Denies headache, Denies sore throat Cardiovascular: Denies chest pain, Denies shortness of breath Respiratory: Denies cough Gastrointestinal: Denies abdominal pain, Denies diarrhea, Denies nausea, Denies vomiting Genitourinary: Denies dysuria, Denies hematuria Musculoskeletal: Reports as per HPI, Reports fractures, Reports gait dysfunction, Reports limitation of motion, Denies myalgias Integumentary: Denies pruritus, Denies rash Neurological: Denies numbness, Denies weakness Psychiatric: Denies anxiety, Denies depression Endocrine: Denies fatigue, Denies weight change Past Medical History Past Medical History: Coronary Artery Disease (CAD), Chest Pain / Angina, COPD, CVA/TIA, Diabetes Mellitus, Hyperlipidemia, Liver Disease, Myocardial Infarction ([place]), Thyroid Disorder Additional Past Medical History / Comment(s): History of borderline diabetes, CVA, hypothyroidism and COPD. Patient noncompliant with medications. Last Myocardial Infarction Date:: 07/06/2015 History of Any Multi-Drug Resistant Organisms: None Reported Past Surgical History: Bowel Resection, Heart Catheterization With Stent, Pacemaker Past Anesthesia/Blood Transfusion Reactions: No Reported Reaction Date of Last Stent Placement:: 2014 Type of Cardiac Device: Unknown Device Placement Date:: unknown Past Psychological History: Unable to Obtain Additional Psychological History / Comment(s): per family Jolly "patient has bouts of paranoia" Parviz "she gets fixated on things & there is no changing her mind" Smoking Status: Current some day smoker Past Alcohol Use History: None Reported Past Drug Use History: None Reported - Past Family History Mother Family Medical History: Congestive Heart Failure (CHF) Medications and Allergies Home Medications Medication Instructions Recorded Confirmed Type Aspirin 81 mg PO DAILY PRN 07/06/15 04/08/19 History Clopidogrel [Plavix] 75 mg PO HS 10/10/16 04/08/19 History Ergocalciferol (Vitamin D2) 50,000 unit PO RIVERA 10/10/16 04/08/19 History [Vitamin D2] Metoprolol Succinate (ER) [Toprol 25 mg PO HS 10/10/16 04/08/19 History XL] Levothyroxine Sodium [Synthroid] 50 mcg PO HS 01/24/17 04/08/19 History Atorvastatin [Lipitor] 20 mg PO SUWE 03/21/19 04/08/19 History Donepezil [Aricept] 5 mg PO HS 03/21/19 04/08/19 History Esomeprazole Magnesium [NexIUM] 20 mg PO HS 03/21/19 04/08/19 History Lisinopril [Zestril] 10 mg PO HS 03/21/19 04/08/19 History Rivaroxaban [Xarelto] 7.5 mg PO HS 03/21/19 04/08/19 History Allergies Allergy/AdvReac Type Severity Reaction Status Date / Time amoxicillin trihydrate Allergy Unknown Verified 04/09/19 12:07 [From Augmentin] potassium clavulanate Allergy Unknown Verified 04/09/19 12:07 [From Augmentin] Physical Exam Vitals: Vital Signs Temp Pulse Pulse Pulse Resp BP Pulse Ox 04/09/19 19:15 98.2 F 72 18 139/74 93 L 04/09/19 14:25 98.2 F 70 12 133/66 91 L 04/09/19 13:29 62 14 155/75 94 L 04/09/19 13:18 69 16 151/79 98 04/09/19 13:03 69 14 137/60 98 04/09/19 12:52 97.7 F 69 12 131/58 93 L 04/09/19 12:05 97.8 F 70 16 164/73 95 04/09/19 08:01 96 04/09/19 06:50 98.9 F 70 155/87 97 04/09/19 03:11 16 04/09/19 01:45 98.0 F 70 16 147/80 95 04/09/19 00:00 18 Intake and Output 04/09/19 04/09/19 04/09/19 06:59 14:59 22:59 Intake Total 600 Balance 600 Intake: IV 600 Other: Voiding Method Bedpan Diaper # Voids 1 1 General: well nourished, well developed, NAD. Vitals reviewed Eyes: PERRL, EOMI, conjunctiva normal HENT: normocephalic, mucus membranes moist. Periorbital bruising Neck: supple, no JVD Lungs: normal respiratory effort, no wheezes or rales CV: Regular rate and rhythm, systolic murmur. Peripheral pulses 1+ Abdomen: soft, nondistended, no organomegaly Lymph: no cervical or axillary LAD Ext: LLE in immobilizer. Ecchymosis noted. No distal edema. Str 3/5 LLE; 5/5 RLE Skin: warm and dry. Neuro: A&Ox3, normal mood and affect. Results CBC & Chem 7: 04/08/19 10:50 04/08/19 10:50 Labs: Abnormal Lab Results - Last 24 Hours (Table) 04/09/19 04/09/19 Range/Units 16:20 20:38 POC Glucose (mg/dL) 125 H 107 H (75-99) mg/dL Thrombosis Risk Factor Assmnt - Choose All That Apply Each Factor Represents 1 point: Medical pt on bed rest Each Risk Factor Represents 3 Points: Age 75 years or older Each Risk Factor Represents 5 Points: Hip, pelvis, or leg fracture (< 1 month), Multiple trauma (< 1 month) Thrombosis Risk Factor Assessment Total Risk Factor Score: 14 Thrombosis Risk Factor Assessment Level: High Risk Assessment and Plan (1) Fracture of left tibial plateau Current Visit: Yes Status: Acute Code(s): S82.142A - DISPLACED BICONDYLAR FRACTURE OF LEFT TIBIA, INIT SNOMED Code(s): 889013035 (2) Fall Current Visit: Yes Status: Acute Code(s): W19.XXXA - UNSPECIFIED FALL, INITIAL ENCOUNTER SNOMED Code(s): 4073931 (3) Nasal contusion Current Visit: Yes Status: Acute Code(s): S00.33XA - CONTUSION OF NOSE, INITIAL ENCOUNTER SNOMED Code(s): 86625155 (4) Nasal fracture Current Visit: Yes Status: Acute Code(s): S02.2XXA - FRACTURE OF NASAL BONES, INIT ENCNTR FOR CLOSED FRACTURE SNOMED Code(s): 782555971 (5) Hypothyroid Current Visit: No Status: Acute Code(s): E03.9 - HYPOTHYROIDISM, UNSPECIFIED SNOMED Code(s): 99511795 (6) Pacemaker Current Visit: No Status: Acute Code(s): Z95.0 - PRESENCE OF CARDIAC PACEMAKER SNOMED Code(s): 242609076 (7) Presence of stent in LAD coronary artery Current Visit: No Status: Acute Code(s): Z95.5 - PRESENCE OF CORONARY ANGIOPLASTY IMPLANT AND GRAFT SNOMED Code(s): 939459910214443 (8) Impaired mobility and activities of daily living Current Visit: Yes Status: Acute Code(s): Z74.09 - OTHER REDUCED MOBILITY SNOMED Code(s): 795728594 (9) COPD (chronic obstructive pulmonary disease) Current Visit: Yes Status: Acute Code(s): J44.9 - CHRONIC OBSTRUCTIVE PULMONARY DISEASE, UNSPECIFIED SNOMED Code(s): 98134007 (10) Third degree heart block Current Visit: No Status: Acute Code(s): I44.2 - ATRIOVENTRICULAR BLOCK, COMPLETE SNOMED Code(s): 99301038 Plan: 1. Fall. L tibial plateau fracture. Ortho consulted. Pt casted. PT and OT consulted. manager on board. Plan for dc to [facility] on Friday 2. Nasal contusion. She will follow up with ENT outpatient 3. CAD. Hx pacemaker. Hx UT. Continue ASA, plavix, metoprolol, xarelto 4. Hypothyroidism. Continue synthroid 5. Chalazion of L eyelid. Continue keflex DVT prophylaxis xarelto GI prophylaxis protonix
[2019-04-10] MEDS: ACETAMINOPHEN TAB 325 MG TAB PO SCH ×5 (01:04→23:22)
[2019-04-10] MEDS: RIVAROXABAN 15 MG TAB PO SCH ×2 (01:04→20:11)
[2019-04-10] MEDS: MORPHINE SULFATE 4 MG/ML SYRINGE IVP PRN (01:51)
[2019-04-10] MEDS: SODIUM CHLORIDE 0.9% 1,000 ML IV SCH ×2 (06:25→20:59)
[2019-04-10 07:13] LABS: Glucose,Whole Blood 88 mg/dL (75-99)
[2019-04-10] MEDS: CEPHALEXIN 500 MG CAP PO SCH ×2 (09:49→20:10)
--- NOTE | 2019-04-10 12:35 | P.PN ---
Subjective Progress Note Date: 04/10/19 Pauline Loaiza is an 83 yo F with PMH CAD with pacemaker, COPD, hx CA, CVA, T2DM, HTN, HLD who presented to [facility] ED after a fall at home. She states she was cleaning when she tripped over a rug and fell foward hitting her face. She did not lose consciousness. Pt states she pulled herself up and called for help. She denies any associated chest pain, shortness of breath, dizziness or headache. In the ED vitals stable, labs unremarkable. CT shows L tibial plateau fracture and mild fracturing of nasal bones. Currently pt complains of L knee pain with movement and R arm tingling near her IV site. She has not been able to bear weight since her fall. 04/10. Pt feeling better today after arthrocentesis. Working with PT. Syte improved. Denies chest pain, shortness of breath. Objective - Vital Signs Vital signs: Vital Signs Temp 98.2 F 04/10/19 07:05 Pulse 70 04/10/19 01:54 Resp 16 04/10/19 07:05 BP 141/58 04/10/19 07:05 Pulse Ox 99 04/10/19 07:05 Intake & Output 04/09/19 04/10/19 04/10/19 18:59 06:59 18:59 Intake Total 600 Output Total 400 Balance 600 -400 Intake: IV 600 Output: Urine 400 Other: Voiding Method Bedpan # Voids 2 2 - Exam Gen: well developed, facial bruising, NAD Lungs: normal respiratory effort, no wheezes or rales CV: Regular rate and rhythm, systolic murmur. Peripheral pulses 2+ Abdomen: soft, nondistended, no organomegaly Ext: LLE in cast - Labs CBC & Chem 7: 04/08/19 10:50 04/08/19 10:50 Labs: Abnormal Lab Results - Last 24 Hours (Table) 04/09/19 04/09/19 Range/Units 16:20 20:38 POC Glucose (mg/dL) 125 H 107 H (75-99) mg/dL Assessment and Plan (1) Fracture of left tibial plateau Current Visit: Yes Status: Acute Code(s): S82.142A - DISPLACED BICONDYLAR FRACTURE OF LEFT TIBIA, INIT SNOMED Code(s): 376807870 (2) Fall Current Visit: Yes Status: Acute Code(s): W19.XXXA - UNSPECIFIED FALL, INITIAL ENCOUNTER SNOMED Code(s): 9760942 (3) Nasal contusion Current Visit: Yes Status: Acute Code(s): S00.33XA - CONTUSION OF NOSE, INITIAL ENCOUNTER SNOMED Code(s): 08890671 (4) Nasal fracture Current Visit: Yes Status: Acute Code(s): S02.2XXA - FRACTURE OF NASAL BONES, INIT ENCNTR FOR CLOSED FRACTURE SNOMED Code(s): 326419534 (5) Hypothyroid Current Visit: No Status: Acute Code(s): E03.9 - HYPOTHYROIDISM, UNSPECIFIED SNOMED Code(s): 40010886 (6) Pacemaker Current Visit: No Status: Acute Code(s): Z95.0 - PRESENCE OF CARDIAC PACEMAKER SNOMED Code(s): 884936496 (7) Presence of stent in LAD coronary artery Current Visit: No Status: Acute Code(s): Z95.5 - PRESENCE OF CORONARY ANGIOPLASTY IMPLANT AND GRAFT SNOMED Code(s): 261218618267406 (8) Impaired mobility and activities of daily living Current Visit: Yes Status: Acute Code(s): Z74.09 - OTHER REDUCED MOBILITY SNOMED Code(s): 331784592 (9) COPD (chronic obstructive pulmonary disease) Current Visit: Yes Status: Acute Code(s): J44.9 - CHRONIC OBSTRUCTIVE PULMONARY DISEASE, UNSPECIFIED SNOMED Code(s): 87860181 (10) Third degree heart block Current Visit: No Status: Acute Code(s): I44.2 - ATRIOVENTRICULAR BLOCK, COMPLETE SNOMED Code(s): 65427967 Plan: 1. Fall. L tibial plateau fracture. Ortho consulted. Pt casted. PT and OT consulted. production quality manager on board. Plan for dc to [facility] on Friday 2. Nasal contusion. She will follow up with ENT outpatient 3. CAD. Hx pacemaker. Hx CA. Continue ASA, plavix, metoprolol, xarelto 4. Hypothyroidism. Continue synthroid 5. Chalazion of L eyelid. Continue keflex DVT prophylaxis xarelto GI prophylaxis protonix
[2019-04-10] MEDS: LEVOTHYROXINE 50 MCG TAB PO SCH (20:10)
[2019-04-10] MEDS: CLOPIDOGREL 75 MG TAB PO SCH (20:10)
[2019-04-10] MEDS: DONEPEZIL 5 MG TAB PO SCH (20:10)
[2019-04-10] MEDS: PANTOPRAZOLE 40 MG TABLET PO SCH (20:11)
[2019-04-10] MEDS: LISINOPRIL 10 MG TAB PO SCH (20:11)
[2019-04-10] MEDS: METOPROLOL SUCCINATE (ER) 25 MG TAB.ER.24H PO SCH (20:11)
[2019-04-11] MEDS: ACETAMINOPHEN TAB 325 MG TAB PO SCH ×3 (05:48→19:10)
[2019-04-11] MEDS: CEPHALEXIN 500 MG CAP PO SCH ×2 (09:25→19:47)
[2019-04-11] MEDS: SODIUM CHLORIDE 0.9% 1,000 ML IV SCH (10:18)
[2019-04-11] MEDS: CLOPIDOGREL 75 MG TAB PO SCH (19:47)
[2019-04-11] MEDS: LEVOTHYROXINE 50 MCG TAB PO SCH (19:48)
[2019-04-11] MEDS: LISINOPRIL 10 MG TAB PO SCH (19:48)
[2019-04-11] MEDS: PANTOPRAZOLE 40 MG TABLET PO SCH (19:48)
[2019-04-11] MEDS: METOPROLOL SUCCINATE (ER) 25 MG TAB.ER.24H PO SCH (19:48)
[2019-04-11] MEDS: RIVAROXABAN 15 MG TAB PO SCH (19:48)
[2019-04-11] MEDS: DONEPEZIL 5 MG TAB PO SCH (19:55)
[2019-04-11] MEDS ORDERED: SENNOSIDES 8.6 MG TAB PO SCH (21:00)
[2019-04-12] MEDS: ACETAMINOPHEN TAB 325 MG TAB PO SCH ×3 (01:42→12:15)
[2019-04-12 02:19] VITALS: RESP 19; TEMP 97.6
[2019-04-12 06:54] VITALS: BP 176/79; PULSE 80
[2019-04-12] MEDS: CEPHALEXIN 500 MG CAP PO SCH (08:59)
--- NOTE | 2019-04-12 09:01 | P.PN ---
Subjective Progress Note Date: 04/11/19 Pauline Loaiza is an 83 yo F with PMH CAD with pacemaker, COPD, hx [place], CVA, T2DM, HTN, HLD who presented to [facility] ED after a fall at home. She states she was cleaning when she tripped over a rug and fell foward hitting her face. She did not lose consciousness. Pt states she pulled herself up and called for help. She denies any associated chest pain, shortness of breath, dizziness or headache. In the ED vitals stable, labs unremarkable. CT shows L tibial plateau fracture and mild fracturing of nasal bones. Currently pt complains of L knee pain with movement and R arm tingling near her IV site. She has not been able to bear weight since her fall. 04/10. Pt feeling better today after arthrocentesis. Working with PT. Syte improved. Denies chest pain, shortness of breath. 04/11. She continues to feel her leg pain is improved and was able to bear weight briefly yesterday. no chest pain, fever, chills, shortness of breath Objective - Vital Signs Vital signs: Vital Signs Temp 97.6 F 04/12/19 06:52 Pulse 80 04/12/19 06:52 Resp 19 04/12/19 01:05 BP 176/79 04/12/19 06:52 Pulse Ox 96 04/12/19 06:52 Intake & Output 04/11/19 04/12/19 04/12/19 18:59 06:59 18:59 Intake Total 280 Balance 280 Intake: Intake, IV Titration 280 Amount Sodium Chloride 0.9% 1, 280 000 ml @ 80 mls/hr IV . [id number] [facility] Rx#:[id number] Other: Voiding Method Bedpan # Voids 1 - Exam Gen: well developed, facial bruising, NAD Lungs: normal respiratory effort, no wheezes or rales CV: Regular rate and rhythm, systolic murmur. Peripheral pulses 2+ Abdomen: soft, nondistended, no organomegaly Ext: LLE in cast - Labs CBC & Chem 7: 04/08/19 10:50 04/08/19 10:50 Assessment and Plan (1) Fracture of left tibial plateau Current Visit: Yes Status: Acute Code(s): S82.142A - DISPLACED BICONDYLAR FRACTURE OF LEFT TIBIA, INIT SNOMED Code(s): 880084529 (2) Fall Current Visit: Yes Status: Acute Code(s): W19.XXXA - UNSPECIFIED FALL, INITIAL ENCOUNTER SNOMED Code(s): 8142995 (3) Nasal contusion Current Visit: Yes Status: Acute Code(s): S00.33XA - CONTUSION OF NOSE, INITIAL ENCOUNTER SNOMED Code(s): 40542281 (4) Nasal fracture Current Visit: Yes Status: Acute Code(s): S02.2XXA - FRACTURE OF NASAL BONES, INIT ENCNTR FOR CLOSED FRACTURE SNOMED Code(s): 692007078 (5) Hypothyroid Current Visit: No Status: Acute Code(s): E03.9 - HYPOTHYROIDISM, UNSPECIFIED SNOMED Code(s): 36795897 (6) Pacemaker Current Visit: No Status: Acute Code(s): Z95.0 - PRESENCE OF CARDIAC P ACEMAKER SNOMED Code(s): 986887169 (7) Presence of stent in LAD coronary artery Current Visit: No Status: Acute Code(s): Z95.5 - PRESENCE OF CORONARY ANGIOPLASTY IMPLANT AND GRAFT SNOMED Code(s): 087209292527377 (8) Impaired mobility and activities of daily living Current Visit: Yes Status: Acute Code(s): Z74.09 - OTHER REDUCED MOBILITY SNOMED Code(s): 350118420 (9) COPD (chronic obstructive pulmonary disease) Current Visit: Yes Status: Acute Code(s): J44.9 - CHRONIC OBSTRUCTIVE PULMONARY DISEASE, UNSPECIFIED SNOMED Code(s): 95695528 (10) Third degree heart block Current Visit: No Status: Acute Code(s): I44.2 - ATRIOVENTRICULAR BLOCK, COMPLETE SNOMED Code(s): 39281537 Plan: 1. Fall. L tibial plateau fracture. S/p casting per ortho. PT and OT consulted. manager new product on board. Plan for [facility] 2. Nasal contusion. She will follow up with ENT outpatient 3. CAD. Hx pacemaker. Hx OR. Continue ASA, plavix, metoprolol, xarelto 4. Hypothyroidism. Continue synthroid 5. Chalazion of L eyelid. Continue keflex DVT prophylaxis xarelto GI prophylaxis protonix
--- NOTE | 2019-04-12 09:08 | P.DS ---
Providers Date of admission: 04/09/19 12:57 Expected date of discharge: 04/12/19 Attending physician: Marcus Loaiza MD Consults: 04/08/19 13:39 Consult Physician Routine Consulting Provider: Keanu Moctezuma Consult Reason/Comments: nasal fracture Do you want consulting provider notified?: Yes Consult Physician Routine Consulting Provider: Sergei Mi Consult Reason/Comments: tibial plateau fracture Do you want consulting provider notified?: Yes Primary care physician: Jolly Loaiza - Discharge Diagnosis(es) (1) Fracture of left tibial plateau Current Visit: Yes Status: Acute (2) Fall Current Visit: Yes Status: Acute (3) Nasal contusion Current Visit: Yes Status: Acute (4) Nasal fracture Current Visit: Yes Status: Acute (5) Hypothyroid Current Visit: No Status: Acute (6) Pacemaker Current Visit: No Status: Acute (7) Presence of stent in LAD coronary artery Current Visit: No Status: Acute (8) Impaired mobility and activities of daily living Current Visit: Yes Status: Acute (9) COPD (chronic obstructive pulmonary disease) Current Visit: Yes Status: Acute (10) Third degree heart block Current Visit: No Status: Acute Hospital Course: Pauline Loaiza is an 83 yo F with PMH CAD with pacemaker, COPD, hx ID, CVA, T2DM, HTN, HLD who presented to [facility] ED after a fall at home. She states she was cleaning when she tripped over a rug and fell foward hitting her face. She did not lose consciousness. Pt states she pulled herself up and called for help. She denies any associated chest pain, shortness of breath, dizziness or headache. In the ED vitals stable, labs unremarkable. CT shows L tibial plateau fracture and mild fracturing of nasal bones. Currently pt complains of L knee pain with movement and R arm tingling near her IV site. She has not been able to bear weight since her fall. 04/10. Pt feeling better today after arthrocentesis. Working with PT. Syte improved. Denies chest pain, shortness of breath. 04/11. She continues to feel her leg pain is improved and was able to bear weight briefly yesterday. no chest pain, fever, chills, shortness of breath 04/12. Continued improvement in leg pain, working with PT, no concerns. On day of discharge pt's vitals and labs were stable. She will continue to work with PT/OT and will follow up with PCP and ENT as an outpatient. Discharge exam: Gen: well developed, facial bruising, NAD HEENT: mucus membranes moist, periorbital ecchymosis CV: RRR, systolic murmur Lungs: clear throughout Ext: LLE in cast, distal pulses 2+ no edema Neuro: alert and oriented x3 Patient Condition at Discharge: Fair Plan - Discharge Summary New Discharge Prescriptions: New Cephalexin [Keflex] 500 mg PO BID 3 Days #6 cap HYDROcodone/APAP 5-325MG [[place] 5-325] 1 each PO Q6HR PRN #20 tab PRN Reason: Severe Pain Sennosides 8.6 mg PO QAM #30 tablet Continue Aspirin 81 mg PO DAILY PRN PRN Reason: Chest Pain Metoprolol Succinate (ER) [Toprol XL] 25 mg PO HS Ergocalciferol (Vitamin D2) [Vitamin D2] 50,000 unit PO RIVERA Clopidogrel [Plavix] 75 mg PO HS Levothyroxine Sodium [Synthroid] 50 mcg PO HS Esomeprazole Magnesium [NexIUM] 20 mg PO HS Donepezil [Aricept] 5 mg PO HS Lisinopril [Zestril] 10 mg PO HS Atorvastatin [Lipitor] 20 mg PO SUWE Rivaroxaban [Xarelto] 7.5 mg PO HS Discharge Medication List Aspirin 81 mg PO DAILY PRN 07/06/15 [History] Clopidogrel [Plavix] 75 mg PO HS 10/10/16 [History] Ergocalciferol (Vitamin D2) [Vitamin D2] 50,000 unit PO RIVERA 10/10/16 [History] Metoprolol Succinate (ER) [Toprol XL] 25 mg PO HS 10/10/16 [History] Levothyroxine Sodium [Synthroid] 50 mcg PO HS 01/24/17 [History] Atorvastatin [Lipitor] 20 mg PO SUWE 03/21/19 [History] Donepezil [Aricept] 5 mg PO HS 03/21/19 [History] Esomeprazole Magnesium [NexIUM] 20 mg PO HS 03/21/19 [History] Lisinopril [Zestril] 10 mg PO HS 03/21/19 [History] Rivaroxaban [Xarelto] 7.5 mg PO HS 03/21/19 [History] Cephalexin [Keflex] 500 mg PO BID 3 Days #6 cap 04/12/19 [Rx] HYDROcodone/APAP 5-325MG [[place] 5-325] 1 each PO Q6HR PRN #20 tab 04/12/19 [Rx] Sennosides 8.6 mg PO QAM #30 tablet 04/12/19 [Rx] Follow up Appointment(s)/Referral(s): Jolly Loaiza DO [Primary Care Provider] - 1-2 days Activity/Diet/Wound Care/Special Instructions: [place] Discharge Disposition: TRANSFER TO SNF/ECF
== END 2019-04-12 13:22 | DRG 563 ==
LOC: EC 09:44 → 4SSUR 14:02 → OBSVTOIN 04-09 12:57
PROVIDERS: ADMIT Family Medicine; ATTEND Family Medicine
PROC: 0S9D3ZZ Drainage of Left Knee Joint, Percutaneous Approach (ICD-10-PCS; 2019-04-09)
PROC: 0QSHXZZ Reposition Left Tibia, External Approach (ICD-10-PCS; principal; 2019-04-09 08:50)
DX: S82.142A Displaced bicondylar fracture of left tibia, initial encounter for closed fracture (principal); M25.062 Hemarthrosis, left knee; S82.152A Displaced fracture of left tibial tuberosity, initial encounter for closed fracture; J44.9 Chronic obstructive pulmonary disease, unspecified; E11.9 Type 2 diabetes mellitus without complications; E03.9 Hypothyroidism, unspecified; E78.5 Hyperlipidemia, unspecified; F17.200 Nicotine dependence, unspecified, uncomplicated; H00.16 Chalazion left eye, unspecified eyelid; I10 Essential (primary) hypertension; I25.10 Atherosclerotic heart disease of native coronary artery without angina pectoris; I25.2 Old myocardial infarction; S02.2XXA Fracture of nasal bones, initial encounter for closed fracture; R01.1 Cardiac murmur, unspecified; R26.9 Unspecified abnormalities of gait and mobility; M54.2 Cervicalgia; Z79.01 Long term (current) use of anticoagulants; Z79.82 Long term (current) use of aspirin; Z79.890 Hormone replacement therapy; Z79.02 Long term (current) use of antithrombotics/antiplatelets; Z79.899 Other long term (current) drug therapy; Z95.0 Presence of cardiac pacemaker; Z91.14 Patient's other noncompliance with medication regimen; Z86.73 Personal history of transient ischemic attack (TIA), and cerebral infarction without residual deficits; Z95.5 Presence of coronary angioplasty implant and graft; Z88.0 Allergy status to penicillin; Z82.49 Family history of ischemic heart disease and other diseases of the circulatory system; W01.0XXA Fall on same level from slipping, tripping and stumbling without subsequent striking against object, initial encounter; Y92.009 Unspecified place in unspecified non-institutional (private) residence as the place of occurrence of the external cause
CPT/HCPCS: 36415; 70450; 72125; 72170; 80053; 82550; 83735; 85025; 94760; 96374; 99285

== ENCOUNTER 2020-02-20 13:40 | Inpatient (IN) | payer MEDICARE, BC ==
[2020-02-20] MEDS ORDERED: IPRATROPIUM-ALBUTEROL 3 ML NEB INHALATION STA (13:47)
[2020-02-20] MEDS ORDERED: SODIUM CHLORIDE 0.9% 1,000 ML IV STA (13:47)
--- NOTE | 2020-02-20 13:54 | ED ---
SOB HPI - General Stated Complaint: Recheck Time Seen by Provider: 02/20/20 13:40 Source: EMS, RN notes reviewed Mode of arrival: EMS - History of Present Illness Initial Comments: This 84-year-old female history of CHF COPD and dementia who was brought in by EMS from her longterm with complaints of shortness of breath that apparently started today. She then she was started on azithromycin and steroids 3 days ago she was found have a pulse ox of 91% at the longterm and 85% on room air per paramedics. She had an x-ray of January 2017 with apparently normal and had a covid test on February 14. Complaint: shortness of breath - Related Data Home Medications Medication Instructions Recorded Confirmed Aspirin 81 mg PO DAILY PRN 07/06/15 04/08/19 Clopidogrel [Plavix] 75 mg PO HS 10/10/16 04/08/19 Ergocalciferol (Vitamin D2) 50,000 unit PO RIVERA 10/10/16 04/08/19 [Vitamin D2] Metoprolol Succinate (ER) [Toprol 25 mg PO HS 10/10/16 04/08/19 XL] Levothyroxine Sodium [Synthroid] 50 mcg PO HS 01/24/17 04/08/19 Atorvastatin [Lipitor] 20 mg PO SUWE 03/21/19 04/08/19 Donepezil [Aricept] 5 mg PO HS 03/21/19 04/08/19 Esomeprazole Magnesium [NexIUM] 20 mg PO HS 03/21/19 04/08/19 Rivaroxaban [Xarelto] 7.5 mg PO HS 03/21/19 04/08/19 lisinopriL [Zestril] 10 mg PO HS 03/21/19 04/08/19 Previous Rx's Medication Instructions Recorded Cephalexin [Keflex] 500 mg PO BID 3 Days #6 cap 04/12/19 HYDROcodone/APAP 5-325MG [[place] 1 each PO Q6HR PRN #20 tab 04/12/19 5-325] Sennosides 8.6 mg PO QAM #30 tablet 04/12/19 Allergies Allergy/AdvReac Type Severity Reaction Status Date / Time amoxicillin trihydrate Allergy Unknown Verified 02/20/20 15:26 [From Augmentin] potassium clavulanate Allergy Unknown Verified 02/20/20 15:26 [From Augmentin] Review of Systems ROS Statement: Those systems with pertinent positive or pertinent negative responses have been documented in the HPI. ROS Other: All systems not noted in ROS Statement are negative. Limitations: ROS unobtainable due to patients medical condition Past Medical History Past Medical History: Coronary Artery Disease (CAD), Chest Pain / Angina, COPD, CVA/TIA, Diabetes Mellitus, Hyperlipidemia, Liver Disease, Myocardial Infarction ([place]), Thyroid Disorder Additional Past Medical History / Comment(s): History of borderline diabetes, CVA, hypothyroidism and COPD. Patient noncompliant with medications. Last Myocardial Infarction Date:: 07/06/2015 History of Any Multi-Drug Resistant Organisms: None Reported Past Surgical History: Bowel Resection, Heart Catheterization With Stent, Pacemaker Past Anesthesia/Blood Transfusion Reactions: No Reported Reaction Date of Last Stent Placement:: 2014 Type of Cardiac Device: Unknown Device Placement Date:: unknown Past Psychological History: Unable to Obtain Additional Psychological History / Comment(s): per family Jolly "patient has bouts of paranoia" Parviz "she gets fixated on things & there is no changing her mind" Past Alcohol Use History: None Reported Past Drug Use History: None Reported - Past Family History Mother Family Medical History: Congestive Heart Failure (CHF) General Exam - General Exam Comments Initial Comments: This is a well-developed sec appearing female who is awake alert in apparent respiratory distress with moaning Limitations: altered mental status, physical limitation General appearance: alert, in distress Head exam: Present: atraumatic, normocephalic, normal inspection Eye exam: Present: normal appearance, PERRL, EOMI. Absent: scleral icterus, conjunctival injection, periorbital swelling ENT exam: Present: normal exam, mucous membranes moist Neck exam: Present: normal inspection. Absent: tenderness, meningismus, lymphadenopathy Respiratory exam: Present: wheezes, accessory muscle use, decreased breath sounds. Absent: respiratory distress, rales, rhonchi, stridor Cardiovascular Exam: Present: regular rate, normal rhythm, normal heart sounds. Absent: systolic murmur, diastolic murmur, rubs, gallop, clicks GI/Abdominal exam: Present: soft, normal bowel sounds. Absent: distended, tenderness, guarding, rebound, rigid Extremities exam: Present: normal inspection, full ROM, normal capillary refill. Absent: tenderness, pedal edema, joint swelling, calf tenderness Back exam: Present: normal inspection Neurological exam: Present: alert, oriented X3, CN II-XII intact Psychiatric exam: Present: normal affect, normal mood Skin exam: Present: warm, dry, intact, normal color. Absent: rash Course Vital Signs 02/20/20 02/20/20 02/20/20 13:42 13:46 13:50 Temperature 97.5 F L Pulse Rate 68 Respiratory 26 H Rate Blood Pressure 75/53 68/50 O2 Sat by Pulse 99 73 L 100 Oximetry 02/20/20 02/20/20 02/20/20 13:51 14:00 14:10 Temperature Pulse Rate 70 Respiratory 22 70 H Rate Blood Pressure 76/59 75/53 84/48 O2 Sat by Pulse 96 Oximetry 02/20/20 02/20/20 02/20/20 14:14 14:20 14:26 Temperature Pulse Rate 69 70 Respiratory 22 68 H Rate Blood Pressure 84/48 84/48 O2 Sat by Pulse 99 96 Oximetry 02/20/20 02/20/20 02/20/20 14:30 14:35 14:40 Temperature Pulse Rate 70 70 70 Respiratory 69 H 17 Rate Blood Pressure 81/53 88/64 O2 Sat by Pulse 98 97 Oximetry 02/20/20 02/20/20 14:50 15:00 Temperature Pulse Rate 70 70 Respiratory 17 15 Rate Blood Pressure 80/58 80/58 O2 Sat by Pulse 97 98 Oximetry - Reevaluation(s) Reevaluation #1: 02/20/20 15:39 Focused exam: Patient did respond to IV fluids and blood pressure is improved. Breath sounds are still diminished bilaterally with rhonchorous-type cough still noted. Patient is somewhat more responsive however. Medical Decision Making - Medical Decision Making I did discuss the case with Dr. Huang who is covering Dr. Loaiza. Patient will be admitted CT chest we ordered. IV antibiotics were ordered. Sepsis is considered the patient is hypotensive no evidence dehydration. Covid testing is pending. The blood pressure has improved so further bolus will be withheld at this time this is also due to her history of CHF - Lab Data Result diagrams: 02/20/20 14:04 02/20/20 14:04 Lab Results 02/20/20 02/20/20 02/20/20 Range/Units 14:04 14:04 14:04 WBC 10.8 H (3.8-10.6) k/uL RBC 4.36 (3.80-5.40) m/uL Hgb 12.2 (11.4-16.0) gm/dL Hct 40.5 (34.0-46.0) % MCV 92.9 (80.0-100.0) fL MCH 27.9 (25.0-35.0) pg MCHC 30.0 L (31.0-37.0) g/dL RDW 15.2 (11.5-15.5) % Plt Count 324 (150-450) k/uL Neutrophils % 80 % Lymphocytes % 13 % Monocytes % 5 % Eosinophils % 1 % Basophils % 0 % Neutrophils # 8.6 H (1.3-7.7) k/uL Lymphocytes # 1.4 (1.0-4.8) k/uL Monocytes # 0.6 (0-1.0) k/uL Eosinophils # 0.1 (0-0.7) k/uL Basophils # 0.0 (0-0.2) k/uL Hypochromasia Moderate PT 12.3 H (9.0-12.0) sec INR 1.2 H (<1.2) APTT 22.9 (22.0-30.0) sec D-Dimer 0.97 H (<0.60) mg/L FEU Sodium 141 (137-145) mmol/L Potassium 3.6 (3.5-5.1) mmol/L Chloride 106 (98-107) mmol/L Carbon Dioxide 27 (22-30) mmol/L Anion Gap 8 mmol/L BUN 28 H (7-17) mg/dL Creatinine 0.73 (0.52-1.04) mg/dL Est GFR (CKD-EPI)AfAm 87 (>60 ml/min/1.73 sqM) Est GFR (CKD-EPI)NonAf 75 (>60 ml/min/1.73 sqM) Glucose 113 H (74-99) mg/dL Plasma Lactic Acid Rajinder (0.7-2.0) mmol/L Calcium 9.3 (8.4-10.2) mg/dL Magnesium 2.1 (1.6-2.3) mg/dL Total Bilirubin 0.5 (0.2-1.3) mg/dL AST 56 H (14-36) U/L ALT 44 H (4-34) U/L Alkaline Phosphatase 77 (38-126) U/L Lactate Dehydrogenase 535 (313-618) U/L Creatine Kinase 34 (30-135) U/L Troponin I (0.000-0.034) ng/mL C-Reactive Protein 19.7 H (<10.0) mg/L NT-Pro-B Natriuret Pep pg/mL Total Protein 6.8 (6.3-8.2) g/dL Albumin 3.6 (3.5-5.0) g/dL 02/20/20 02/20/20 02/20/20 Range/Units 14:04 14:04 14:04 WBC (3.8-10.6) k/uL RBC (3.80-5.40) m/uL Hgb (11.4-16.0) gm/dL Hct (34.0-46.0) % MCV (80.0-100.0) fL MCH (25.0-35.0) pg MCHC (31.0-37.0) g/dL RDW (11.5-15.5) % Plt Count (150-450) k/uL Neutrophils % % Lymphocytes % % Monocytes % % Eosinophils % % Basophils % % Neutrophils # (1.3-7.7) k/uL Lymphocytes # (1.0-4.8) k/uL Monocytes # (0-1.0) k/uL Eosinophils # (0-0.7) k/uL Basophils # (0-0.2) k/uL Hypochromasia PT (9.0-12.0) sec INR (<1.2) APTT (22.0-30.0) sec D-Dimer (<0.60) mg/L FEU Sodium (137-145) mmol/L Potassium (3.5-5.1) mmol/L Chloride (98-107) mmol/L Carbon Dioxide (22-30) mmol/L Anion Gap mmol/L BUN (7-17) mg/dL Creatinine (0.52-1.04) mg/dL Est GFR (CKD-EPI)AfAm (>60 ml/min/1.73 sqM) Est GFR (CKD-EPI)NonAf (>60 ml/min/1.73 sqM) Glucose (74-99) mg/dL Plasma Lactic Acid Rajinder 1.9 (0.7-2.0) mmol/L Calcium (8.4-10.2) mg/dL Magnesium (1.6-2.3) mg/dL Total Bilirubin (0.2-1.3) mg/dL AST (14-36) U/L ALT (4-34) U/L Alkaline Phosphatase (38-126) U/L Lactate Dehydrogenase (313-618) U/L Creatine Kinase (30-135) U/L Troponin I <0.012 (0.000-0.034) ng/mL C-Reactive Protein (<10.0) mg/L NT-Pro-B Natriuret Pep 6010 pg/mL Total Protein (6.3-8.2) g/dL Albumin (3.5-5.0) g/dL - EKG Data -: EKG Interpreted by Me (Pacemaker rhythm a 70 QRS was 76 daily since QTC 494/533 artifact present.) - Radiology Data Radiology results: report reviewed (I did review the imaging and report evidence of some chronic changes though on my evaluation there appears be some suspicion for right lower lobe infiltrate.), image reviewed Disposition Clinical Impression: Pneumonia, COPD with exacerbation, Hypotensive episode, Failure to thrive, Dehydration Disposition: ADMITTED IP TO THIS HOSP Condition: Fair Referrals: Jolly Loaiza DO [REFERRING] - 1-2 days
[2020-02-20] MEDS ORDERED: SODIUM CHLORIDE 0.9% 500 ML 500 ML IV ONE (13:58)
[2020-02-20 14:26] LABS: Basophils % (A) 0 %; Eosinophils # (A) 0.1 k/uL (0-0.7); Eosinophils % (A) 1 %; HCT 40.5 % (34.0-46.0); HGB 12.2 gm/dL (11.4-16.0); Hypochromasia Moderate; Lymphocytes # (A) 1.4 k/uL (1.0-4.8); Lymphocytes % (A) 13 %; MCH 27.9 pg (25.0-35.0); MCV 92.9 fL (80.0-100.0); Mean Platelet Volume 7.7; Monocytes # (A) 0.6 k/uL (0-1.0); Monocytes % (A) 5 %; Neutrophils # (A) 8.6 k/uL (1.3-7.7); Neutrophils % (A) 80 %; Platelet Count 324 k/uL (150-450); RBC 4.36 m/uL (3.80-5.40); RDW 15.2 % (11.5-15.5); WBC 10.8 k/uL (3.8-10.6)
[2020-02-20 14:38] LABS: Albumin 3.6 g/dL (3.5-5.0); C Reactive Protein 19.7 mg/L (<10.0); Calcium 9.3 mg/dL (8.4-10.2); Magnesium 2.1 mg/dL (1.6-2.3); Potassium 3.6 mmol/L (3.5-5.1); Total Bilirubin 0.5 mg/dL (0.2-1.3); Total Protein 6.8 g/dL (6.3-8.2)
[2020-02-20 14:39] LABS: INR 1.2 (<1.2); Partial Thromboplastin Time 22.9 sec (22.0-30.0); Prothrombin Time 12.3 sec (9.0-12.0)
[2020-02-20 14:42] LABS: D-Dimer 0.97 mg/L FEU (<0.60)
--- NOTE | 2020-02-20 14:47 | XR ---
EXAMINATION TYPE: XR chest 1V portable DATE OF EXAM: 02/20/2020 COMPARISON: 03/21/2019 HISTORY: Pneumonia chest pain TECHNIQUE: Single view FINDINGS: Heart is enlarged. There is mild pulmonary interstitial edema. There is left axillary pacem alexis. Thoracic aorta is atheromatous. IMPRESSION: There is probably mild congestive heart failure unchanged. There is probably underlying p ulmonary fibrosis.
[2020-02-20] MEDS ORDERED: SODIUM CHLORIDE 0.9% 500 ML 500 ML IV STA (15:14)
[2020-02-20] MEDS ORDERED: cefTRIAXone IN SWFI 1,000 MG/10 ML SYRINGE IVP STA (15:30)
[2020-02-20] MEDS ORDERED: AZITHROMYCIN 500 MG in SODIUM CHLORIDE 0.9% 250 ML IVPB STA (15:30)
[2020-02-20] MEDS ORDERED: PNEUMONIA PROTOCOL UTILIZED 1 EACH MISC PO PRN (15:42)
[2020-02-20] MEDS ORDERED: NA PHOS,M-B/NA PHOS,DI-BA 133 ML ENEMA RECTAL PRN (15:45)
[2020-02-20] MEDS ORDERED: ASPIRIN 81 MG PO PRN (15:45)
[2020-02-20] MEDS ORDERED: MAGNESIUM HYDROXIDE 2,400 MG/10 ML CUP PO PRN (15:45)
[2020-02-20] MEDS ORDERED: ACETAMINOPHEN TAB 325 MG TAB PO PRN (15:45)
[2020-02-20] MEDS ORDERED: HYDROcodone/APAP 5-325MG 1 EACH TAB PO PRN (15:45)
--- NOTE | 2020-02-20 16:37 | CT ---
EXAMINATION TYPE: CT chest wo con DATE OF EXAM: 02/20/2020 COMPARISON: 10/13/2018 HISTORY: Dyspnea and cough. CT DLP: 311 mGycm Automated exposure control for dose reduction was used. There is some coarse interstitial and linear infiltrate and atelectasis in the lower lobes bilaterall y. This is more on the right side. There is mild pleural thickening right posterior lung base. There is extensive atheromatous change in the thoracic aorta. There is extensive coronary artery calcificat ion. There is calcification of the mitral annulus. Heart size is slightly enlarged. There is no media stinal adenopathy. There are no hilar masses. There is bronchial cartilage calcification. There is multilevel spondylotic changes in the thoracic spine with mild thoracic kyphotic deformity. I see no acute fracture. The ribs appear intact. IMPRESSION: Extensive atherosclerotic vascular disease. There is chronic pleural thickening right lower lobe posteriorly unchanged compared to old exam. Ther e is slight increased scarring and atelectasis in the right lower lobe compared to old exam. No suspi cious pulmonary mass.
[2020-02-20] MEDS ORDERED: NON FORMULARY DRUG (Lactose-Reduced Food [Ensure Plus] 120 ML) PO SCH (17:00)
[2020-02-20] MEDS ORDERED: ALPRAZolam 0.25 MG TAB PO PRN (17:39)
[2020-02-20] MEDS: ATORVASTATIN 20 MG TAB PO SCH (19:47)
[2020-02-20] MEDS: CLOPIDOGREL 75 MG TAB PO SCH (19:47)
[2020-02-20] MEDS: SODIUM CHLORIDE 0.9% 1,000 ML IV SCH (19:47)
[2020-02-20] MEDS: lisinopriL 10 MG TAB PO SCH (19:48)
[2020-02-20] MEDS: RIVAROXABAN 15 MG TAB PO SCH (19:49)
[2020-02-20] MEDS: risperiDONE ODT 2 MG TAB PO SCH (19:49)
[2020-02-20] MEDS: IPRATROPIUM-ALBUTEROL 3 ML NEB INHALATION SCH ×2 (20:11→23:57)
[2020-02-20] MEDS: FORMOTEROL FUMARATE 20 MCG/2 ML NEBU INHALATION SCH (20:11)
[2020-02-20] MEDS: BUDESONIDE 1 MG/2 ML NEBU INHALATION SCH (20:11)
--- NOTE | 2020-02-20 21:00 | HP ---
HISTORY AND PHYSICAL DATE OF SERVICE: 02/20/2020 CHIEF COMPLAINT: Shortness of breath. HISTORY OF PRESENT ILLNESS: This 84-year-old woman with a past medical history of multiple medical problems including CAD, COPD, CVA, TIA, diabetes, hypertension, history of myocardial infarction, was in [facility]. The patient is having shortness of breath and some cough for the last several days. Patient was started on Zithromax and steroids, but today the pulse ox was 91% at the detention and 82% on room air per the paramedics and the patient was taken to [facility] and admitted for further evaluation and treatment. The chest x-ray showed some possible CHF and also increased bronchovascular markings on the right lower part which was reviewed personally by me. CT scan of the chest was also done which showed extensive atherosclerotic vascular disease and chronic pleural thickening of the right lower lobe posteriorly unchanged and slight increase in the scarring atelectasis of the right lower lobe. There is no history of any fever, rigors, chills. No headache, loss of consciousness, seizures at this time. PAST MEDICAL HISTORY: History of COPD, COPD, CVA, TIA, diabetes, hypertension, history of liver disease, history of myocardial infarction. HOME MEDICATIONS: 1. Risperdal. 2. Prednisone. 3. Zestril. 4. Bisacodyl. 5. Vitamin A. 6. Xarelto. 7. Fleet. 8. Toprol-XL. 9. Milk of magnesia. 10.Imodium. 11.Synthroid. 12.Ensure. 13.[place] 5 mg. 14.Lasix. 15.Nexium. 16.Vitamin D2. 17.Aricept. 18.Colace. 19.Plavix. 20.Zithromax. 21.Lipitor. 22.Aspirin. 23.Ventolin. 24.Tylenol. Doses were reviewed. ALLERGIES: AMOXICILLIN and POTASSIUM. FAMILY HISTORY: History of CHF in the family. SOCIAL HISTORY: Remote history of smoking. No history of alcohol intake. REVIEW OF SYSTEMS: ENT: No history of diminished hearing or vision. CARDIOVASCULAR: As mentioned earlier. RESPIRATORY: As mentioned earlier. GI: No nausea, vomiting, or diarrhea. : No dysuria. NERVOUS: No numbness. Generalized weakness. ALLERGY/IMMUNOLOGY: No asthma or hayfever. MUSCULOSKELETAL: As mentioned earlier. HEMATOLOGY/ONCOLOGY: History of anemia. ENDOCRINE: Hypothyroidism. SKIN: Negative. CONSTITUTIONAL: As mentioned earlier. RHEUMATOLOGY: Negative. PSYCHIATRY As mentioned earlier. PHYSICAL EXAMINATION: GENERAL: Patient is alert and oriented times two. VITAL SIGNS: Pulse 70, bp 151/78, respirations 20, temp 98.7, pulse ox 97% on 2 liters. HEENT: Conjunctivae are normal. Oral mucosa is moist. NECK: No jugular venous distention. No carotid bruits. No lymph node enlargement. RESPIRATORY: Breath sounds diminished at the bases. A few scattered rhonchi and crackles. HEART: S1 and S2, muffled. ABDOMEN: Soft, no tenderness. No masses palpable. EXTREMITIES: Minimal edema. NERVOUS: Higher functions as mentioned earlier. Moves all four limbs. No focal motor or sensory deficits. LYMPHATICS: No lymph nodes in the neck or axilla. SKIN: No rashes. JOINTS: No acute deforming arthropathy. LABS: WBC 10.8, hemoglobin 12.2. INR 1.2. Sodium 141, potassium 3.6. AST is 56, ALT is 44. ASSESSMENT: 1. Shortness of breath, possibly multifactorial with chronic obstructive pulmonary disease acute exacerbation, as well as congestive heart failure acute exacerbation. 2. Possible right lower lobe pneumonia, rule out COVID-19. 3. Acute hypoxic respiratory failure secondary to above. 4. Increased WBC. 5. Increased AST and ALT. 6. Increased CRP. 7. History of *coronary artery disease with stent. 8. History of cerebrovascular accident with transient ischemic attack. 9. Diabetes mellitus type 2. 10.Hyperlipidemia. 11.History of chronic liver disease. 12.Myocardial infarction. 13.History of borderline diabetes. 14.Hypothyroidism. 15.History of noncompliance with medications. 16.History of bowel resection. 17.History of pacemaker. 18.NO CODE, NO CPR, NO VENT. RECOMMENDATIONS AND DISCUSSION: This 84-year-old woman who presented with multiple complex medical issues and medications, will monitor the patient closely. Continue the current management and continue symptomatic treatment. Will initiate broad-spectrum IV antibiotics, bronchodilators and Lasix also. BNP is elevated. Monitor fluid and electrolyte balance closely. DVT prophylaxis. Resume the home medications. The patient is already on Xarelto. The prognosis is guarded because of multiple complex medical issues. Further recommendations to follow. Discussed with the patient and discussed with staff. Discussed with Dr. Marcus Loaiza, who will be following the patient tomorrow. MMODL / IJN: [id number] /
[2020-02-20 22:08] LABS: Glucose,Whole Blood 169 mg/dL (75-99)
[2020-02-20] MEDS: methylPREDNISolone SOD SUCCI 125 MG/2 ML VIAL IV SCH (23:18)
[2020-02-20] MEDS: FUROSEMIDE 10 MG/ML 4 ML VIAL IV SCH (23:18)
[2020-02-20] MEDS: INSULIN ASPART (NovoLOG) 100 UNIT/ML VIAL SQ SCH (23:18)
[2020-02-21] MEDS: methylPREDNISolone SOD SUCCI 125 MG/2 ML VIAL IV SCH ×4 (01:31→17:20)
[2020-02-21] MEDS: IPRATROPIUM-ALBUTEROL 3 ML NEB INHALATION SCH ×5 (03:40→21:13)
[2020-02-21 06:11] LABS: Glucose,Whole Blood 124 mg/dL (75-99)
[2020-02-21 06:15] LABS: Basophils % (A) 0 %; Eosinophils % (A) 0 %; HGB 11.1 gm/dL (11.4-16.0); Hypochromasia Moderate; Lymphocytes # (A) 0.4 k/uL (1.0-4.8); Lymphocytes % (A) 5 %; MCH 28.7 pg (25.0-35.0); MCHC 30.8 g/dL (31.0-37.0); MCV 93.1 fL (80.0-100.0); Mean Platelet Volume 7.6; Monocytes # (A) 0.1 k/uL (0-1.0); Monocytes % (A) 2 %; Neutrophils # (A) 6.7 k/uL (1.3-7.7); Neutrophils % (A) 93 %; Platelet Count 271 k/uL (150-450); RBC 3.87 m/uL (3.80-5.40); RDW 15.2 % (11.5-15.5); WBC 7.2 k/uL (3.8-10.6)
[2020-02-21 06:27] LABS: African American GFR (CKD) >90 (>60 ml/min/1.73 sqM); Anion Gap 4 mmol/L; Blood Urea Nitrogen 21 mg/dL (7-17); Calcium 6.6 mg/dL (8.4-10.2); Carbon Dioxide 23 mmol/L (22-30); Chloride 114 mmol/L (98-107); Glucose 107 mg/dL (74-99); Non-African American GFR(CKD) 88 (>60 ml/min/1.73 sqM); Potassium 3.2 mmol/L (3.5-5.1); Sodium 141 mmol/L (137-145)
[2020-02-21] MEDS: SODIUM CHLORIDE 0.9% 1,000 ML IV SCH ×4 (07:20→17:20)
[2020-02-21] MEDS: BUDESONIDE 1 MG/2 ML NEBU INHALATION SCH ×2 (07:25→21:13)
[2020-02-21] MEDS: FORMOTEROL FUMARATE 20 MCG/2 ML NEBU INHALATION SCH ×2 (07:25→21:13)
[2020-02-21] MEDS ORDERED: FUROSEMIDE 20 MG TAB PO SCH (08:00)
[2020-02-21] MEDS: INSULIN ASPART (NovoLOG) 100 UNIT/ML VIAL SQ SCH ×4 (08:34→21:23)
[2020-02-21] MEDS: FUROSEMIDE 10 MG/ML 4 ML VIAL IV SCH ×2 (08:37→21:23)
[2020-02-21 10:08] LABS: Ferritin 43.1 ng/mL (10.0-291.0)
[2020-02-21] MEDS: DONEPEZIL 5 MG TAB PO SCH (10:34)
[2020-02-21] MEDS: PANTOPRAZOLE 40 MG TABLET PO SCH (10:34)
[2020-02-21] MEDS: METOPROLOL SUCCINATE (ER) 25 MG TAB.ER.24H PO SCH (10:34)
[2020-02-21] MEDS: LEVOTHYROXINE 50 MCG TAB PO SCH (10:34)
[2020-02-21] MEDS: VITS A & D-WHITE PET-LANOLIN 5 GM OINT.PACK TOPICAL SCH (10:35)
[2020-02-21 11:50] LABS: Glucose,Whole Blood 122 mg/dL (75-99)
[2020-02-21] MEDS: AZITHROMYCIN 500 MG TAB PO SCH (15:30)
[2020-02-21] MEDS: CLOPIDOGREL 75 MG TAB PO SCH (15:30)
[2020-02-21] MEDS: lisinopriL 10 MG TAB PO SCH (15:31)
[2020-02-21] MEDS: RIVAROXABAN 15 MG TAB PO SCH (15:31)
[2020-02-21] MEDS: risperiDONE ODT 2 MG TAB PO SCH (15:31)
[2020-02-21 17:00] LABS: Glucose,Whole Blood 133 mg/dL (75-99)
[2020-02-21 20:14] LABS: Glucose,Whole Blood 134 mg/dL (75-99)
--- NOTE | 2020-02-21 21:32 | P.PN ---
Subjective Progress Note Date: 02/21/20 Pt's BP is improved today and SpO2 in the 90s on 3 L O2. Her COVID test is still pending. She remains lethargic and is unable to answer questions this morning. Objective - Vital Signs Vital signs: Vital Signs Temp 98.8 F 02/21/20 20:00 Pulse 72 02/21/20 21:14 Resp 18 02/21/20 20:00 BP 174/84 02/21/20 20:00 Pulse Ox 93 L 02/21/20 20:00 Intake & Output 02/21/20 02/21/20 02/22/20 06:59 18:59 06:59 Output Total 1 500 Balance -1 -500 Weight 47.5 kg Output: Urine 1 500 Other: Voiding Method Diaper Diaper # Voids 2 5 - Exam Gen: elderly female in mild distress. On 3 L O2 CV: RRR, systolic murmur. Pulses 2+ Lungs: rhonchi and wheezing present Ext: no edema Neuro: obtunded - Labs CBC & Chem 7: 02/21/20 05:46 02/21/20 05:46 Labs: Abnormal Lab Results - Last 24 Hours (Table) 02/20/20 02/21/20 02/21/20 Range/Units 22:06 05:46 05:46 Hgb 11.1 L (11.4-16.0) gm/dL MCHC 30.8 L (31.0-37.0) g/dL Lymphocytes # 0.4 L (1.0-4.8) k/uL Potassium 3.2 L (3.5-5.1) mmol/L Chloride 114 H (98-107) mmol/L BUN 21 H (7-17) mg/dL Creatinine 0.50 L (0.52-1.04) mg/dL Glucose 107 H (74-99) mg/dL POC Glucose (mg/dL) 169 H (75-99) mg/dL Calcium 6.6 L (8.4-10.2) mg/dL 02/21/20 02/21/20 02/21/20 Range/Units 06:10 11:49 16:59 Hgb (11.4-16.0) gm/dL MCHC (31.0-37.0) g/dL Lymphocytes # (1.0-4.8) k/uL Potassium (3.5-5.1) mmol/L Chloride (98-107) mmol/L BUN (7-17) mg/dL Creatinine (0.52-1.04) mg/dL Glucose (74-99) mg/dL POC Glucose (mg/dL) 124 H 122 H 133 H (75-99) mg/dL Calcium (8.4-10.2) mg/dL 02/21/20 Range/Units 20:12 Hgb (11.4-16.0) gm/dL MCHC (31.0-37.0) g/dL Lymphocytes # (1.0-4.8) k/uL Potassium (3.5-5.1) mmol/L Chloride (98-107) mmol/L BUN (7-17) mg/dL Creatinine (0.52-1.04) mg/dL Glucose (74-99) mg/dL POC Glucose (mg/dL) 134 H (75-99) mg/dL Calcium (8.4-10.2) mg/dL Microbiology - Last 24 Hours (Table) 02/20/20 14:04 Blood Culture - Preliminary Blood No Growth after 24 hours Assessment and Plan (1) Acute hypoxemic respiratory failure Current Visit: Yes Status: Acute Code(s): J96.01 - ACUTE RESPIRATORY FAILURE WITH HYPOXIA SNOMED Code(s): 120671629 (2) Right lower lobe pneumonia Current Visit: Yes Status: Acute Code(s): J18.9 - PNEUMONIA, UNSPECIFIED ORGANISM SNOMED Code(s): 224908174 (3) COPD exacerbation Current Visit: Yes Status: Acute Code(s): J44.1 - CHRONIC OBSTRUCTIVE PULMONARY DISEASE W (ACUTE) EXACERBATION SNOMED Code(s): 039718076 (4) Coronary artery disease Current Visit: Yes Status: Acute Code(s): I25.10 - ATHSCL HEART DISEASE OF [place] CORONARY ARTERY W/O ANG PCTRS SNOMED Code(s): 00910906 (5) Metabolic encephalopathy Current Visit: Yes Status: Acute Code(s): G93.41 - METABOLIC ENCEPHALOPATHY SNOMED Code(s): 90737407 (6) Protein calorie malnutrition Current Visit: No Status: Acute Code(s): E46 - UNSPECIFIED PROTEIN-CALORIE MALNUTRITION SNOMED Code(s): 399670101 Plan: Continue with current management, IV steroids and empiric antibiotics. Continue IV lasix. Decrease IV fluids. Await COVID test
[2020-02-22] MEDS: methylPREDNISolone SOD SUCCI 125 MG/2 ML VIAL IV SCH ×4 (00:27→17:40)
[2020-02-22] MEDS: IPRATROPIUM-ALBUTEROL 3 ML NEB INHALATION SCH ×6 (01:37→20:36)
[2020-02-22 06:11] LABS: Glucose,Whole Blood 119 mg/dL (75-99)
[2020-02-22] MEDS: LEVOTHYROXINE 50 MCG TAB PO SCH (06:29)
[2020-02-22 06:41] LABS: Basophils % (A) 0 %; Eosinophils % (A) 0 %; HCT 43.2 % (34.0-46.0); HGB 12.9 gm/dL (11.4-16.0); Hypochromasia Moderate; Lymphocytes # (A) 0.7 k/uL (1.0-4.8); Lymphocytes % (A) 4 %; MCHC 29.8 g/dL (31.0-37.0); MCV 93.9 fL (80.0-100.0); Mean Platelet Volume 7.7; Monocytes # (A) 0.6 k/uL (0-1.0); Monocytes % (A) 4 %; Neutrophils # (A) 14.2 k/uL (1.3-7.7); Neutrophils % (A) 90 %; Platelet Count 283 k/uL (150-450); RDW 15.2 % (11.5-15.5); WBC 15.8 k/uL (3.8-10.6)
[2020-02-22 06:58] LABS: African American GFR (CKD) >90 (>60 ml/min/1.73 sqM); Anion Gap 10 mmol/L; Blood Urea Nitrogen 27 mg/dL (7-17); Calcium 8.8 mg/dL (8.4-10.2); Carbon Dioxide 25 mmol/L (22-30); Chloride 107 mmol/L (98-107); Glucose 126 mg/dL (74-99); Non-African American GFR(CKD) 79 (>60 ml/min/1.73 sqM); Potassium 3.8 mmol/L (3.5-5.1); Sodium 142 mmol/L (137-145)
[2020-02-22] MEDS: BUDESONIDE 1 MG/2 ML NEBU INHALATION SCH ×2 (07:35→20:36)
[2020-02-22] MEDS: FORMOTEROL FUMARATE 20 MCG/2 ML NEBU INHALATION SCH ×2 (07:35→20:36)
[2020-02-22] MEDS: SODIUM CHLORIDE 0.9% 1,000 ML IV SCH ×2 (08:14→17:33)
[2020-02-22] MEDS: INSULIN ASPART (NovoLOG) 100 UNIT/ML VIAL SQ SCH ×4 (08:14→20:43)
[2020-02-22] MEDS: PANTOPRAZOLE 40 MG TABLET PO SCH (08:14)
[2020-02-22] MEDS: DONEPEZIL 5 MG TAB PO SCH (08:15)
[2020-02-22] MEDS: METOPROLOL SUCCINATE (ER) 25 MG TAB.ER.24H PO SCH (08:15)
[2020-02-22] MEDS: FUROSEMIDE 10 MG/ML 4 ML VIAL IV SCH ×2 (08:16→20:42)
[2020-02-22] MEDS: VITS A & D-WHITE PET-LANOLIN 5 GM OINT.PACK TOPICAL SCH (08:21)
[2020-02-22 11:25] LABS: Glucose,Whole Blood 122 mg/dL (75-99)
[2020-02-22] MEDS ORDERED: Potassium Replacement Protocol 1 EACH MISC MISCELLANE PRN (13:51)
[2020-02-22] MEDS: CLOPIDOGREL 75 MG TAB PO SCH (14:03)
[2020-02-22] MEDS: lisinopriL 10 MG TAB PO SCH (14:03)
[2020-02-22] MEDS: AZITHROMYCIN 500 MG TAB PO SCH (14:04)
[2020-02-22] MEDS: RIVAROXABAN 15 MG TAB PO SCH (14:04)
[2020-02-22] MEDS: risperiDONE ODT 2 MG TAB PO SCH (14:04)
--- NOTE | 2020-02-22 14:18 | P.PN ---
Subjective Progress Note Date: 02/22/20 Maintained on IV antibiotics of Rocephin, Zithromax, IV steroids, nebulized bronchodilators. T-max 99.3, WBC up to 15.8. Maintaining O2 sats in the high 90s on 3 L nasal cannula. Blood pressure stable. Diuresing well on Lasix IV push with 24-hour I&O reflecting a negative fluid balance. BUN increased up to 27, creatinine increased to 0.69. Coronavirus testing pending. Nothing by mouth, Yesterday too lethargic to participate with swallow evaluation. Blood sugars controlled. This morning, moaning, eyes more alert. Staff reports patient talking in small sentences, becoming less responsive into the afternoon. Objective - Vital Signs Vital signs: Vital Signs Temp 97.7 F 02/22/20 04:00 Pulse 80 02/22/20 07:58 Resp 20 02/22/20 04:00 BP 167/83 02/22/20 04:00 Pulse Ox 98 02/22/20 04:00 Intake & Output 02/21/20 02/22/20 02/22/20 18:59 06:59 18:59 Output Total 500 1500 Balance -500 -1500 Weight 52.5 kg Output: Urine 500 1500 Other: Voiding Method Diaper Diaper # Voids 5 - Exam Gen: elderly female in mild distress. On 3 L O2 CV: RRR, systolic murmur. Pulses 2+ Lungs: Essentially clear, bilateral bases diminished Ext: no edema Neuro: Difficult to assess, lethargic, moaning with noxious stimuli. - Labs CBC & Chem 7: 02/22/20 06:03 02/22/20 06:07 Labs: Abnormal Lab Results - Last 24 Hours (Table) 02/21/20 02/21/20 02/21/20 Range/Units 11:49 16:59 20:12 WBC (3.8-10.6) k/uL MCHC (31.0-37.0) g/dL Neutrophils # (1.3-7.7) k/uL Lymphocytes # (1.0-4.8) k/uL BUN (7-17) mg/dL Glucose (74-99) mg/dL POC Glucose (mg/dL) 122 H 133 H 134 H (75-99) mg/dL 02/22/20 02/22/20 02/22/20 Range/Units 06:03 06:07 06:09 WBC 15.8 H (3.8-10.6) k/uL MCHC 29.8 L (31.0-37.0) g/dL Neutrophils # 14.2 H (1.3-7.7) k/uL Lymphocytes # 0.7 L (1.0-4.8) k/uL BUN 27 H (7-17) mg/dL Glucose 126 H (74-99) mg/dL POC Glucose (mg/dL) 119 H (75-99) mg/dL Microbiology - Last 24 Hours (Table) 02/20/20 14:04 Blood Culture - Preliminary Blood No Growth after 24 hours Assessment and Plan Assessment: (1) Acute hypoxemic respiratory failure, multifactorial secondary to acute COPD exacerbation, acute CHF exacerbation Current Visit: Yes Status: Acute Code(s): J96.01 - ACUTE RESPIRATORY FAILURE WITH HYPOXIA SNOMED Code(s): 881264290 (2) Right lower lobe pneumonia, coronavirus pending Current Visit: Yes Status: Acute Code(s): J18.9 - PNEUMONIA, UNSPECIFIED ORGANISM SNOMED Code(s): 833454323 (3) acute COPD exacerbation Current Visit: Yes Status: Acute Code(s): J44.1 - CHRONIC OBSTRUCTIVE PULMONARY DISEASE W (ACUTE) EXACERBATION SNOMED Code(s): 807535216 (4) Coronary artery disease Current Visit: Yes Status: Acute Code(s): I25.10 - ATHSCL HEART DISEASE OF [place] CORONARY ARTERY W/O ANG PCTRS SNOMED Code(s): 55446417 (5) Metabolic encephalopathy Current Visit: Yes Status: Acute Code(s): G93.41 - METABOLIC ENCEPHALOPATHY SNOMED Code(s): 93807281 (6) Protein calorie malnutrition Current Visit: No Status: Acute Code(s): E46 - UNSPECIFIED PROTEIN-CALORIE MALNUTRITION SNOMED Code(s): 757685953 Plan: Continue on current medication regime ,monitoring and symptomatic treatment. Maintain IV antibiotics, steroids, nebulized bronchodilators. Coronavirus testing pending.Continue with IV push diuretics with close monitoring of renal function. Reevaluate swallow, status PERMITTING. Prognosis guarded given multiple complex medical issues. The impression and plan of care has been dictated as directed. : I performed a history and examination of this patient, discussed the same with the dictator. I agree with the dictator's note ,documented as a scribe. Any additional findings or plans will be noted.
[2020-02-22 17:12] LABS: Glucose,Whole Blood 119 mg/dL (75-99)
[2020-02-22 20:53] LABS: Glucose,Whole Blood 119 mg/dL (75-99)
[2020-02-22] MEDS: methylPREDNISolone SOD SUCCI 40 MG/ML 1 ML VIAL IV SCH (21:26)
[2020-02-23] MEDS: IPRATROPIUM-ALBUTEROL 3 ML NEB INHALATION SCH ×6 (00:18→19:30)
[2020-02-23] MEDS: SODIUM CHLORIDE 0.9% 1,000 ML IV SCH ×3 (03:17→22:18)
[2020-02-23 05:55] LABS: Glucose,Whole Blood 139 mg/dL (75-99)
[2020-02-23] MEDS: PANTOPRAZOLE 40 MG TABLET PO SCH (06:04)
[2020-02-23] MEDS: LEVOTHYROXINE 50 MCG TAB PO SCH (06:04)
[2020-02-23] MEDS: INSULIN ASPART (NovoLOG) 100 UNIT/ML VIAL SQ SCH ×4 (06:08→21:01)
[2020-02-23] MEDS: methylPREDNISolone SOD SUCCI 40 MG/ML 1 ML VIAL IV SCH ×3 (06:08→21:01)
[2020-02-23] MEDS: FORMOTEROL FUMARATE 20 MCG/2 ML NEBU INHALATION SCH ×2 (07:34→19:30)
[2020-02-23] MEDS: BUDESONIDE 1 MG/2 ML NEBU INHALATION SCH ×2 (07:34→19:30)
[2020-02-23 08:17] LABS: Basophils % (A) 0 %; Eosinophils % (A) 0 %; HCT 40.1 % (34.0-46.0); HGB 12.2 gm/dL (11.4-16.0); Hypochromasia Slight; Lymphocytes # (A) 0.5 k/uL (1.0-4.8); Lymphocytes % (A) 4 %; MCH 28.4 pg (25.0-35.0); MCHC 30.5 g/dL (31.0-37.0); Mean Platelet Volume 7.8; Monocytes # (A) 0.6 k/uL (0-1.0); Monocytes % (A) 5 %; Neutrophils # (A) 12.1 k/uL (1.3-7.7); Neutrophils % (A) 90 %; Platelet Count 259 k/uL (150-450); RBC 4.31 m/uL (3.80-5.40); RDW 15.1 % (11.5-15.5); WBC 13.4 k/uL (3.8-10.6)
[2020-02-23 08:23] LABS: African American GFR (CKD) >90 (>60 ml/min/1.73 sqM); Anion Gap 6 mmol/L; Blood Urea Nitrogen 31 mg/dL (7-17); Calcium 8.7 mg/dL (8.4-10.2); Carbon Dioxide 29 mmol/L (22-30); Chloride 106 mmol/L (98-107); Glucose 132 mg/dL (74-99); Non-African American GFR(CKD) 81 (>60 ml/min/1.73 sqM); Potassium 3.3 mmol/L (3.5-5.1); Sodium 141 mmol/L (137-145)
[2020-02-23] MEDS: DONEPEZIL 5 MG TAB PO SCH (09:11)
[2020-02-23] MEDS: METOPROLOL SUCCINATE (ER) 25 MG TAB.ER.24H PO SCH (09:11)
[2020-02-23] MEDS: FUROSEMIDE 10 MG/ML 4 ML VIAL IV SCH ×2 (09:32→21:01)
[2020-02-23] MEDS: VITS A & D-WHITE PET-LANOLIN 5 GM OINT.PACK TOPICAL SCH (09:34)
--- NOTE | 2020-02-23 09:48 | P.PN ---
Subjective Progress Note Date: 02/23/20 Maintained on IV antibiotics of Rocephin, Zithromax, IV steroids, nebulized bronchodilators. T-max 99.3, WBC up to 15.8. Maintaining O2 sats in the high 90s on 3 L nasal cannula. Blood pressure stable. Diuresing well on Lasix IV push with 24-hour I&O reflecting a negative fluid balance. BUN increased up to 27, creatinine increased to 0.69. Coronavirus testing pending. Nothing by mouth, Yesterday too lethargic to participate with swallow evaluation. Blood sugars controlled. This morning, moaning, eyes more alert. Staff reports patient talking in small sentences, becoming less responsive into the afternoon. 02/23/20 T-max 99.7, WBC trending down to 13.4. Midline placed this morning, initiation of TPN pending. Continues diuresing well on Lasix IV push, Creatinine pending. Objective - Vital Signs Vital signs: Vital Signs Temp 98.7 F 02/23/20 04:36 Pulse 76 02/23/20 07:58 Resp 18 02/23/20 04:36 BP 179/74 02/23/20 04:36 Pulse Ox 94 L 02/23/20 04:36 Intake & Output 02/22/20 02/23/20 02/23/20 18:59 06:59 18:59 Output Total 1600 1500 Balance -1600 -1500 Weight 49 kg Output: Urine 1600 1500 Other: Voiding Method Diaper Diaper Incontinent - Exam Gen: elderly female, tired appearing, no acute distress, currently not conversi ng at this time CV: RRR, systolic murmur. Pulses 2+ Lungs: Essentially clear, bilateral bases diminished Ext: no edema Neuro: Difficult to assess, squeezing right hand to command, opening and closing eyes spontaneously - Labs CBC & Chem 7: 02/23/20 07:36 02/23/20 07:36 Labs: Abnormal Lab Results - Last 24 Hours (Table) 02/22/20 02/22/20 02/22/20 Range/Units 11:22 17:05 20:42 WBC (3.8-10.6) k/uL MCHC (31.0-37.0) g/dL Neutrophils # (1.3-7.7) k/uL Lymphocytes # (1.0-4.8) k/uL Potassium (3.5-5.1) mmol/L BUN (7-17) mg/dL Glucose (74-99) mg/dL POC Glucose (mg/dL) 122 H 119 H 119 H (75-99) mg/dL 02/23/20 02/23/20 02/23/20 Range/Units 05:52 07:36 07:36 WBC 13.4 H (3.8-10.6) k/uL MCHC 30.5 L (31.0-37.0) g/dL Neutrophils # 12.1 H (1.3-7.7) k/uL Lymphocytes # 0.5 L (1.0-4.8) k/uL Potassium 3.3 L (3.5-5.1) mmol/L BUN 31 H (7-17) mg/dL Glucose 132 H (74-99) mg/dL POC Glucose (mg/dL) 139 H (75-99) mg/dL Microbiology - Last 24 Hours (Table) 02/20/20 14:04 Blood Culture - Preliminary Blood No Growth after 48 hours Assessment and Plan Assessment: (1) Acute hypoxemic respiratory failure, multifactorial secondary to acute COPD exacerbation, acute on chronic CHF exacerbation , diastolic dysfunction Current Visit: Yes Status: Acute Code(s): J96.01 - ACUTE RESPIRATORY FAILURE WITH HYPOXIA SNOMED Code(s): 985680601 (2) Right lower lobe pneumonia, coronavirus pending Current Visit: Yes Status: Acute Code(s): J18.9 - PNEUMONIA, UNSPECIFIED ORGANISM SNOMED Code(s): 765262244 (3) acute COPD exacerbation Current Visit: Yes Status: Acute Code(s): J44.1 - CHRONIC OBSTRUCTIVE PULMONARY DISEASE W (ACUTE) EXACERBATION SNOMED Code(s): 853049248 (4) Coronary artery disease Current Visit: Yes Status: Acute Code(s): I25.10 - ATHSCL HEART DISEASE OF [place] CORONARY ARTERY W/O ANG PCTRS SNOMED Code(s): 83598284 (5) Metabolic encephalopathy Current Visit: Yes Status: Acute Code(s): G93.41 - METABOLIC ENCEPHALOPATHY SNOMED Code(s): 58709256 (6) Protein calorie malnutrition Current Visit: No Status: Acute Code(s): E46 - UNSPECIFIED PROTEIN-CALORIE MALNUTRITION SNOMED Code(s): 256174297 Plan: Continue on current medication regime ,monitoring and symptomatic treatment. Labs pending. Midline placed.TPN pending.we'll DC IV fluids once TPN initiated .Maintain IV antibiotics, steroids, nebulized bronchodilators. Coronavirus reported not detectected. Continue diuresis, Prognosis guarded g iven multiple complex medical issues. The impression and plan of care has been dictated as directed. : I performed a history and examination of this patient, discussed the same with the dictator. I agree with the dictator's note ,documented as a scribe. Any additional findings or plans will be noted.
[2020-02-23 12:25] LABS: Ionized Calcium 4.8 mg/dL (4.5-5.3)
[2020-02-23 12:31] LABS: Glucose,Whole Blood 164 mg/dL (75-99)
--- NOTE | 2020-02-23 14:44 | CDI ---
Documentation Clarification Form Date: 02/23/2020 02:09:48 PM From: Diana Troncoso RN, CCDS Admit Date: 02/20/2020 03:42:00 PM Patient Name: Pauline Loaiza Visit Number: [id number] Discharge Date: ATTENTION: The Clinical Documentation Specialists (CDI) and [facility] Coding Staff appreciate your assistance in clarifying documentation. Please respond to the clarification below the line at the bottom and electronically sign. The CDI & [facility] Coding staff will review the response and follow-up if needed. Please note: Queries are made part of the Legal Health Record. If you have any questions, please contact the author of this message via ITS. Dr. Marcus Loaiza Protein calorie malnutrition has been documented in H&P and subsequent progress notes. Please provide further specific for the degree of malnutrition History/Risk Factors: CHF, COPD, Diabetes mellitus, CVA, Liver disease, Thyroid Disorder, Dementia, Bowel resection Clinical Indicators: 84-year-old female who present from ECF on 02/19 with complaints of shortness of breath. Nutritional assessment per dietary on 85 documents nutrition intake poor 0% consumed, NPO X2 days. 02/20 Nurse note: patient exhibiting signs/symptoms of aspiration. 02/19 Labs: k+ 3.3, Glucose =132, CBG =139, total Protein 6.8, Albumin 3.6 Current BMI: 21.1 Insufficient energy intake: Yes Treatment Parenteral Nutrition 50 mls hr:recommend Dietary Consult Yes 02/20-02/22 Speech Patholigst eval: swallowing: patient poorly responsive, unable to participate Lab monitoring: CBC, lytes, daily Monitor I/O In your professional opinion, can you please clarify if these findings signify one of the following conditions? Mild Protein-Calorie Malnutrition Moderate Protein-Calorie Malnutrition Severe Protein-Calorie Malnutrition Other condition, please specify Unable to determine (Last Revision: January 2019) Moderate Protein-Calorie Malnutrition MTDD
[2020-02-23] MEDS: POTASSIUM CHLORIDE 10 MEQ in WATER FOR INJECTION 1 100ML.BAG IVPB SCH ×2 (14:57→16:09)
[2020-02-23] MEDS: MVI, ADULT NO.4 WITH VIT K 10 ML, TRACE (CONC-1ML/DOSE) 1 ML, POTASSIUM CHLORIDE 20 MEQ... IV SCH ×4 (16:49)
[2020-02-23] MEDS: FAT EMULSION 20% 250 ML IV SCH (16:49)
[2020-02-23] MEDS: lisinopriL 10 MG TAB PO SCH (16:50)
[2020-02-23] MEDS: risperiDONE ODT 2 MG TAB PO SCH (16:50)
[2020-02-23] MEDS: CLOPIDOGREL 75 MG TAB PO SCH (16:50)
[2020-02-23] MEDS: ATORVASTATIN 20 MG TAB PO SCH (16:50)
[2020-02-23] MEDS: AZITHROMYCIN 250 MG TAB PO SCH (16:50)
[2020-02-23] MEDS: RIVAROXABAN 15 MG TAB PO SCH (16:51)
[2020-02-23 18:05] LABS: Glucose,Whole Blood 169 mg/dL (75-99)
[2020-02-23 20:44] LABS: Glucose,Whole Blood 171 mg/dL (75-99)
[2020-02-24 00:17] LABS: Glucose,Whole Blood 183 mg/dL (75-99)
[2020-02-24] MEDS: IPRATROPIUM-ALBUTEROL 3 ML NEB INHALATION SCH ×6 (00:27→19:28)
[2020-02-24] MEDS: LEVOTHYROXINE 50 MCG TAB PO SCH (05:38)
[2020-02-24] MEDS: PANTOPRAZOLE 40 MG TABLET PO SCH (05:38)
[2020-02-24 05:43] LABS: Glucose,Whole Blood 162 mg/dL (75-99)
[2020-02-24] MEDS: methylPREDNISolone SOD SUCCI 40 MG/ML 1 ML VIAL IV SCH ×3 (05:45→20:25)
[2020-02-24] MEDS: INSULIN ASPART (NovoLOG) 100 UNIT/ML VIAL SQ SCH ×3 (05:45→18:06)
[2020-02-24] MEDS: BUDESONIDE 1 MG/2 ML NEBU INHALATION SCH ×2 (09:01→19:28)
[2020-02-24] MEDS: FORMOTEROL FUMARATE 20 MCG/2 ML NEBU INHALATION SCH ×2 (09:01→19:28)
[2020-02-24] MEDS: FUROSEMIDE 10 MG/ML 4 ML VIAL IV SCH (09:27)
[2020-02-24 10:02] LABS: African American GFR (CKD) >90 (>60 ml/min/1.73 sqM); Anion Gap 6 mmol/L; Blood Urea Nitrogen 40 mg/dL (7-17); Carbon Dioxide 32 mmol/L (22-30); Chloride 101 mmol/L (98-107); Glucose 171 mg/dL (74-99); Magnesium 2.2 mg/dL (1.6-2.3); Non-African American GFR(CKD) 79 (>60 ml/min/1.73 sqM); Phosphorus 3.7 mg/dL (2.5-4.5); Potassium 3.7 mmol/L (3.5-5.1); Sodium 139 mmol/L (137-145)
[2020-02-24] MEDS: POTASSIUM CHLORIDE 10 MEQ in WATER FOR INJECTION 1 100ML.BAG IVPB SCH ×2 (10:54→15:29)
[2020-02-24] MEDS: SODIUM CHLORIDE 0.9% 1,000 ML IV SCH (11:02)
[2020-02-24] MEDS: DONEPEZIL 5 MG TAB PO SCH (11:02)
[2020-02-24] MEDS: METOPROLOL SUCCINATE (ER) 25 MG TAB.ER.24H PO SCH (11:02)
[2020-02-24] MEDS: VITS A & D-WHITE PET-LANOLIN 5 GM OINT.PACK TOPICAL SCH (11:53)
[2020-02-24] MEDS: MVI, ADULT NO.4 WITH VIT K 10 ML, TRACE (CONC-1ML/DOSE) 1 ML, POTASSIUM CHLORIDE 20 MEQ... IV SCH ×4 (11:53)
[2020-02-24 11:57] LABS: Glucose,Whole Blood 174 mg/dL (75-99)
[2020-02-24] MEDS: LEVOTHYROXINE IVP 100 MCG/5 ML VIAL IV SCH (15:28)
[2020-02-24] MEDS: PANTOPRAZOLE 40 MG/10 ML VIAL IVP SCH (15:28)
[2020-02-24] MEDS: FAT EMULSION 20% 250 ML IV SCH (15:30)
[2020-02-24] MEDS: risperiDONE ODT 2 MG TAB PO SCH (16:03)
[2020-02-24] MEDS: lisinopriL 10 MG TAB PO SCH (16:03)
[2020-02-24] MEDS: AZITHROMYCIN 250 MG TAB PO SCH (16:03)
[2020-02-24] MEDS: CLOPIDOGREL 75 MG TAB PO SCH (16:03)
[2020-02-24] MEDS: RIVAROXABAN 15 MG TAB PO SCH (16:03)
[2020-02-24 18:01] LABS: Glucose,Whole Blood 149 mg/dL (75-99)
--- NOTE | 2020-02-24 21:20 | P.PN ---
Subjective Progress Note Date: 02/24/20 Pt was started on TPN yesterday, she is improved today, more alert trying to speak. Pt has been afebrile with stable vitals, O2 weaned to 2 L. Objective - Vital Signs Vital signs: Vital Signs Temp 98.9 F 02/24/20 20:00 Pulse 65 02/24/20 20:00 Resp 30 H 02/24/20 20:00 BP 117/56 02/24/20 20:00 Pulse Ox 96 02/24/20 20:00 Intake & Output 02/24/20 02/24/20 02/25/20 06:59 18:59 06:59 Intake Total 400 1383.333 Output Total 600 1750 Balance -200 -366.667 Weight 41.5 kg Intake: Intake, IV Titration 400 1383.333 Amount Fat Emulsion 20% 250 ml @ 160 60 20.833 mls/hr IV DAILY@ 1400 [facility] Rx#:[id number] Mvi, Adult No.4 with Vit 953.333 K 10 ml Trace (Conc-1Ml/ Dose) 1 ml Potassium Chloride 20 meq In Amino Acid 4.25%-D10w+Lytes*E* 1,000 ml @ 50 mls/hr IV . [id number] [facility] Rx#:[id number] Potassium Chloride 10 meq 200 In Water For Injection 1 100ml.bag @ 100 mls/hr IVPB Q1H [facility] Rx#: [id number] Potassium Chloride 10 meq 200 In Water For Injection 1 100ml.bag @ 100 mls/hr IVPB Q1H [facility] Rx#: [id number] Sodium Chloride 0.9% 1, 40 120 000 ml @ 40 mls/hr IV . Q24H [facility] Rx#:[id number] cefTRIAXone 1 gm In 50 Sodium Chloride 0.9% 50 ml @ 100 mls/hr IVPB Q24HR [facility] Rx#:[id number] Output: Urine 600 1750 Other: Voiding Method Diaper Incontinent # Voids 5 - Exam Gen: elderly female in no distress. On 2 L O2 CV: RRR, systolic murmur. Pulses 2+ Lungs: good effort, minimal rhonchi, no wheezing Ext: no edema Neuro: lethargic, rouses to voice - Labs CBC & Chem 7: 02/23/20 07:36 08/06/20 06:30 Labs: Abnormal Lab Results - Last 24 Hours (Table) 02/24/20 02/24/20 02/24/20 Range/Units 00:15 05:41 06:30 Carbon Dioxide 32 H (22-30) mmol/L BUN 40 H (7-17) mg/dL Glucose 171 H (74-99) mg/dL POC Glucose (mg/dL) 183 H 162 H (75-99) mg/dL 02/24/20 02/24/20 Range/Units 11:56 18:00 Carbon Dioxide (22-30) mmol/L BUN (7-17) mg/dL Glucose (74-99) mg/dL POC Glucose (mg/dL) 174 H 149 H (75-99) mg/dL Microbiology - Last 24 Hours (Table) 02/20/20 14:04 Blood Culture - Preliminary Blood No Growth after 96 hours Assessment and Plan (1) Acute hypoxemic respiratory failure Current Visit: Yes Status: Acute Code(s): J96.01 - ACUTE RESPIRATORY FAILURE WITH HYPOXIA SNOMED Code(s): 330907985 (2) Right lower lobe pneumonia Current Visit: Yes Status: Acute Code(s): J18.9 - PNEUMONIA, UNSPECIFIED ORGANISM SNOMED Code(s): 529190919 (3) COPD exacerbation Current Visit: Yes Status: Acute Code(s): J44.1 - CHRONIC OBSTRUCTIVE PULMONARY DISEASE W (ACUTE) EXACERBATION SNOMED Code(s): 241418879 (4) Coronary artery disease Current Visit: Yes Status: Acute Code(s): I25.10 - ATHSCL HEART DISEASE OF [place] CORONARY ARTERY W/O ANG PCTRS SNOMED Code(s): 95898584 (5) Metabolic encephalopathy Current Visit: Yes Status: Acute Code(s): G93.41 - METABOLIC ENCEPHALOPATHY SNOMED Code(s): 52319441 (6) Protein calorie malnutrition Current Visit: No Status: Acute Code(s): E46 - UNSPECIFIED PROTEIN-CALORIE MALNUTRITION SNOMED Code(s): 753590439 Plan: Continue with current management, TPN, IV rocephin and solumedrol. Continue to monitor
[2020-02-25] MEDS: IPRATROPIUM-ALBUTEROL 3 ML NEB INHALATION SCH ×6 (00:02→19:16)
[2020-02-25 00:07] LABS: Glucose,Whole Blood 156 mg/dL (75-99)
[2020-02-25] MEDS: INSULIN ASPART (NovoLOG) 100 UNIT/ML VIAL SQ SCH ×4 (00:18→18:02)
[2020-02-25] MEDS: methylPREDNISolone SOD SUCCI 40 MG/ML 1 ML VIAL IV SCH ×3 (05:26→20:31)
[2020-02-25 06:06] LABS: Glucose,Whole Blood 154 mg/dL (75-99)
[2020-02-25 06:23] LABS: Basophils % (A) 0 %; Eosinophils % (A) 0 %; HCT 44.1 % (34.0-46.0); HGB 13.3 gm/dL (11.4-16.0); Hypochromasia Slight; Lymphocytes # (A) 0.5 k/uL (1.0-4.8); Lymphocytes % (A) 3 %; MCH 28.1 pg (25.0-35.0); MCHC 30.2 g/dL (31.0-37.0); MCV 92.9 fL (80.0-100.0); Monocytes # (A) 0.7 k/uL (0-1.0); Monocytes % (A) 5 %; Neutrophils # (A) 13.9 k/uL (1.3-7.7); Neutrophils % (A) 90 %; Platelet Count 239 k/uL (150-450); RBC 4.75 m/uL (3.80-5.40); RDW 14.9 % (11.5-15.5); WBC 15.4 k/uL (3.8-10.6)
[2020-02-25 06:31] LABS: Albumin 3.5 g/dL (3.5-5.0); Calcium 9.1 mg/dL (8.4-10.2); Magnesium 2.4 mg/dL (1.6-2.3); Phosphorus 4.2 mg/dL (2.5-4.5); Potassium 4.6 mmol/L (3.5-5.1); Total Bilirubin 0.9 mg/dL (0.2-1.3); Total Protein 6.5 g/dL (6.3-8.2)
[2020-02-25] MEDS: BUDESONIDE 1 MG/2 ML NEBU INHALATION SCH ×2 (08:18→19:16)
[2020-02-25] MEDS: FORMOTEROL FUMARATE 20 MCG/2 ML NEBU INHALATION SCH ×2 (08:18→19:16)
[2020-02-25] MEDS: MVI, ADULT NO.4 WITH VIT K 10 ML, TRACE (CONC-1ML/DOSE) 1 ML, POTASSIUM CHLORIDE 20 MEQ... IV SCH ×4 (09:10)
[2020-02-25] MEDS: FUROSEMIDE 10 MG/ML 4 ML VIAL IV SCH (09:11)
[2020-02-25] MEDS: DONEPEZIL 5 MG TAB PO SCH (09:11)
[2020-02-25] MEDS: VITS A & D-WHITE PET-LANOLIN 5 GM OINT.PACK TOPICAL SCH (09:11)
[2020-02-25] MEDS: PANTOPRAZOLE 40 MG/10 ML VIAL IVP SCH (09:11)
[2020-02-25] MEDS: LEVOTHYROXINE IVP 100 MCG/5 ML VIAL IV SCH (09:15)
[2020-02-25 12:08] LABS: Glucose,Whole Blood 174 mg/dL (75-99)
[2020-02-25] MEDS: lisinopriL 10 MG TAB PO SCH (15:34)
[2020-02-25] MEDS: CLOPIDOGREL 75 MG TAB PO SCH (15:34)
[2020-02-25] MEDS: RIVAROXABAN 15 MG TAB PO SCH (15:34)
[2020-02-25] MEDS: AZITHROMYCIN 250 MG TAB PO SCH (15:34)
[2020-02-25] MEDS: risperiDONE ODT 2 MG TAB PO SCH (15:34)
[2020-02-25] MEDS: FAT EMULSION 20% 250 ML IV SCH (15:52)
[2020-02-25 17:54] LABS: Glucose,Whole Blood 143 mg/dL (75-99)
--- NOTE | 2020-02-25 22:07 | P.PN ---
Subjective Progress Note Date: 02/25/20 Her BUN and LFTs are elevated from yesterday. Pt remains obtunded although does rouse to voice. She remains on TPN, IV fluids and rocephin. Objective - Vital Signs Vital signs: Vital Signs Temp 98.7 F 02/25/20 20:00 Pulse 70 02/25/20 20:00 Resp 16 02/25/20 20:00 BP 88/60 02/25/20 20:00 Pulse Ox 97 02/25/20 20:00 Intake & Output 02/25/20 02/25/20 02/26/20 06:59 18:59 06:59 Intake Total 330 1021 240 Output Total 300 Balance 30 1021 240 Weight 47.5 kg 47.5 kg Intake: IV 240 Fat Emulsion 20% 250 ml @ 40 20.833 mls/hr IV DAILY@ 1400 [facility] Rx#:[id number] Mvi, Adult No.4 with Vit 100 K 10 ml Trace (Conc-1Ml/ Dose) 1 ml Potassium Chloride 20 meq In Amino Acid 4.25%-D10w+Lytes*E* 1,000 ml @ 50 mls/hr IV . [id number] [facility] Rx#:[id number] Sodium Chloride 0.9% 1, 100 000 ml @ 40 mls/hr IV . Q24H [facility] Rx#:[id number] Intake, IV Titration 330 1021 Amount Fat Emulsion 20% 250 ml @ 250 20.833 mls/hr IV DAILY@ 1400 [facility] Rx#:[id number] Mvi, Adult No.4 with Vit 1021 K 10 ml Trace (Conc-1Ml/ Dose) 1 ml Potassium Chloride 20 meq In Amino Acid 4.25%-D10w+Lytes*E* 1,000 ml @ 50 mls/hr IV . [id number] [facility] Rx#:[id number] Sodium Chloride 0.9% 1, 80 000 ml @ 40 mls/hr IV . Q24H [facility] Rx#:[id number] Output: Urine 300 Other: Voiding Method Diaper Diaper Diaper Incontinent Incontinent Incontinent # Voids 1 2 - Exam Gen: elderly female in no distress. On 2 L O2 CV: RRR, systolic murmur. Pulses 2+ Lungs: good effort, minimal rhonchi, no wheezing Ext: no edema Neuro: lethargic, rouses to voice - Labs CBC & Chem 7: 02/25/20 05:54 02/25/20 05:54 Labs: Abnormal Lab Results - Last 24 Hours (Table) 02/24/20 02/25/20 02/25/20 Range/Units 23:54 05:54 05:54 WBC 15.4 H (3.8-10.6) k/uL MCHC 30.2 L (31.0-37.0) g/dL Neutrophils # 13.9 H (1.3-7.7) k/uL Lymphocytes # 0.5 L (1.0-4.8) k/uL Carbon Dioxide 32 H (22-30) mmol/L BUN 52 H (7-17) mg/dL Glucose 168 H (74-99) mg/dL POC Glucose (mg/dL) 156 H (75-99) mg/dL Magnesium 2.4 H (1.6-2.3) mg/dL AST 79 H (14-36) U/L ALT 142 H (4-34) U/L 02/25/20 02/25/20 02/25/20 Range/Units 06:04 12:07 17:53 WBC (3.8-10.6) k/uL MCHC (31.0-37.0) g/dL Neutrophils # (1.3-7.7) k/uL Lymphocytes # (1.0-4.8) k/uL Carbon Dioxide (22-30) mmol/L BUN (7-17) mg/dL Glucose (74-99) mg/dL POC Glucose (mg/dL) 154 H 174 H 143 H (75-99) mg/dL Magnesium (1.6-2.3) mg/dL AST (14-36) U/L ALT (4-34) U/L Microbiology - Last 24 Hours (Table) 02/20/20 14:04 Blood Culture - Preliminary Blood No Growth after 120 hours Assessment and Plan (1) Acute hypoxemic respiratory failure Current Visit: Yes Status: Acute Code(s): J96.01 - ACUTE RESPIRATORY FAILURE WITH HYPOXIA SNOMED Code(s): 203971737 (2) Right lower lobe pneumonia Current Visit: Yes Status: Acute Code(s): J18.9 - PNEUMONIA, UNSPECIFIED ORGANISM SNOMED Code(s): 833638042 (3) COPD exacerbation Current Visit: Yes Status: Acute Code(s): J44.1 - CHRONIC OBSTRUCTIVE PULMONARY DISEASE W (ACUTE) EXACERBATION SNOMED Code(s): 265403086 (4) Coronary artery disease Current Visit: Yes Status: Acute Code(s): I25.10 - ATHSCL HEART DISEASE OF [place] CORONARY ARTERY W/O ANG PCTRS SNOMED Code(s): 14131168 (5) Metabolic encephalopathy Current Visit: Yes Status: Acute Code(s): G93.41 - METABOLIC ENCEPHALOPATHY SNOMED Code(s): 56160035 (6) Protein calorie malnutrition Current Visit: No Status: Acute Code(s): E46 - UNSPECIFIED PROTEIN-CALORIE MALNUTRITION SNOMED Code(s): 985692605 Plan: Decrease TPN to 40 cc/hr, increase NS to 50 cc/hr. Continue IV fluids, steroids and lasix. Discussion with family, consider hospice based on response
[2020-02-25] MEDS: SODIUM CHLORIDE 0.9% 1,000 ML IV SCH (23:12)
[2020-02-26 00:07] LABS: Glucose,Whole Blood 165 mg/dL (75-99)
[2020-02-26] MEDS: INSULIN ASPART (NovoLOG) 100 UNIT/ML VIAL SQ SCH ×4 (00:33→18:00)
[2020-02-26] MEDS: IPRATROPIUM-ALBUTEROL 3 ML NEB INHALATION SCH ×6 (03:12→23:14)
[2020-02-26 06:04] LABS: Glucose,Whole Blood 138 mg/dL (75-99)
[2020-02-26 07:27] LABS: ALT 157 U/L (4-34); AST 107 U/L (14-36); African American GFR (CKD) >90 (>60 ml/min/1.73 sqM); Albumin 3.3 g/dL (3.5-5.0); Alkaline Phosphatase 71 U/L (38-126); Anion Gap 7 mmol/L; Blood Urea Nitrogen 58 mg/dL (7-17); Carbon Dioxide 28 mmol/L (22-30); Chloride 104 mmol/L (98-107); Glucose 148 mg/dL (74-99); Magnesium 2.5 mg/dL (1.6-2.3); Non-African American GFR(CKD) 81 (>60 ml/min/1.73 sqM); Phosphorus 4.6 mg/dL (2.5-4.5); Potassium 5.1 mmol/L (3.5-5.1); Sodium 139 mmol/L (137-145); Total Bilirubin 1.2 mg/dL (0.2-1.3); Total Protein 6.4 g/dL (6.3-8.2)
[2020-02-26] MEDS: BUDESONIDE 1 MG/2 ML NEBU INHALATION SCH ×2 (08:06→20:11)
[2020-02-26] MEDS: FORMOTEROL FUMARATE 20 MCG/2 ML NEBU INHALATION SCH ×2 (08:06→20:11)
[2020-02-26] MEDS: DONEPEZIL 5 MG TAB PO SCH (08:28)
[2020-02-26] MEDS: MVI, ADULT NO.4 WITH VIT K 10 ML, TRACE (CONC-1ML/DOSE) 1 ML, POTASSIUM CHLORIDE 20 MEQ... IV SCH ×4 (08:34)
[2020-02-26 08:36] LABS: HCT 45.7 % (34.0-46.0); HGB 13.8 gm/dL (11.4-16.0); Hypochromasia Marked; MCHC 30.2 g/dL (31.0-37.0); MCV 95.8 fL (80.0-100.0); Mean Platelet Volume 10.6; Platelet Count 164 k/uL (150-450); RBC 4.77 m/uL (3.80-5.40); RDW 14.8 % (11.5-15.5); WBC 14.7 k/uL (3.8-10.6)
[2020-02-26] MEDS: FUROSEMIDE 10 MG/ML 4 ML VIAL IV SCH (08:39)
[2020-02-26] MEDS: methylPREDNISolone SOD SUCCI 40 MG/ML 1 ML VIAL IV SCH ×2 (08:47→22:14)
[2020-02-26] MEDS: LEVOTHYROXINE IVP 100 MCG/5 ML VIAL IV SCH (08:52)
[2020-02-26] MEDS: VITS A & D-WHITE PET-LANOLIN 5 GM OINT.PACK TOPICAL SCH (08:56)
[2020-02-26] MEDS: PANTOPRAZOLE 40 MG/10 ML VIAL IVP SCH (08:56)
[2020-02-26 11:06] LABS: Band Neutrophils % 1 %; Lymphocytes # (M) 0.15 k/uL (1.0-4.8); Monocytes # (M) 0.74 k/uL (0-1.0); Neutrophils % (M) 93 %; Nucleated Red Blood Cells 0 /100 WBC (0-0); Total Cells Counted 100
[2020-02-26 11:58] LABS: Glucose,Whole Blood 150 mg/dL (75-99)
[2020-02-26] MEDS ORDERED: MVI, ADULT NO.4 WITH VIT K 10 ML, TRACE (CONC-1ML/DOSE) 1 ML, SODIUM CHLORIDE 2.5MEQ/ML... IV SCH ×5 (12:00)
[2020-02-26] MEDS: FAT EMULSION 20% 250 ML IV SCH (14:50)
[2020-02-26] MEDS: risperiDONE ODT 2 MG TAB PO SCH (15:19)
[2020-02-26] MEDS: AZITHROMYCIN 250 MG TAB PO SCH (15:19)
[2020-02-26] MEDS: SODIUM CHLORIDE 0.9% 1,000 ML IV SCH (16:40)
[2020-02-26 17:24] LABS: Glucose,Whole Blood 146 mg/dL (75-99)
[2020-02-26 20:28] LABS: Glucose,Whole Blood 121 mg/dL (75-99)
--- NOTE | 2020-02-26 22:46 | P.PN ---
Subjective Progress Note Date: 02/26/20 Her BUN and LFTs remain elevated today. Pt remains obtunded and rouses to voice. She remains on TPN, IV fluids and rocephin. She has remained afebrile. Objective - Vital Signs Vital signs: Vital Signs Temp 98.7 F 02/26/20 20:00 Pulse 76 02/26/20 20:33 Resp 19 02/26/20 20:00 BP 104/58 02/26/20 20:00 Pulse Ox 100 02/26/20 20:00 Intake & Output 02/26/20 02/26/20 02/27/20 06:59 18:59 06:59 Intake Total 1261 800 Output Total 600 1000 Balance 661 -200 Weight 45 kg Intake: IV 240 800 Fat Emulsion 20% 250 ml @ 40 20.833 mls/hr IV DAILY@ 1400 [facility] Rx#:[id number] Mvi, Adult No.4 with Vit 100 320 K 10 ml Trace (Conc-1Ml/ Dose) 1 ml Potassium Chloride 20 meq In Amino Acid 4.25%-D10w+Lytes*E* 1,000 ml @ 40 mls/hr IV . Q24H [facility] Rx#:[id number] Sodium Chloride 0.9% 1, 100 000 ml @ 40 mls/hr IV . Q24H [facility] Rx#:[id number] Sodium Chloride 0.9% 1, 480 000 ml @ 60 mls/hr IV . [id number] [facility] Rx#:[id number] Intake, IV Titration 1021 Amount Mvi, Adult No.4 with Vit 1021 K 10 ml Trace (Conc-1Ml/ Dose) 1 ml Potassium Chloride 20 meq In Amino Acid 4.25%-D10w+Lytes*E* 1,000 ml @ 40 mls/hr IV . Q24H [facility] Rx#:[id number] Output: Urine 600 1000 Other: Voiding Method Diaper Diaper Diaper Incontinent Incontinent Incontinent - Exam Gen: elderly female in no distress. On 2 L O2 CV: RRR, systolic murmur. Pulses 2+ Lungs: good effort, minimal rhonchi, no wheezing Ext: no edema Neuro: lethargic, rouses to voice - Labs CBC & Chem 7: 02/26/20 06:20 02/26/20 06:20 Labs: Abnormal Lab Results - Last 24 Hours (Table) 02/26/20 02/26/20 02/26/20 Range/Units 00:05 06:02 06:20 WBC (3.8-10.6) k/uL MCHC (31.0-37.0) g/dL Neutrophils # (Manual) (1.3-7.7) k/uL Lymphocytes # (Manual) (1.0-4.8) k/uL BUN 58 H (7-17) mg/dL Glucose 148 H (74-99) mg/dL POC Glucose (mg/dL) 165 H 138 H (75-99) mg/dL Phosphorus 4.6 H (2.5-4.5) mg/dL Magnesium 2.5 H (1.6-2.3) mg/dL AST 107 H (14-36) U/L ALT 157 H (4-34) U/L Albumin 3.3 L (3.5-5.0) g/dL 02/26/20 02/26/20 02/26/20 Range/Units 06:20 11:56 17:23 WBC 14.7 H (3.8-10.6) k/uL MCHC 30.2 L (31.0-37.0) g/dL Neutrophils # (Manual) 13.80 H (1.3-7.7) k/uL Lymphocytes # (Manual) 0.15 L (1.0-4.8) k/uL BUN (7-17) mg/dL Glucose (74-99) mg/dL POC Glucose (mg/dL) 150 H 146 H (75-99) mg/dL Phosphorus (2.5-4.5) mg/dL Magnesium (1.6-2.3) mg/dL AST (14-36) U/L ALT (4-34) U/L Albumin (3.5-5.0) g/dL 02/26/20 Range/Units 20:25 WBC (3.8-10.6) k/uL MCHC (31.0-37.0) g/dL Neutrophils # (Manual) (1.3-7.7) k/uL Lymphocytes # (Manual) (1.0-4.8) k/uL BUN (7-17) mg/dL Glucose (74-99) mg/dL POC Glucose (mg/dL) 121 H (75-99) mg/dL Phosphorus (2.5-4.5) mg/dL Magnesium (1.6-2.3) mg/dL AST (14-36) U/L ALT (4-34) U/L Albumin (3.5-5.0) g/dL Microbiology - Last 24 Hours (Table) 02/20/20 14:04 Blood Culture - Final Blood No Growth after 144 hours Assessment and Plan (1) Acute hypoxemic respiratory failure Current Visit: Yes Status: Acute Code(s): J96.01 - ACUTE RESPIRATORY FAILURE WITH HYPOXIA SNOMED Code(s): 591907516 (2) Right lower lobe pneumonia Current Visit: Yes Status: Acute Code(s): J18.9 - PNEUMONIA, UNSPECIFIED ORGANISM SNOMED Code(s): 281955295 (3) COPD exacerbation Current Visit: Yes Status: Acute Code(s): J44.1 - CHRONIC OBSTRUCTIVE PULMONARY DISEASE W (ACUTE) EXACERBATION SNOMED Code(s): 559039759 (4) Coronary artery disease Current Visit: Yes Status: Acute Code(s): I25.10 - ATHSCL HEART DISEASE OF [place] CORONARY ARTERY W/O ANG PCTRS SNOMED Code(s): 12721793 (5) Metabolic encephalopathy Current Visit: Yes Status: Acute Code(s): G93.41 - METABOLIC ENCEPHALOPATHY SNOMED Code(s): 29068847 (6) Protein calorie malnutrition Current Visit: No Status: Acute Code(s): E46 - UNSPECIFIED PROTEIN-CALORIE MALNUTRITION SNOMED Code(s): 005149547 Plan: Stop lasix. Continue TPN at 40 cc/hr, increase NS to 60 cc/hr. Continue IV steroids. Will continue with current management at this time, anticipate transition to hospice based on response.
[2020-02-27 00:15] LABS: Glucose,Whole Blood 140 mg/dL (75-99)
[2020-02-27] MEDS: INSULIN ASPART (NovoLOG) 100 UNIT/ML VIAL SQ SCH ×4 (00:16→17:34)
[2020-02-27] MEDS: IPRATROPIUM-ALBUTEROL 3 ML NEB INHALATION SCH ×2 (03:40→08:25)
[2020-02-27 06:17] LABS: Glucose,Whole Blood 151 mg/dL (75-99)
[2020-02-27 06:53] LABS: ALT 192 U/L (4-34); AST 138 U/L (14-36); African American GFR (CKD) >90 (>60 ml/min/1.73 sqM); Alkaline Phosphatase 62 U/L (38-126); Anion Gap 2 mmol/L; Blood Urea Nitrogen 58 mg/dL (7-17); Calcium 8.6 mg/dL (8.4-10.2); Carbon Dioxide 30 mmol/L (22-30); Chloride 107 mmol/L (98-107); Glucose 164 mg/dL (74-99); Magnesium 2.3 mg/dL (1.6-2.3); Non-African American GFR(CKD) 82 (>60 ml/min/1.73 sqM); Phosphorus 4.1 mg/dL (2.5-4.5); Potassium 4.5 mmol/L (3.5-5.1); Sodium 139 mmol/L (137-145); Total Bilirubin 1.6 mg/dL (0.2-1.3); Total Protein 5.9 g/dL (6.3-8.2)
[2020-02-27 07:23] LABS: Basophils % (A) 0 %; Eosinophils % (A) 0 %; HCT 42.7 % (34.0-46.0); Hypochromasia Moderate; Lymphocytes # (A) 0.4 k/uL (1.0-4.8); Lymphocytes % (A) 2 %; MCH 28.6 pg (25.0-35.0); MCHC 30.4 g/dL (31.0-37.0); MCV 94.1 fL (80.0-100.0); Monocytes # (A) 0.6 k/uL (0-1.0); Monocytes % (A) 4 %; Neutrophils # (A) 14.3 k/uL (1.3-7.7); Neutrophils % (A) 93 %; Platelet Count 162 k/uL (150-450); RBC 4.54 m/uL (3.80-5.40); RDW 15.1 % (11.5-15.5); WBC 15.4 k/uL (3.8-10.6)
[2020-02-27] MEDS: FORMOTEROL FUMARATE 20 MCG/2 ML NEBU INHALATION SCH (08:25)
[2020-02-27] MEDS: BUDESONIDE 1 MG/2 ML NEBU INHALATION SCH (08:26)
[2020-02-27] MEDS: PANTOPRAZOLE 40 MG/10 ML VIAL IVP SCH (10:23)
[2020-02-27] MEDS: methylPREDNISolone SOD SUCCI 40 MG/ML 1 ML VIAL IV SCH ×2 (10:23→21:08)
[2020-02-27] MEDS: ACETAMINOPHEN IV (For NPO) 650 MG in EMPTY BAG 1 BAG IVPB PRN ×2 (10:24→16:29)
[2020-02-27] MEDS: LEVOTHYROXINE IVP 100 MCG/5 ML VIAL IV SCH (10:24)
[2020-02-27] MEDS: DONEPEZIL 5 MG TAB PO SCH (10:25)
[2020-02-27] MEDS: VITS A & D-WHITE PET-LANOLIN 5 GM OINT.PACK TOPICAL SCH (10:32)
[2020-02-27 11:55] LABS: Glucose,Whole Blood 111 mg/dL (75-99)
[2020-02-27] MEDS: MVI, ADULT NO.4 WITH VIT K 10 ML, TRACE (CONC-1ML/DOSE) 1 ML, PARENTERAL ELECTROLYTES 2... IV SCH ×4 (13:26)
[2020-02-27] MEDS: AZITHROMYCIN 250 MG TAB PO SCH (16:29)
[2020-02-27] MEDS: SODIUM CHLORIDE 0.9% 1,000 ML IV SCH (16:30)
[2020-02-27] MEDS ORDERED: ERGOCALCIFEROL 50,000 UNIT CAP PO SCH (17:00)
[2020-02-27] MEDS ORDERED: ENOXAPARIN 40 MG/0.4 ML SYRINGE SQ SCH (18:15)
[2020-02-27 18:58] LABS: Glucose,Whole Blood 139 mg/dL (75-99)
[2020-02-27] MEDS: AZITHROMYCIN 500 MG in SODIUM CHLORIDE 0.9% 250 ML IVPB SCH (21:08)
--- NOTE | 2020-02-27 21:49 | P.PN ---
Subjective Progress Note Date: 02/27/20 She has been intermittently febrile and tachypneic today. Her SpO2 and BP are stable. Renal and hepatic function stable from previous. She remains lethargic though rouses to voice. Objective - Vital Signs Vital signs: Vital Signs Temp 98.5 F 02/27/20 19:37 Pulse 65 02/27/20 19:37 Resp 22 02/27/20 19:37 BP 116/64 02/27/20 19:37 Pulse Ox 96 02/27/20 19:37 Intake & Output 02/27/20 02/27/20 02/28/20 06:59 18:59 06:59 Intake Total 1320 Output Total 600 450 Balance -600 870 Weight 49.5 kg Intake: IV 1120 Mvi, Adult No.4 with Vit 440 K 10 ml Trace (Conc-1Ml/ Dose) 1 ml Potassium Chloride 20 meq In Amino Acid 4.25%-D10w+Lytes*E* 1,000 ml @ 40 mls/hr IV . Q24H [facility] Rx#:[id number] Sodium Chloride 0.9% 1, 680 000 ml @ 60 mls/hr IV . [id number] [facility] Rx#:[id number] Intake, IV Titration 200 Amount ACETAMINOPHEN IV (For NPO 200 ) 650 mg In Empty Bag 1 bag @ 260 mls/hr IVPB Q6HR [facility] Rx#:[id number] Output: Urine 600 450 Other: Voiding Method Diaper Diaper Diaper Incontinent Incontinent Incontinent - Exam Gen: elderly female in no distress. On 2 L O2 CV: RRR, systolic murmur. Pulses 2+ Lungs: good effort, minimal rhonchi, no wheezing Ext: no edema Neuro: lethargic, rouses to voice - Labs CBC & Chem 7: 02/27/20 06:08 02/27/20 06:08 Labs: Abnormal Lab Results - Last 24 Hours (Table) 02/27/20 02/27/20 02/27/20 Range/Units 00:13 06:08 06:08 WBC 15.4 H (3.8-10.6) k/uL MCHC 30.4 L (31.0-37.0) g/dL Neutrophils # 14.3 H (1.3-7.7) k/uL Lymphocytes # 0.4 L (1.0-4.8) k/uL D-Dimer (<0.60) mg/L FEU BUN 58 H (7-17) mg/dL Glucose 164 H (74-99) mg/dL POC Glucose (mg/dL) 140 H (75-99) mg/dL Total Bilirubin 1.6 H (0.2-1.3) mg/dL AST 138 H (14-36) U/L ALT 192 H (4-34) U/L Total Protein 5.9 L (6.3-8.2) g/dL Albumin 3.0 L (3.5-5.0) g/dL 02/27/20 02/27/20 02/27/20 Range/Units 06:16 11:53 18:39 WBC (3.8-10.6) k/uL MCHC (31.0-37.0) g/dL Neutrophils # (1.3-7.7) k/uL Lymphocytes # (1.0-4.8) k/uL D-Dimer 14.46 H (<0.60) mg/L FEU BUN (7-17) mg/dL Glucose (74-99) mg/dL POC Glucose (mg/dL) 151 H 111 H (75-99) mg/dL Total Bilirubin (0.2-1.3) mg/dL AST (14-36) U/L ALT (4-34) U/L Total Protein (6.3-8.2) g/dL Albumin (3.5-5.0) g/dL 02/27/20 Range/Units 18:55 WBC (3.8-10.6) k/uL MCHC (31.0-37.0) g/dL Neutrophils # (1.3-7.7) k/uL Lymphocytes # (1.0-4.8) k/uL D-Dimer (<0.60) mg/L FEU BUN (7-17) mg/dL Glucose (74-99) mg/dL POC Glucose (mg/dL) 139 H (75-99) mg/dL Total Bilirubin (0.2-1.3) mg/dL AST (14-36) U/L ALT (4-34) U/L Total Protein (6.3-8.2) g/dL Albumin (3.5-5.0) g/dL Assessment and Plan (1) Acute hypoxemic respiratory failure Current Visit: Yes Status: Acute Code(s): J96.01 - ACUTE RESPIRATORY FAILURE WITH HYPOXIA SNOMED Code(s): 389264091 (2) Right lower lobe pneumonia Current Visit: Yes Status: Acute Code(s): J18.9 - PNEUMONIA, UNSPECIFIED ORGANISM SNOMED Code(s): 146929510 (3) COPD exacerbation Current Visit: Yes Status: Acute Code(s): J44.1 - CHRONIC OBSTRUCTIVE PULMONARY DISEASE W (ACUTE) EXACERBATION SNOMED Code(s): 642931752 (4) Coronary artery disease Current Visit: Yes Status: Acute Code(s): I25.10 - ATHSCL HEART DISEASE OF [place] CORONARY ARTERY W/O ANG PCTRS SNOMED Code(s): 17788939 (5) Metabolic encephalopathy Current Visit: Yes Status: Acute Code(s): G93.41 - METABOLIC ENCEPHALOPATHY SNOMED Code(s): 47241714 (6) Protein calorie malnutrition Current Visit: No Status: Acute Code(s): E46 - UNSPECIFIED PROTEIN-CALORIE MALNUTRITION SNOMED Code(s): 500490195 Plan: Increase fluids and discontinue lipids. Recheck d-dimer and procalcitonin. IV tylenol for fever. Lovenox. Continue abx
[2020-02-28 00:03] LABS: Glucose,Whole Blood 125 mg/dL (75-99)
[2020-02-28] MEDS: INSULIN ASPART (NovoLOG) 100 UNIT/ML VIAL SQ SCH ×4 (00:48→18:04)
[2020-02-28] MEDS: SODIUM CHLORIDE 0.9% 1,000 ML IV SCH ×2 (05:20→15:01)
[2020-02-28 06:12] LABS: Glucose,Whole Blood 136 mg/dL (75-99)
[2020-02-28] MEDS: ACETAMINOPHEN IV (For NPO) 650 MG in EMPTY BAG 1 BAG IVPB PRN (06:34)
[2020-02-28] MEDS: DONEPEZIL 5 MG TAB PO SCH (07:33)
[2020-02-28 07:55] LABS: African American GFR (CKD) >90 (>60 ml/min/1.73 sqM); Anion Gap 4 mmol/L; Blood Urea Nitrogen 49 mg/dL (7-17); Calcium 8.3 mg/dL (8.4-10.2); Carbon Dioxide 25 mmol/L (22-30); Chloride 111 mmol/L (98-107); Glucose 149 mg/dL (74-99); Magnesium 2.3 mg/dL (1.6-2.3); Non-African American GFR(CKD) 82 (>60 ml/min/1.73 sqM); Phosphorus 2.4 mg/dL (2.5-4.5); Potassium 4.6 mmol/L (3.5-5.1); Sodium 140 mmol/L (137-145)
[2020-02-28] MEDS: LEVOTHYROXINE IVP 100 MCG/5 ML VIAL IV SCH (09:07)
[2020-02-28] MEDS: methylPREDNISolone SOD SUCCI 40 MG/ML 1 ML VIAL IV SCH ×2 (09:10→20:27)
[2020-02-28] MEDS: PANTOPRAZOLE 40 MG/10 ML VIAL IVP SCH (09:10)
[2020-02-28] MEDS: VITS A & D-WHITE PET-LANOLIN 5 GM OINT.PACK TOPICAL SCH (09:38)
[2020-02-28] MEDS: ENOXAPARIN 40 MG/0.4 ML SYRINGE SQ SCH ×2 (09:39→20:26)
--- NOTE | 2020-02-28 10:47 | CT ---
EXAMINATION TYPE: CT brain wo con DATE OF EXAM: 02/28/2020 HISTORY: Altered mental status. Possible CVA. CT DLP: 1135.4 mGycm. Automated Exposure Control for Dose Reduction was Utilized. TECHNIQUE: CT scan of the head is performed without contrast. COMPARISON: CT brain April 08, 2019. FINDINGS: There is no acute intracranial hemorrhage or midline shift identified. There is diffuse v entricular and sulcal prominence consistent with diffuse age-related cerebral atrophy. There is low- attenuation in the periventricular white matter consistent with chronic small vessel ischemic change. New large area of sulcal effacement and davis-white matter blurring right parietal temporal lobes. T he globes are intact and the visualized sinuses are clear. Vascular distal internal carotid arteries bilaterally is incidentally noted. IMPRESSION: No acute intracranial hemorrhage or midline shift. There is evolving acute/subacute lar ge right-sided infarct in the MCA distribution involving nearly entire temporal and majority of right parietal lobe on background diffuse reflecting chronic small vessel ischemic change along with small er old right-sided MCA distribution infarct. Critical results of acute infarct discussed with patient's nurse via telephone at time of dictation. A Document Only message has been documented for Wm Kim MD in the [employer] [facility] system on 02/28/2020 10:44 AM, Message ID [id number].
[2020-02-28 12:21] LABS: Glucose,Whole Blood 136 mg/dL (75-99)
[2020-02-28 13:03] VITALS: BMI 22.1
[2020-02-28] MEDS: SODIUM ACETATE IV SCH ×7 (13:19)
[2020-02-28] MEDS: POTASSIUM PHOSPHATE IV SCH ×7 (13:19)
[2020-02-28] MEDS: [UNRECOGNIZED DRUG - OTHER] IV SCH ×7 (13:19)
[2020-02-28] MEDS: CALCIUM GLUCONATE IV SCH ×7 (13:19)
[2020-02-28] MEDS: MVI, ADULT NO.4 WITH VIT K 10 ML, TRACE (CONC-1ML/DOSE) 1 ML, PARENTERAL ELECTROLYTES 2... IV SCH ×4 (13:26)
[2020-02-28] MEDS: AZITHROMYCIN 500 MG in SODIUM CHLORIDE 0.9% 250 ML IVPB SCH (17:18)
[2020-02-28 17:47] LABS: Glucose,Whole Blood 123 mg/dL (75-99)
--- NOTE | 2020-02-28 22:04 | P.PN ---
Subjective Progress Note Date: 02/28/20 Her vitals have been stable today, she remains lethargic and rouses but unable to communicate. CT head performed today which did show R MCA distribution infarct involving the temporal and parietal lobes. Objective - Vital Signs Vital signs: Vital Signs Temp 98.2 F 02/28/20 20:18 Pulse 80 02/28/20 20:18 Resp 16 02/28/20 20:18 BP 98/72 02/28/20 20:18 Pulse Ox 96 02/28/20 20:18 Intake & Output 02/28/20 02/28/20 02/29/20 06:59 18:59 06:59 Intake Total 0 2460 Output Total 1 975 Balance -1 1485 Weight 51.5 kg 51.5 kg Intake: IV 2210 Fat Emulsion 20% 250 ml @ 250 20.833 mls/hr IV DAILY@ 1400 BEN Rx#:[id number] Mvi, Adult No.4 with Vit 1000 K 10 ml Trace (Conc-1Ml/ Dose) 1 ml Potassium Chloride 20 meq In Amino Acid 4.25%-D10w+Lytes*E* 1,000 ml @ 40 mls/hr IV . Q24H BEN Rx#:[id number] Sodium Chloride 0.9% 1, 960 000 ml @ 80 mls/hr IV . [id number] BEN Rx#:[id number] Intake, IV Titration 250 Amount Azithromycin 500 mg In 250 Sodium Chloride 0.9% 250 ml @ 250 mls/hr IVPB Q24H BEN Rx#:[id number] Oral 0 Output: Urine 1 975 Other: Voiding Method Diaper Diaper Diaper Incontinent Incontinent Incontinent # Voids 2 - Exam Gen: elderly female in no distress. On 2 L O2 CV: RRR, systolic murmur. Pulses 2+ Lungs: good effort, minimal rhonchi, no wheezing Ext: no edema Neuro: lethargic, rouses to voice - Labs CBC & Chem 7: 02/27/20 06:08 02/28/20 06:55 Labs: Abnormal Lab Results - Last 24 Hours (Table) 02/27/20 02/27/20 02/28/20 Range/Units 18:39 23:43 06:09 Chloride (98-107) mmol/L BUN (7-17) mg/dL Glucose (74-99) mg/dL POC Glucose (mg/dL) 125 H 136 H (75-99) mg/dL Calcium (8.4-10.2) mg/dL Phosphorus (2.5-4.5) mg/dL Procalcitonin 0.62 H (0.02-0.09) ng/mL 02/28/20 02/28/20 02/28/20 Range/Units 06:55 12:17 17:42 Chloride 111 H (98-107) mmol/L BUN 49 H (7-17) mg/dL Glucose 149 H (74-99) mg/dL POC Glucose (mg/dL) 136 H 123 H (75-99) mg/dL Calcium 8.3 L (8.4-10.2) mg/dL Phosphorus 2.4 L (2.5-4.5) mg/dL Procalcitonin (0.02-0.09) ng/mL Assessment and Plan (1) Acute hypoxemic respiratory failure Current Visit: Yes Status: Acute Code(s): J96.01 - ACUTE RESPIRATORY FAILURE WITH HYPOXIA SNOMED Code(s): 689373273 (2) Right lower lobe pneumonia Current Visit: Yes Status: Acute Code(s): J18.9 - PNEUMONIA, UNSPECIFIED ORGANISM SNOMED Code(s): 286094575 (3) COPD exacerbation Current Visit: Yes Status: Acute Code(s): J44.1 - CHRONIC OBSTRUCTIVE PULMONARY DISEASE W (ACUTE) EXACERBATION SNOMED Code(s): 128272658 (4) Coronary artery disease Current Visit: Yes Status: Acute Code(s): I25.10 - ATHSCL HEART DISEASE OF [place] CORONARY ARTERY W/O ANG PCTRS SNOMED Code(s): 91896643 (5) Metabolic encephalopathy Current Visit: Yes Status: Acute Code(s): G93.41 - METABOLIC ENCEPHALOPATHY SNOMED Code(s): 60984271 (6) Protein calorie malnutrition Current Visit: No Status: Acute Code(s): E46 - UNSPECIFIED PROTEIN-CALORIE MALNUTRITION SNOMED Code(s): 763487544 Plan: Continue IV fluids, antibiotics and lovenox at this time. Discussed results of her CT scan with family and family will speak with case management about hospice options. Continue PPN at this time
[2020-02-29 00:32] LABS: Glucose,Whole Blood 127 mg/dL (75-99)
[2020-02-29] MEDS: INSULIN ASPART (NovoLOG) 100 UNIT/ML VIAL SQ SCH ×5 (00:34→11:09)
[2020-02-29] MEDS ORDERED: MORPHINE SULFATE 2 MG/ML SYRINGE IVP STA (06:12)
[2020-02-29 06:18] LABS: Glucose,Whole Blood 179 mg/dL (75-99)
[2020-02-29] MEDS: SODIUM CHLORIDE 0.9% 1,000 ML IV SCH (06:24)
[2020-02-29 07:48] LABS: African American GFR (CKD) >90 (>60 ml/min/1.73 sqM); Anion Gap 6 mmol/L; Blood Urea Nitrogen 41 mg/dL (7-17); Calcium 8.2 mg/dL (8.4-10.2); Carbon Dioxide 23 mmol/L (22-30); Chloride 114 mmol/L (98-107); Glucose 185 mg/dL (74-99); Magnesium 2.4 mg/dL (1.6-2.3); Non-African American GFR(CKD) 88 (>60 ml/min/1.73 sqM); Potassium 4.5 mmol/L (3.5-5.1); Sodium 143 mmol/L (137-145)
[2020-02-29] MEDS: DONEPEZIL 5 MG TAB PO SCH (07:49)
[2020-02-29] MEDS: LEVOTHYROXINE IVP 100 MCG/5 ML VIAL IV SCH (07:50)
[2020-02-29] MEDS: ENOXAPARIN 40 MG/0.4 ML SYRINGE SQ SCH ×2 (07:50→11:08)
[2020-02-29] MEDS: methylPREDNISolone SOD SUCCI 40 MG/ML 1 ML VIAL IV SCH (07:50)
[2020-02-29] MEDS: PANTOPRAZOLE 40 MG/10 ML VIAL IVP SCH (07:50)
[2020-02-29] MEDS: VITS A & D-WHITE PET-LANOLIN 5 GM OINT.PACK TOPICAL SCH (07:51)
[2020-02-29 09:13] VITALS: BP 101/78; RESP 22; TEMP 98.4
[2020-02-29] MEDS ORDERED: MORPHINE ORAL SOLN 10 MG/5 ML CUP PO PRN (10:58)
[2020-02-29 11:06] VITALS: PULSE 70
[2020-02-29] MEDS: [UNRECOGNIZED DRUG - OTHER] IV SCH ×7 (11:08)
[2020-02-29] MEDS: SODIUM ACETATE IV SCH ×7 (11:08)
[2020-02-29] MEDS: AZITHROMYCIN 500 MG in SODIUM CHLORIDE 0.9% 250 ML IVPB SCH (11:08)
[2020-02-29] MEDS: CALCIUM GLUCONATE IV SCH ×7 (11:08)
[2020-02-29] MEDS: POTASSIUM PHOSPHATE IV SCH ×7 (11:08)
--- NOTE | 2020-02-29 13:51 | P.DS ---
Providers Date of admission: 02/20/20 15:42 Expected date of discharge: 02/29/20 Attending physician: Marcus Loaiza MD Primary care physician: Heidi Kyle - Discharge Diagnosis(es) (1) Acute hypoxemic respiratory failure Current Visit: No Status: Acute (2) Right lower lobe pneumonia Current Visit: No Status: Acute (3) COPD exacerbation Current Visit: No Status: Acute (4) Coronary artery disease Current Visit: No Status: Acute (5) Metabolic encephalopathy Current Visit: No Status: Acute (6) Protein calorie malnutrition Current Visit: No Status: Acute (7) Cerebrovascular accident (CVA) Current Visit: No Status: Acute Onset Date: 07/06/15 Hospital Course: Pauline Loiaza is an 84 yo F with PMH of CAD, RI, COPD, CVA who presented to the ED from her F with worsening cough and shortness of breath over the past few days. She had been on azithromycin and prednisone as an outpatient but her breathing had worsened and her SpO2 was noted to be 90% at rehab and 85% by paramedics. On her initial presentation she was hypoxic and tachypneic, CXR with interstitial prominence, WBC 10.8, COVID negative. Pt was admitted and started on broad spectrum antibiotics and steroids. She did spike several fevers which were controlled with acetaminophen. Pt's respiratory status did improve but her mentation worsened. She remained lethargic and would rouse only to voice, additionally R ptosis and LUE flexion deformity became pronounced throughout her stay. A CT head was performed which showed extensive R MCA infarct. Upon discussion with family, pt was transitioned to hospice. She is discharged on comfort care to [facility] and will use morphine and ativan prn for dyspnea or agitation. Patient Condition at Discharge: Critical Plan - Discharge Summary New Discharge Prescriptions: Discontinued Aspirin 81 mg PO DAILY PRN PRN Reason: Chest Pain Metoprolol Succinate (ER) [Toprol XL] 25 mg PO DAILY@0800 Ergocalciferol (Vitamin D2) [Vitamin D2] 50,000 unit PO RIVERA@1700 Clopidogrel [Plavix] 75 mg PO DAILY@1700 Esomeprazole Magnesium [NexIUM] 20 mg PO DAILY@0800 Donepezil [Aricept] 5 mg PO DAILY@0800 lisinopriL [Zestril] 10 mg PO DAILY@1700 Atorvastatin [Lipitor] 20 mg PO SUWE@1700 Rivaroxaban [Xarelto] 7.5 mg PO DAILY@1700 Magnesium Hydroxide [Milk of Magnesia Concentrate] 7,200 mg PO Q48H PRN PRN Reason: Constipation HYDROcodone/APAP 5-325MG [Hamilton 5-325] 1 tab PO Q6H PRN PRN Reason: Pain Loperamide HCl [Imodium A-D] 2 - 4 mg PO DIRECTED PRN PRN Reason: Diarrhea Na Phos,M-B/Na Phos,Di-Ba [Fleet Adult] 133 ml RECTAL DAILY PRN PRN Reason: Constipation Albuterol Nebulized [Ventolin Nebulized] 2.5 mg INHALATION RT-Q4H PRN PRN Reason: Shortness Of Breath/Cough Lactose-Reduced Food [Ensure Plus] 120 ml PO TID@0800,1200,1700 Acetaminophen Tab [Tylenol] 650 mg PO Q4H PRN PRN Reason: GENERAL DISCOMFORT risperiDONE ODT [RisperDAL M-TAB] 2 mg PO DAILY@1700 predniSONE See Taper PO DAILY@0800 Furosemide [Lasix] 20 mg PO DAILY@0800 Docusate [Colace] 100 mg PO DAILY@0800 Azithromycin [Zithromax] 250 mg PO HS@2100 Vits A and D/White Pet/Lanolin [A and D Ointment] 1 applic TOPICAL DAILY No Action Levothyroxine Sodium [Synthroid] 50 mcg PO DAILY@0800 bisacodyL [Bisacodyl] 10 mg RECTAL DAILY PRN PRN Reason: Constipation Discharge Medication List Levothyroxine Sodium [Synthroid] 50 mcg PO DAILY@0800 01/24/17 [History] bisacodyL [Bisacodyl] 10 mg RECTAL DAILY PRN 02/20/20 [History] Follow up Appointment(s)/Referral(s): Jolly Loaiza DO [REFERRING] - 1-2 days (PATIENT DC TO HOSPICE HOUSE) Patient Instructions/Handouts: Hospice (DC) Discharge Disposition: DISCH TO HOSPICE MED FACILTY
[2020-02-29] MEDS ORDERED: CALCIUM GLUCONATE IV SCH ×6 (15:00)
[2020-02-29] MEDS ORDERED: POTASSIUM PHOSPHATE IV SCH ×6 (15:00)
[2020-02-29] MEDS ORDERED: MVI IV SCH ×6 (15:00)
[2020-02-29] MEDS ORDERED: [UNRECOGNIZED DRUG - OTHER] IV SCH ×6 (15:00)
[2020-02-29] MEDS ORDERED: SODIUM ACETATE IV SCH ×6 (15:00)
--- NOTE | 2020-03-01 09:50 | CDI ---
Documentation Clarification Form Date: 03/01/20 From: Candie Lynn Phone: If you have a question about this query, please contact Arely Lund Pediatric Medical Assistant at [phone] between 8am and 5pm. Admit Date: Discharge Date: Patient Name: Visit Number: ATTENTION: The Clinical Documentation Specialists (CDI) and [facility] Coding Staff appreciate your assistance in clarifying documentation. Please respond to the clarification below the line at the bottom and electronically sign. The CDI & [facility] Coding staff will review the response and follow-up if needed. Please note: Queries are made part of the Legal Health Record. If you have any questions, please contact the author of this message via ITS. Dear Dr. Loaiza Hypotension is documented in the ED note. History/Risk Factors: Dehydration, diastolic CHF exacerbation, COPD exacerbation, acute hypoxic respiratory failure, moderate malnutrition, CAD, previous MA Clinical Indicators: Decreased blood pressure. Patients B/P: 02/20/20 - 75/53, 68/50, 76/59, 75/53, 84/48, 84/48, 84/48, 81/53, 88/64, 80/58, 81/53, 76/59, 76/59, 150/74, 150/74, 162/78,151/78, 151/78 BP on 02/25/20 - 99/70, 103/53, 94/60, 96/64, 88/62, 88/60 Labs: WBC 10.8, Chloride 111, BUN 49 Treatment: TPN Fluid Bolus: 1 L NS In your professional opinion, can you please specify the etiology of the hypotension if known? Iatrogenic Hypotension Idiopathic Hypotension Drug Induced Hypotension Chronic Hypotension Other Condition, please specify Unable to determine hypotension due to CVA MTDD
== END 2020-02-29 13:34 | disposition hospice, inpatient (51) | DRG 190 ==
LOC: EC 13:40 → 3SCARD 15:42 → 3NCARDOBS 02-22 20:03
PROVIDERS: ADMIT Family Medicine; ATTEND Family Medicine
PROC: 05HF33Z Insertion of Infusion Device into Left Cephalic Vein, Percutaneous Approach (ICD-10-PCS; principal; 2020-02-20)
PROC: 3E0336Z Introduction of Nutritional Substance into Peripheral Vein, Percutaneous Approach (ICD-10-PCS; 2020-02-20)
DX: J44.1 Chronic obstructive pulmonary disease with (acute) exacerbation (principal); J96.01 Acute respiratory failure with hypoxia; G93.41 Metabolic encephalopathy; I50.33 Acute on chronic diastolic (congestive) heart failure; I63.511 Cerebral infarction due to unspecified occlusion or stenosis of right middle cerebral artery; J18.9 Pneumonia, unspecified organism; R40.2314 Coma scale, best motor response, none, 24 hours or more after hospital admission; R40.2124 Coma scale, eyes open, to pain, 24 hours or more after hospital admission; R40.2214 Coma scale, best verbal response, none, 24 hours or more after hospital admission; E44.0 Moderate protein-calorie malnutrition; J44.0 Chronic obstructive pulmonary disease with (acute) lower respiratory infection; R62.7 Adult failure to thrive; I11.0 Hypertensive heart disease with heart failure; E11.9 Type 2 diabetes mellitus without complications; Z20.828 Contact with and (suspected) exposure to other viral communicable diseases; Z51.5 Encounter for palliative care; Z66 Do not resuscitate; E03.9 Hypothyroidism, unspecified; E78.5 Hyperlipidemia, unspecified; I25.10 Atherosclerotic heart disease of native coronary artery without angina pectoris; I95.89 Other hypotension; I25.2 Old myocardial infarction; H02.401 Unspecified ptosis of right eyelid; M21.20 Flexion deformity, unspecified site; Z68.21 Body mass index [BMI] 21.0-21.9, adult; E86.0 Dehydration; R32 Unspecified urinary incontinence; R01.1 Cardiac murmur, unspecified; Z79.52 Long term (current) use of systemic steroids; Z79.01 Long term (current) use of anticoagulants; Z79.02 Long term (current) use of antithrombotics/antiplatelets; Z79.82 Long term (current) use of aspirin; Z79.890 Hormone replacement therapy; Z79.899 Other long term (current) drug therapy; Z87.891 Personal history of nicotine dependence; Z95.5 Presence of coronary angioplasty implant and graft; Z91.14 Patient's other noncompliance with medication regimen; Z86.73 Personal history of transient ischemic attack (TIA), and cerebral infarction without residual deficits; Z95.0 Presence of cardiac pacemaker; Z90.49 Acquired absence of other specified parts of digestive tract; Z88.1 Allergy status to other antibiotic agents; Z88.0 Allergy status to penicillin; Z82.49 Family history of ischemic heart disease and other diseases of the circulatory system
CPT/HCPCS: 36410; 36415; 70450; 71045; 71250; 76937; 80048; 80053; 82040; 82330; 82550; 82728; 83605; 83615; 83735; 83880; 84100; 84145; 84478; 84484; 85025; 85027; 85379; 85610; 85730; 86140; 87040; 93005; 94640; 96361; 96365; 96375; 99285